=== PATIENT | female | born 1940 | race Caucasian/White ===

== ENCOUNTER → 2016-08-12 | Outpatient (CLI) | payer BC ==
[~2016-08-12] MED LIST: ALBUAER19 INH; AMLO10CA PO; ASCA500 PO; CYAN10004 PO; FISHOIL PO; GLC500 PO; GLCSR25 PO; HYDC25 PO; METO1TAB69 PO; MULT-506 PO; NAPR1TAB9 PO; [UNRECOGNIZED DRUG - OTHER]
--- NOTE | 2016-08-12 15:37 | MAMMOGRAPHY REPORT ---
BILATERAL DIGITAL SCREENING MAMMOGRAM WITH CAD: 08/12/2016 CLINICAL HISTORY: Routine screening. Patient has no complaints. TECHNIQUE: Bilateral CC and MLO views were obtained. Current study was also evaluated with a Comput er Aided Detection (CAD) system. COMPARISON: Comparison is made to exams dated: 08/09/2015 mammogram, 08/03/2014 mammogram, 08/02/2013 m ammogram, 07/29/2012 mammogram, 10/02/2010 mammogram, and 09/18/2009 mammogram - [facility] nter. BREAST COMPOSITION: There are scattered areas of fibroglandular density in both breasts. FINDINGS: There are a few benign round calcifications in the breasts. No suspicious mass, director of architecture ural distortion or cluster of microcalcifications is seen. IMPRESSION: ACR BI-RADS CATEGORY 1: NEGATIVE There is no mammographic evidence of malignancy. A 1 year screening mammogram is recommended. The pa tient will receive written notification of the results. Approximately 10% of breast cancers are not detected with mammography. A negative mammographic report should not delay biopsy if a clinically suggestive mass is present. Lory De La Garza M.D. ay/:08/12/2016 14:52:06 Tailer Off: Ade RUBIO(Alfredo)(M), [facility] letter sent: Normal 1/2 BI-RADS Code: ACR BI-RADS Category 1: Negative
== END | disposition home or self-care (01) ==
LOC: C.MAMM 08:09
PROVIDERS: ATTEND Internal Medicine
DX: Z12.31 Encounter for screening mammogram for malignant neoplasm of breast (principal)

== ENCOUNTER → 2016-08-26 | Outpatient (CLI) | payer BC ==
[2016-08-26 09:47] LABS: BASO % 0.4 %; BASO ABS # 0.03 K/uL (0-0.2); COMPLETE YES; EOS % 3.5 %; HEMATOCRIT 47.8 % (37-47); IG% 0.1 %; LYMPH % 34.2 %; LYMPH ABS # 2.63 K/uL (1.2-3.4); MEAN CELL VOLUME 89.3 fL (80-100); MEAN CORPUSCULAR HEMOGLOBIN 29.2 pg (25-34); MEAN CORPUSCULAR HGB CONC 32.6 g/dl (32-36); MEAN PLATELET VOLUME 10.3 fL (7.4-10.4); MONO % 8.6 %; NEUT % 53.2 %; PLATELET COUNT 247 K/uL (130-400); RED BLOOD COUNT 5.35 M/uL (4.2-5.4)
[2016-08-26 09:49] LABS: URINE APPEARANCE CLEAR (CLEAR); URINE BILIRUBIN NEG (NEG); URINE COLOR YELLOW; URINE NITRITE NEG (NEG); URINE SPECIFIC GRAVITY 1.016 (1.000-1.030); UROBILINOGEN NEG (NEG); ZZUR CULT IF INDIC CLEAN CATCH NO
[2016-08-26 10:01] LABS: MANUAL MICROSCOPIC REQUIRED? NO; REVIEW REQ? NO
[2016-08-26 10:16] LABS: RATIO 11.6 mcg/mg (0-30.0)
[2016-08-26 10:27] LABS: ALT/SGPT 25 U/L (12-78); BLOOD UREA NITROGEN 19 mg/dl (7-18); BUN/CREATININE RATIO 21.3 (10-20); CALCIUM 9.8 mg/dl (8.5-10.1); CARBON DIOXIDE 31 mmol/L (21-32); CHLORIDE 100 mmol/L (98-107); CHOLESTEROL 217 mg/dl (0-200); GLUCOSE 108 mg/dl (70-99); POTASSIUM 3.9 mmol/L (3.5-5.1); SODIUM 138 mmol/L (136-145); TRIGLYCERIDES 220 mg/dl (0-150); VERY LOW DENSITY LIPOPROT CALC 44 mg/dl
[2016-08-26 10:30] LABS: ALB/GLOB RATIO 1.2 (0.9-2); ALKALINE PHOSPHATASE 90 U/L (45-117); AST/SGOT 14 U/L (15-37); CHOLESTEROL/HDL RATIO 5.6; HDL CHOLESTEROL 39 mg/dl; LDL CHOLESTEROL CALCULATED 134 mg/dl
[2016-08-26 10:33] LABS: ESTIMATED AVERAGE GLUCOSE 134 mg/dl; HA1C FLAG Normal (Normal)
--- NOTE | 2016-09-09 08:27 | CODING QUERY MEDICAL NECESSITY ---
CQSUPPORTING DIAGNOSIS NEEDED A supporting diagnosis is required for the test/procedure performed on this patient in order for us to be reimbursed by the patient's insurance. Please provide a supporting diagnosis for the following test/procedure listed below next to the test name along with your signature. *If there is no additional diagnosis for this patient that would support the following test/procedure please document that below next to the test/procedure. Test(s)/Procedure(s) that require a supporting diagnosis: DOS 08/26/16 VITAMIN B12 VITAMIN D Provider Signature: Date: Thank you [facility] Once completed, please kindly fax back to [phone] For questions please call [phone]
== END | disposition home or self-care (01) ==
LOC: C.LAB1850 08:46
PROVIDERS: ATTEND Internal Medicine
DX: E11.21 Type 2 diabetes mellitus with diabetic nephropathy (principal); N39.3 Stress incontinence (female) (male); R26.9 Unspecified abnormalities of gait and mobility; R20.0 Anesthesia of skin

== ENCOUNTER → 2017-01-05 | Outpatient (CLI) | payer BC ==
[~2017-01-05] MED LIST changes: +METO100T44 PO; -METO1TAB69 PO
== END | disposition home or self-care (01) ==
LOC: C.MAMM 09:21
PROVIDERS: ATTEND Internal Medicine
DX: Z13.820 Encounter for screening for osteoporosis (principal); R26.9 Unspecified abnormalities of gait and mobility; T14.8XXA Other injury of unspecified body region, initial encounter; M85.832 Other specified disorders of bone density and structure, left forearm; X58.XXXA Exposure to other specified factors, initial encounter

== ENCOUNTER → 2017-03-03 | Outpatient (CLI) | payer BC ==
[2017-03-03 10:37] LABS: HEMOGLOBIN A1C 6.3 % (4.5-5.6)
[2017-03-03 10:41] LABS: ALT/SGPT 21 U/L (12-78); BLOOD UREA NITROGEN 18 mg/dl (7-18); CALCIUM 9.6 mg/dl (8.5-10.1); CARBON DIOXIDE 29 mmol/L (21-32); CHOLESTEROL 201 mg/dl (0-200); CREATININE 0.79 mg/dl (0.60-1.20); GLUCOSE 147 mg/dl (70-99); POTASSIUM 4.2 mmol/L (3.5-5.1); SODIUM 137 mmol/L (136-145)
[2017-03-03 10:44] LABS: ALKALINE PHOSPHATASE 94 U/L (45-117); AST/SGOT 14 U/L (15-37); LDL CHOLESTEROL CALCULATED 128 mg/dl; TOTAL PROTEIN 7.2 gm/dl (6.4-8.2)
== END | disposition home or self-care (01) ==
LOC: C.LAB1850 09:27
PROVIDERS: ATTEND Internal Medicine
DX: E11.40 Type 2 diabetes mellitus with diabetic neuropathy, unspecified (principal)

== ENCOUNTER → 2017-09-02 | Outpatient (CLI) | payer BC ==
[2017-09-02 10:09] LABS: ALKALINE PHOSPHATASE 75 U/L (45-117); ALT/SGPT 21 U/L (12-78); AST/SGOT 13 U/L (15-37); BLOOD UREA NITROGEN 20 mg/dl (7-18); CARBON DIOXIDE 29 mmol/L (21-32); CREATININE 0.83 mg/dl (0.60-1.20); GLUCOSE 150 mg/dl (70-99); POTASSIUM 3.6 mmol/L (3.5-5.1); SODIUM 138 mmol/L (136-145); TOTAL PROTEIN 7.1 gm/dl (6.4-8.2)
[2017-09-02 10:11] LABS: HEMOGLOBIN A1C 6.3 % (4.5-5.6)
== END | disposition home or self-care (01) ==
LOC: C.LAB1850 07:46
PROVIDERS: ATTEND Internal Medicine
DX: E11.40 Type 2 diabetes mellitus with diabetic neuropathy, unspecified (principal)

== ENCOUNTER → 2017-09-04 | Outpatient (CLI) | payer BC | END | disposition home or self-care (01) | LOC: C.LAB1850 09:44 | PROVIDERS: ATTEND Internal Medicine | DX: E11.40 Type 2 diabetes mellitus with diabetic neuropathy, unspecified (principal) ==

== ENCOUNTER 2017-09-21 16:03 | Emergency (ER) | payer BC ==
[~2017-09-21] VITALS: Ht 161.3 cm; Wt 83.2 kg
[2017-09-21 16:23] VITALS: TEMP 37.1; Ht 161.3 cm; Wt 83.2 kg
[2017-09-21] MEDS ORDERED: ARTIFICIAL TEARS OP SOLN OP STA (18:13)
[2017-09-21] MEDS ORDERED: SODIUM CHLORIDE 0.9% 500ML 500 ML IV STA (18:13)
[2017-09-21] MEDS ORDERED: ONDANSETRON INJ 2 MG/ML 2 ML VIAL IV STA (18:13)
[2017-09-21] MEDS ORDERED: LORATADINE 10 MG TAB PO ONE (18:15)
[2017-09-21 18:37] VITALS: O2SAT 97
--- NOTE | 2017-09-21 18:38 | EMERGENCY ROOM VISIT NOTE ---
History Report prepared by Adis: Dilshad Lopez Under the Supervision of: Dr. Dmitry Torres M.D. First contact with patient: 18:11 Chief Complaint: HYPERTENSION Stated Complaint: HIGH BLOOD PRESSURE History of Present Illness The patient is a 77 year old female who presents to the Emergency Room with complaints of weakness that started today. The patient reports feeling dizzy, tired, nauseous, and shaky. The patient states that she has had blurry vision today but states that she does not feel like the room is spinning. She states that her vision up close is blurry despite wearing reading glasses and reports that she gets her eyes checked once per year. The patient also states that she is hypertensive and that has been constant. The patient states she saw her PCP on September 04 in regards to her blood pressure so her PCP doubled her medication , but she stated her blood pressure is even higher today. The patient also states she has been losing her balance doing everyday tasks such as pulling weeds and walking up stairs for the past year. The patient does state that her family has problems and that it is causing her stress. The patient denies a history of anxiety but states that she has been thinking about her family problems recently. The patient denies chest pain, shortness of breath, urinary symptoms, fevers, and chills. The patient states that she has type 2 diabetes and takes metformin but does not regularly check sugars. She also notes that she has seasonal allergies but does not take medications for them. She also denies a history of GERD and a myocardial infarction. Source of History: patient Onset: today Position: other (gernalized) Quality: other (Weakness) Associated Symptoms: + nausea, + fatigue, No fevers, No chills, No chest pain, No SOB, No vomiting, No urinary symptoms Review of Systems See HPI for pertinent positives and negatives. A total of ten systems were reviewed and were otherwise negative. Past Medical & Surgical Medical Problems: (1) Hypertension (2) Non-insulin dependent type 2 diabetes mellitus Family History Patient reports no known family medical history. Social History Smoking Status: Former Smoker Alcohol Use: none Marital Status: Housing Status: lives with significant other Occupation Status: retired Current/Historical Medications Scheduled Aspirin (Aspirin Ec), 81 MG PO DAILY Benazepril (Lotensin), 20 MG PO BID Cephalexin Monohydrate (Keflex), 500 MG PO BID Cyanocobalamin (Vitamin B12 100 Mcg), 200 MCG PO DAILY Glipizide (Glipizide Er), 5 MG PO DAILY Hydrochlorothiazide (Hctz), 25 MG PO Q2D Metformin Hcl (Glucophage), 1,000 MG PO BIDM Metoprolol Succinate (Metoprolol Succinate ER), 50 MG PO DAILY Multivitamin (Multivitamin), 1 TABLET PO DAILY Psyllium (Metamucil), 2 CAP PO Q12 Saccharomyces Boulardii (Florastor), 1 CAP PO BID Scheduled PRN Albuterol Sulfate (Proventil Hfa), 2 PUFFS INH Q4H PRN for SOB/Wheezing Docusate Sodium (Docusate Sodium), 100 MG PO BID PRN for Constipation Allergies Coded Allergies: Morphine (Verified Adverse Reaction, Unknown, 02/22/12) VOMITS Physical Exam Vital Signs Date Time Temp Pulse Resp B/P (MAP) Pulse Ox O2 Delivery O2 Flow Rate FiO2 09/21/17 20:20 74 09/21/17 20:05 80 20 219/120 96 Room Air 09/21/17 19:11 86 18 207/105 95 Room Air 09/21/17 18:37 97 Room Air 09/21/17 18:06 98 205/124 95 Room Air 09/21/17 16:23 37.1 111 18 197/113 96 Room Air Physical Exam GENERAL: Awake, alert, uncomfortable-appearing, in no distress, fatigued HENT: Normocephalic, atraumatic. Boggy nasal turbinates. Oropharynx unremarkable. Dry,cracked mucous membranes EYES: Normal conjunctiva. Sclera non-icteric. Bilateral hearing. NECK: Supple. No nuchal rigidity. FROM. No JVD. RESPIRATORY: Clear to auscultation. CARDIAC: Regular rate, normal rhythm. Extremities warm and well perfused. Pulses equal. ABDOMEN: Soft, non-distended. No tenderness to palpation. No rebound or guarding. No masses. RECTAL: Deferred. MUSCULOSKELETAL: Chest examination reveals no tenderness. The back is symmetrical on inspection without obvious abnormality. There is no CVA tenderness to palpation. No joint edema. LOWER EXTREMITIES: Calves are equal size bilaterally and non-tender. No edema. No discoloration. NEURO: Normal sensorium. No sensory or motor deficits noted. Normal cerebellar function with [id number]-[id number], alternating palms, gbyr-mn-bqaj. SKIN: No rash or jaundice noted. Medical Decision & Procedures ER Provider Diagnostic Interpretation: Radiology results as stated below per my review and radiologist interpretation: CHEST ONE VIEW PORTABLE CLINICAL HISTORY: 77 years-old Female presenting with CHEST PAIN. TECHNIQUE: Portable upright AP view of the chest was obtained. COMPARISON: 03/22/2012. FINDINGS: Atherosclerosis of the aortic arch. Cardiac silhouette normal in size. No focal opacity. No large effusion or pneumothorax. Degenerative changes of the thoracic spine. Large hiatal hernia. IMPRESSION: 1. No acute cardiopulmonary disease. 2. Large hiatal hernia. Electronically signed by: Ming Bermudez M.D. 09/21/2017 7:00 PM Dictated Date/Time: 09/21/2017 6:59 PM HEAD WITHOUT CONTRAST (CT) CLINICAL HISTORY: 77 years-old Female presenting with dizziness, high blood pressure, headache. TECHNIQUE: Multidetector CT imaging of the head was performed without the use of intravenous contrast. IV contrast: None. A dose lowering technique was used consistent with the principles of ALARA (as low as reasonably achievable). COMPARISON: 11/12/2012. CT DOSE (mGy.cm): The estimated cumulative dose is 537.48 mGy.cm. FINDINGS: Software Implementation Project Manager topogram: Unremarkable. Ventricles and sulci normal in size. Brain parenchyma normal in appearance with preserved harper-white differentiation. No mass effect or midline shift. No hemorrhage or acute territorial infarct. No extra-axial fluid collection. Paranasal sinuses and mastoid air cells clear. Calvarium intact. IMPRESSION: 1. No acute intracranial abnormality. Electronically signed by: Ming Bermudez M.D. 09/21/2017 7:29 PM Dictated Date/Time: 09/21/2017 7:27 PM Laboratory Results 09/21/17 18:50 Red Blood Count 4.90, Mean Corpuscular Volume 91.2, Mean Corpuscular Hemoglobin 31.4, Mean Corpuscular Hemoglobin Concent 34.5, Mean Platelet Volume 10.3, Neutrophils (%) (Auto) 51.9, Lymphocytes (%) (Auto) 36.7, Monocytes (%) (Auto) 6.6, Eosinophils (%) (Auto) 3.9, Basophils (%) (Auto) 0.6, Neutrophils # (Auto) 3.76, Lymphocytes # (Auto) 2.66, Monocytes # (Auto) 0.48, Eosinophils # (Auto) 0.28, Basophils # (Auto) 0.04 09/21/17 18:50 09/21/17 19:46 Test 09/21/17 18:50 09/21/17 19:46 09/21/17 20:07 White Blood Count 7.24 K/uL (4.8-10.8) Red Blood Count 4.90 M/uL (4.2-5.4) Hemoglobin 15.4 g/dL (12.0-16.0) Hematocrit 44.7 % (37-47) Mean Corpuscular Volume 91.2 fL (80-100) Mean Corpuscular Hemoglobin 31.4 pg (25-34) Mean Corpuscular Hemoglobin Concent 34.5 g/dl (32-36) Platelet Count 210 K/uL (130-400) Mean Platelet Volume 10.3 fL (7.4-10.4) Neutrophils (%) (Auto) 51.9 % Lymphocytes (%) (Auto) 36.7 % Monocytes (%) (Auto) 6.6 % Eosinophils (%) (Auto) 3.9 % Basophils (%) (Auto) 0.6 % Neutrophils # (Auto) 3.76 K/uL (1.4-6.5) Lymphocytes # (Auto) 2.66 K/uL (1.2-3.4) Monocytes # (Auto) 0.48 K/uL (0.11-0.59) Eosinophils # (Auto) 0.28 K/uL (0-0.5) Basophils # (Auto) 0.04 K/uL (0-0.2) RDW Standard Deviation 43.4 fL (36.4-46.3) RDW Coefficient of Variation 13.1 % (11.5-14.5) Immature Granulocyte % (Auto) 0.3 % Immature Granulocyte # (Auto) 0.02 K/uL (0.00-0.02) Anion Gap 7.0 mmol/L (3-11) Est Creatinine Clear Calc Drug Dose 63.2 ml/min Estimated GFR () 86.3 Estimated GFR (Non- 74.5 BUN/Creatinine Ratio 19.2 (10-20) Calcium Level 9.0 mg/dl (8.5-10.1) Phosphorus Level 2.3 mg/dl (2.5-4.9) Total Bilirubin 0.4 mg/dl (0.2-1) Alanine Aminotransferase (ALT/SGPT) 25 U/L (12-78) Alkaline Phosphatase 84 U/L (45-117) Troponin I < 0.015 ng/ml (0-0.045) Pro-B-Type Natriuretic Peptide 156 pg/ml (0-1800) Total Protein 7.4 gm/dl (6.4-8.2) Albumin 3.8 gm/dl (3.4-5.0) Lipase 81 U/L (73-393) Magnesium Level 1.6 mg/dl (1.8-2.4) Direct Bilirubin 0.1 mg/dl (0-0.2) Aspartate Amino Transf (AST/SGOT) 15 U/L (15-37) Urine Color YELLOW Urine Appearance CLEAR (CLEAR) Urine pH 6.5 (4.5-7.5) Urine Specific Rew 1.022 (1.000-1.030) Urine Protein NEG (NEG) Urine Glucose (UA) NEG (NEG) Urine Ketones TRACE (NEG) Urine Occult Blood NEG (NEG) Urine Nitrite POS (NEG) Urine Bilirubin NEG (NEG) Urine Urobilinogen NEG (NEG) Urine Leukocyte Esterase SMALL (NEG) Urine WBC (Auto) 5-10 /hpf (0-5) Urine RBC (Auto) 0-4 /hpf (0-4) Urine Hyaline Casts (Auto) 1-5 /lpf (0-5) Urine Epithelial Cells (Auto) 10-20 /lpf (0-5) Urine Bacteria (Auto) 4+ (NEG) Laboratory results reviewed by me Medications Administered Medications (Trade) Dose Ordered Sig/Tameka Route Start Time Stop Time Status Last Admin Dose Admin Sodium Chloride 500 ml @ 999 mls/hr Q31M STAT IV 09/21/17 18:13 09/21/17 18:43 DC 09/21/17 19:09 999 MLS/HR Loratadine (Claritin Tab) 10 mg NOW ONCE PO 09/21/17 18:15 09/21/17 18:26 DC 09/21/17 19:09 10 MG Artificial Tears (Artificial Tears) 2 drops NOW STAT OP 09/21/17 18:13 09/21/17 18:26 DC 09/21/17 19:10 2 DROPS Potassium/ Phosphorus/Sodium (Phospha 250 Neutral 155-852-130 Mg) 2 tab NOW STAT PO 09/21/17 19:45 09/21/17 19:47 DC 09/21/17 20:04 2 TAB ECG Per My Interpretation Indication: other (Hypertension) Rate (beats per minute): 88 Rhythm: normal sinus Findings: no acute ischemic change, other (Normal [place]) ED Course 1811: The patient was evaluated in room A9. A complete history and physical exam was performed. Medical Decision I reviewed the patient's past medical history, medications, and the nursing notes as described above. Differential diagnosis: Etiologies such as metabolic, infection, hypo/hyperglycemia, electrolyte abnormalities, cardiac sources, intracerebral event, toxicologic, neurologic, as well as others were entertained. The patient is a 77-year-old woman with a past medical history of hypertension who presents emergency department with dizziness, blurred vision, generalized weakness per hpi. On arrival the patient is fatigued and uncomfortable but no acute distress, afebrile, HR 111, hypertensive 200s/120s otherwise stable. On exam, patient appears clinically dry. Neurologically intact including normal cerebellar function with dvvoap-lx-cloe, alternating palms, xlvu-pn-mpne. Patient has bilateral tearing from her eyes and some mild nasal congestion which she reports is chronic due to her seasonal allergies. Additionally the patient reports she has been under a lot of family stress for years and while she denies any new stress related to this her feels she has been perseverating over this recently. The patient does become tearful when we refer to these issues. EKG unremarkable without acute ischemia. Chest x-ray negative. CT head negative for acute findings. UA consistent with UTI with positive nitrites, WBCs, 4+ bacteria. Patient was given IV fluids, electrolyte repletion with improvement in her symptoms and resolution of her blurred vision/tearing. Additionally patient's heart rate improved to the 80s. Pressure still elevated however given the patient's clinical improvement with hydration alone, in the setting of UTI, patient's hypertension likely the primary factor related to her symptoms. Will treat with Keflex. Plan for PCP follow-up. Findings and plan for follow-up reviewed with patient. Patient agreeable and d/c'd per discharge instructions. Head Trauma GCS Score: 13 Medication Reconcilliation Current Medication List: was personally reviewed by me Blood Pressure Screening Patient's blood pressure: Elevated blood pressure Blood pressure disposition: Referred to PCP Impression Primary Impression: Urinary tract infection Additional Impressions: Dehydration Dizziness Scribe Attestation The scribe's documentation has been prepared under my direction and personally reviewed by me in its entirety. I confirm that the note above accurately reflects all work, treatment, procedures, and medical decision making performed by me. Departure Information Dispostion Home / Self-Care Prescriptions Saccharomyces Boulardii (Florastor) 250 Mg Cap 1 CAP PO BID for 10 Days, #20 CAP Prov: Dmitry Torres M.D. 09/21/17 Cephalexin Monohydrate (KEFLEX) 500 Mg Cap 500 MG PO BID for 7 Days, #14 CAP Prov: Dmitry Torres M.D. 09/21/17 Referrals RV. Quintero MD (PCP) Forms HOME CARE DOCUMENTATION FORM, IMPORTANT VISIT INFORMATION, WORK / SCHOOL INSTRUCTIONS Patient Instructions ED Dehydration, ED UTI Cystitis Female, High Blood Pressure, My [facility] Additional Instructions Please follow up with your primary care physician in the next 1-3 days for re- evaluation and to recheck your electrolytes (today your Magnesium was 1.6 and your phosphorus was 2.3) and discuss management of your blood pressure. Your symptoms are likely related to mild dehydration in the setting of a urinary tract infection. Otherwise, your exam, EKG, chest xray, and lab results did not show signs of an emergent condition at this time. Keflex as directed. Florastor, probiotic, to help prevent antibiotic associated diarrhea. Daily multi-vitamin. Okhn-wcn-okcswng anti-histamine (e.g. Claritin, Zyrtec) as needed for seasonal allergies. Artificial tears as needed for seasonal allergy related eye-irritation. Drink plenty of fluids to ensure hydration. Return to the emergency department for worsening symptoms as described in the accompanying instructions. Problem Qualifiers
[2017-09-21 18:56] LABS: BASO % 0.6 %; BASO ABS # 0.04 K/uL (0-0.2); EOS % 3.9 %; EOS ABS # 0.28 K/uL (0-0.5); HEMATOCRIT 44.7 % (37-47); HEMOGLOBIN 15.4 g/dL (12.0-16.0); IG# 0.02 K/uL (0.00-0.02); LYMPH % 36.7 %; LYMPH ABS # 2.66 K/uL (1.2-3.4); MEAN CELL VOLUME 91.2 fL (80-100); MEAN CORPUSCULAR HEMOGLOBIN 31.4 pg (25-34); MEAN CORPUSCULAR HGB CONC 34.5 g/dl (32-36); MEAN PLATELET VOLUME 10.3 fL (7.4-10.4); MONO % 6.6 %; MONO ABS # 0.48 K/uL (0.11-0.59); NEUT % 51.9 %; NEUT ABS # 3.76 K/uL (1.4-6.5); PLATELET COUNT 210 K/uL (130-400); RED CELL DISTRIBUTION WIDTH CV 13.1 % (11.5-14.5); RED CELL DISTRIBUTION WIDTH SD 43.4 fL (36.4-46.3); WHITE BLOOD COUNT 7.24 K/uL (4.8-10.8)
[2017-09-21] MEDS ORDERED: METF-384 PO (19:00)
--- NOTE | 2017-09-21 19:01 | DIAGNOSTIC IMAGING REPORT ---
CHEST ONE VIEW PORTABLE CLINICAL HISTORY: 77 years-old Female presenting with CHEST PAIN. TECHNIQUE: Portable upright AP view of the chest was obtained. COMPARISON: 03/22/2012. FINDINGS: Atherosclerosis of the aortic arch. Cardiac silhouette normal in size. No focal opacity. No large effusion or pneumothorax. Degenerative changes of the thoracic spine. Large hiatal hernia. IMPRESSION: 1. No acute cardiopulmonary disease. 2. Large hiatal hernia. Electronically signed by: Ming Bermudez M.D. 09/21/2017 7:00 PM Dictated Date/Time: 09/21/2017 6:59 PM
[2017-09-21] MEDS ORDERED: GLIP-197 PO (19:02)
[2017-09-21] MEDS ORDERED: ASPI81TA28 PO (19:02)
[2017-09-21] MEDS ORDERED: HYDR25TA4 PO (19:04)
[2017-09-21] MEDS ORDERED: TPRSR50 PO (19:05)
[2017-09-21] MEDS ORDERED: BENA20TA14 PO (19:07)
[2017-09-21] MEDS ORDERED: CYAN100T6 PO (19:09)
[2017-09-21] MEDS ORDERED: PSYL0.524 PO (19:11)
[2017-09-21] MEDS ORDERED: DOCU100C31 PO (19:13)
[2017-09-21] MEDS ORDERED: ALBUAER INH (19:15)
--- NOTE | 2017-09-21 19:30 | DIAGNOSTIC IMAGING REPORT ---
HEAD WITHOUT CONTRAST (CT) CLINICAL HISTORY: 77 years-old Female presenting with dizziness, high blood pressure, headache. TECHNIQUE: Multidetector CT imaging of the head was performed without the use of intravenous contrast. IV contrast: None. A dose lowering technique was used consistent with the principles of ALARA (as low as reasonably achievable). COMPARISON: 11/12/2012. CT DOSE (mGy.cm): The estimated cumulative dose is 537.48 mGy.cm. FINDINGS: Family Nurse Practitioner topogram: Unremarkable. Ventricles and sulci normal in size. Brain parenchyma normal in appearance with preserved harper-white differentiation. No mass effect or midline shift. No hemorrhage or acute territorial infarct. No extra-axial fluid collection. Paranasal sinuses and mastoid air cells clear. Calvarium intact. IMPRESSION: 1. No acute intracranial abnormality. Electronically signed by: Ming Bermudez M.D. 09/21/2017 7:29 PM Dictated Date/Time: 09/21/2017 7:27 PM
[2017-09-21 19:33] LABS: ALBUMIN 3.8 gm/dl (3.4-5.0); ALKALINE PHOSPHATASE 84 U/L (45-117); ALT/SGPT 25 U/L (12-78); BLOOD UREA NITROGEN 15 mg/dl (7-18); CARBON DIOXIDE 27 mmol/L (21-32); CREATININE 0.77 mg/dl (0.60-1.20); GLUCOSE 124 mg/dl (70-99); LIPASE 81 U/L (73-393); PHOSPHORUS 2.3 mg/dl (2.5-4.9); SODIUM 141 mmol/L (136-145); TOTAL PROTEIN 7.4 gm/dl (6.4-8.2)
[2017-09-21] MEDS ORDERED: POT PHOSPHATE MONOBASIC W/ SOD TAB PO STA (19:45)
[2017-09-21] MEDS ORDERED: CEPHALEXIN MONOHYDRATE 250 MG CAP PO STA (20:27)
[2017-09-21 20:28] LABS: POTASSIUM 3.8 mmol/L (3.5-5.1)
[2017-09-21] MEDS ORDERED: MAGNESIUM OXIDE 400 MG TAB PO STA (20:39)
[2017-09-21] MEDS ORDERED: CEPH500C2 PO (20:52)
[2017-09-21] MEDS ORDERED: SACC250C3 PO (20:54)
[2017-09-21 21:25] VITALS: BP 206/122; PULSE 81; O2SAT 95
--- NOTE | 2017-09-23 14:51 | Pharmacy Progress Note ---
ED Pharmacist Culture FollowUp Date of Service: Sep 23, 2017. Patient was sent home with a prescription for cephalexin, which should cover the E. coli growing from the patient's urine culture, based on reported sensitivity to cefazolin.
== END 2017-09-21 21:37 | disposition home or self-care (01) ==
LOC: C.EDB 16:04 → C.EDA 21:37
DX: N39.0 Urinary tract infection, site not specified (principal); E86.0 Dehydration; R42 Dizziness and giddiness; E83.42 Hypomagnesemia; J30.2 Other seasonal allergic rhinitis; I10 Essential (primary) hypertension; E11.9 Type 2 diabetes mellitus without complications; Z79.84 Long term (current) use of oral hypoglycemic drugs; Z79.899 Other long term (current) drug therapy; Z79.82 Long term (current) use of aspirin; Z87.891 Personal history of nicotine dependence; Z88.6 Allergy status to analgesic agent

== ENCOUNTER 2022-05-11 10:07 | Inpatient (IN) ==
[2022-05-11] MEDS ORDERED: HYDROcodone/HOMATROPINE SYRUP 5MG/1.5MG 5ML UDP PO STA (10:25)
[2022-05-11] MEDS ORDERED: ALBUT/IPRATROP 3MG/0.5MG NEB 3 ML VIAL NEB ONE (10:25)
[2022-05-11] MEDS ORDERED: SODIUM CHLORIDE 0.9% 1000ML 1,000 ML IV ONE (10:25)
--- NOTE | 2022-05-11 10:30 | Emergency Department Note ---
Impression & Plan COVID-19, Weakness, Hypomagnesemia, COPD with acute exacerbation, Hypoxia ED Provider Note Name: TABATHA SIM Age: 81 Sex: F Arrives Via: Walk-In Informant: Patient, ED Provider: Erik Hyde MD Chief Complaint: Illness and breathing difficulty Impression: As per impression above Medical Decision Makin-year-old female with history of COPD arrives for evaluation of 7 days of worsening illness. Patient with increasing cough, congestion, breathing diff iculty, weakness, lack of appetite and weight loss. On examination patient has diffusely tight lung sounds and breathing difficulty. She has initially good O2 sat but is working quite hard. She was given an hour-long nebulizer with vast improvement in breathing but is a bit hypoxic now. She has a chest x-ray which is essentially unremarkable. Bio fire is positive for COVID-19. Her labs are r emarkable for quite low magnesium which replacement was started here in the ER. Patient does not have any evidence of cardiac issue and her symptoms are not consistent with PE but more consistent with her COVID infection that she been dealing with for the last week. With her COPD history and her breathing difficulty and the worsening hypoxia she was given IV Decadron as well. No clear indication for antibiotics at this time. In the setting of hypoxia low magnesium COVID and generalized weakness clearly she requires hospitalization. She is comfortable with this plan as is . Prior Medical Record and Triage/Nursing Notes reviewed by Me External chart reviewed by me Differentials:COPD exacerbation, COVID, pneumonia, pneumothorax, electrolyte imbalance, dehydration amongst many other pathologies considered Vital Signs: reviewed and remarkable for hypoxia. I will note that blood pressure on multiple rechecks was stable throughout her stay under my care Interventions: Saline bolus, Decadron 10 mg IV, magnesium 1 g IV, DuoNeb 1 hour nebulizer Labs:Reviewed and remarkable for hypomagnesemia, positive COVID, multiple other labs reviewed Imagin view chest x-ray as per my interpretation. There is no overt lobar infiltrate other than some mild congestion at the bases noted. Cardiac/Tele Monitoring: Cardiac Monitoring: An Order was placed for continuous cardiac monitoring. The monitor shows a rate of 80 with a normal sinus rhythm. Consults:Dr Abbey RODRIGUEZ Hospitalist Plan: Disposition:Hospitalization. Condition: Fair History of Present Illness:81-year-old female arrives for evaluation illness. Patient has been sick for the last week. Associated cough, sore throat, congestion, body aches, fatigue, weakness and lack of appetite. She is lost about 5 to 10 pounds in the last week. States she has 0 appetite. Denies any syncope, chest pain, back pain, abdominal pain, urinary/bowel symptoms, leg swelling, calf pain or other concerning signs or symptoms. Not taking any medications for this. Notes has been has been sick for the last few days as well. Patient states she cannot control her cough. States cough is harsh no nproductive. Past History:Type 2 diabetes, hypertension, osteoporosis, hyperlipidemia triglyceridemia, COPD, multiple other see chart Home Medications:See Below Allergies:Morphine and gabapentin Vitals:Blood Pressure: 104/60, Pulse 76, RR 20, T 36.4C, O2 95% on RA Physical Exam: GENERAL: Patient is unwell appearing and in moderate distress. Harsh productive cough EYES: No scleral icterus, unremarkable pupils. ENT: Mucous membranes dry, no nasal congestion. NECK: No masses appreciated, RESPIRATORY: Very tight lung sounds moving minimal air with a harsh n onproductive cough CARDIOVASCULAR: Regular rate and rhythm.No murmurs, rubs, gallops appreciated. GASTROINTESTINAL: Abdomen soft, non-tender, no peritonitis. BACK: No midline tenderness, no CVA tenderness EXTREMITIES: Normal motion all extremities, no cyanosis, no edema. NEUROLOGIC: Alert and oriented, no focal neurologic deficit appreciated SKIN: No rash, no jaundice, no diaphoresis. PSYCH: Appropriate GCS: 15 ED Course: Times/Reassessments: Patient is significantly improved breathing with lung nebulizer however oxygen saturation is worsened. Cough is a bit improved as well. She does look more comfortable. Agreeable to hospitalization Critical Care: I have personally spent 40 minutes of critical care time in the direct management of this patient. Acute hypoxia respiratory distress secondary to COVID 19 along with significant hypomagnesium requiring repletion. This was a life/limb threatening event. This 40 minutes is in excess of all separately billable procedures. Erik yHde MD Past Med/Surg History Medical History (Updated 05/11/22 @ 15:34 by Erik Hyde MD) Chronic obstructive pulmonary disease Controlled type 2 diabetes with neuropathy Diabetic nephropathy Diabetic peripheral neuropathy associated with type 2 diabetes mellitus Essential hypertriglyceridemia Fall, accidental Hip fracture Internal hemorrhoids Low back pain Osteopenia Seborrheic dermatitis Sensorineural hearing loss (SNHL) of both ears Stress incontinence in female URI (upper respiratory infection) Surgical History History of back surgery History of removal of cyst Hx of tonsillectomy S/P appendectomy Family History Father Emphysema of lung Sister Breast cancer Denies family history of Ovarian cancer Prostate cancer Myocardial infarction Colorectal cancer Social History Smoking Status: Never smoker Second Hand Exposure: Yes; Hx Alcohol Use: No Hx Substance Use: No Preferred Language: Cypriot Primary Care Pediatrician Required: No marital status: Current Living Situation: Spouse current occupational status: retired Feels Safe at Home: Yes Childhood Exposure to Second-Hand Smoke: Yes Dental Care, Regularly: Yes Physical Activity Frequency: 1-2 Times per Week Seatbelt Use: always Sunscreen Use: Yes Allergies Allergies Allergy/AdvReac Type Severity Reaction Status Date / Time gabapentin AdvReac Unknown Confusion Verified 10/31/21 08:42 morphine AdvReac Unknown Unknown Verified 08/12/21 09:13 Home Meds Home Medications Medication Instructions Recorded Confirmed cyanocobalamin (vitamin B-12) 100 200 mcg PO BID #30 tabs 09/07/18 05/11/22 mcg tablet metoprolol succinate 100 mg 100 mg PO HS 05/11/22 05/11/22 tablet,extended release 24 hr Previous Rx's Medication Instructions Recorded cholecalciferol (vitamin D3) 25 1,000 units PO DAILY #30 caps 09/07/18 mcg (1,000 unit) capsule albuterol sulfate 90 mcg/actuation 1 - 2 puffs inhalation Q6H PRN 10/26/18 aerosol inhaler shortness of breath or wheezing #18 grams naproxen sodium 220 mg capsule 220 mg PO BID PRN pain #10 caps 03/15/20 (Aleve) amlodipine 10 mg tablet 10 mg PO DAILY #90 tabs 12/04/21 benazepril 20 mg tablet 20 mg PO DAILY #90 tabs 12/04/21 metformin 1,000 mg tablet 1,000 mg PO BID #180 tabs 12/04/21 hydrochlorothiazide 25 mg tablet See Rx Instructions .Route 01/16/22 .COMPLEX #45 tabs glipizide 5 mg tablet, extended 5 mg PO DAILY #90 tabs 04/25/22 release 24 hr blood sugar diagnostic (OneTouch #100 ea 04/29/22 Verio test strips) Results & Data (ED) Vital Signs Vital Signs - 24 hr 05/11/22 10:13 05/11/22 10:47 05/11/22 11:53 Temperature 36.4 C L Temperature Source Temporal Artery Scan Pulse Rate 76 83 Pulse Rate [Right Finger] 74 Respiratory Rate 20 18 Respiratory Effort / Characteristics Non-Labored Non-Labored Spontaneous Respiratory Depth Normal Pulse Oximetry 95 96 Oxygen Delivery Method Room Air Room Air Oxygen Flow Rate Sepsis Recent Fever Within 48 Hours No Sepsis New/Unexplained Change in Mental Status N/A Sepsis Action Taken by Nursing No Action Required 05/11/22 12:29 05/11/22 12:31 Temperature Temperature Source Pulse Rate Pulse Rate [Right Finger] Respiratory Rate 20 Respiratory Effort / Characteristics Respiratory Depth Pulse Oximetry 85 L 90 Oxygen Delivery Method Room Air Nasal Cannula Oxygen Flow Rate 2 2 Sepsis Recent Fever Within 48 Hours Sepsis New/Unexplained Change in Mental Status Sepsis Action Taken by Nursing Laboratory Data 05/11/22 10:45 05/11/22 10:45 Lab Results 05/11/22 05/11/22 05/11/22 Range/Units 10:45 10:45 10:45 WBC 4.89 (4.8-10.8) K/ul RBC 5.41 H (4.20-5.40) M/uL Hgb 15.8 (12.0-16.0) g/dl Hct 47.2 H (37.0-47.0) % MCV 87.2 (80.0-100.0) fL MCH 29.2 (25.0-34.0) pg MCHC 33.5 (32.0-36.0) g/dL RDW Std Deviation 43.9 (36.4-46.3) fL RDW Coeff of Latasha 13.8 (11.5-14.5) % Plt Count 202 (130-400) K/uL MPV 11.4 (9.4-12.4) fL Immature Gran % (Auto) 0.2 % Neut % (Auto) 53.0 % Lymph % (Auto) 33.5 % Bollinger % (Auto) 12.3 % Eos % (Auto) 0.4 % Baso % (Auto) 0.6 % Neut # (Auto) 2.59 (1.40-6.50) K/uL Lymph # (Auto) 1.64 (1.2-3.4) K/uL Bollinger # (Auto) 0.60 H (0.11-0.59) K/uL Eos # (Auto) 0.02 (0-0.50) K/uL Baso # (Auto) 0.03 (0-0.2) K/uL Immature Gran # (Auto) 0.01 (0.01-0.20) K/uL ESR (0-30) mm/hr Sodium 139 (136-145) mmol/L Potassium 3.9 (3.5-5.1) mmol/L Chloride 101 (98-107) mmol/L Carbon Dioxide 27 (21-32) mmol/L Anion Gap 11 (3-11) BUN 27 H (6-23) mg/dl Creatinine 1.05 (0.6-1.2) mg/dl Est Cr Clr Drug Dosing 39.3 ml/min Est GFR ( Amer) 57.7 ml/min Est GFR (Non-Af Amer) 49.8 ml/min BUN/Creatinine Ratio 25.7 H (10-20) Glucose 157 H (70-99(Fasting)) mg/dl Calcium 9.3 (8.6-10.3) mg/dl Magnesium 1.3 L (1.7-2.4) mg/dl Troponin I High Sens 4.4 (0-14) pg/ml C-Reactive Protein 3.28 H (0-0.5) mg/dl Adenovirus (PCR) Not Detected (NotDetected) B. pertussis DNA (PCR) Not Detected (NotDetected) B.parapertussis DNA PCR Not Detected (NotDetected) C. pneumoniae DNA (PCR) Not Detected (NotDetected) Coronavirus OC43 (PCR) Not Detected (NotDetected) Coronavirus HKU1 (PCR) Not Detected (NotDetected) Coronavirus 229E (PCR) Not Detected (NotDetected) SARS-CoV-2 (PCR) DETECTED A* (NotDetected) Coronavirus NL63 (PCR) Not Detected (NotDetected) Human Metapneumovir PCR Not Detected (NotDetected) Influenza Type A (PCR) Not Detected (NotDetected) Influenza Type B (PCR) Not Detected (NotDetected) M. pneumoniae (PCR) Not Detected (NotDetected) Parainfluenza 1 (PCR) Not Detected (NotDetected) Parainfluenza 2 (PCR) Not Detected (NotDetected) Parainfluenza 3 (PCR) Not Detected (NotDetected) Parainfluenza 4 (PCR) Not Detected (NotDetected) RSV (PCR) Not Detected (NotDetected) Entero/Rhino (PCR) Not Detected (NotDetected) 05/11/22 Range/Units 10:45 WBC (4.8-10.8) K/ul RBC (4.20-5.40) M/uL Hgb (12.0-16.0) g/dl Hct (37.0-47.0) % MCV (80.0-100.0) fL MCH (25.0-34.0) pg MCHC (32.0-36.0) g/dL RDW Std Deviation (36.4-46.3) fL RDW Coeff of Latasha (11.5-14.5) % Plt Count (130-400) K/uL MPV (9.4-12.4) fL Immature Gran % (Auto) % Neut % (Auto) % Lymph % (Auto) % Bollinger % (Auto) % Eos % (Auto) % Baso % (Auto) % Neut # (Auto) (1.40-6.50) K/uL Lymph # (Auto) (1.2-3.4) K/uL Bollinger # (Auto) (0.11-0.59) K/uL Eos # (Auto) (0-0.50) K/uL Baso # (Auto) (0-0.2) K/uL Immature Gran # (Auto) (0.01-0.20) K/uL ESR 16 (0-30) mm/hr Sodium (136-145) mmol/L Potassium (3.5-5.1) mmol/L Chloride (98-107) mmol/L Carbon Dioxide (21-32) mmol/L Anion Gap (3-11) BUN (6-23) mg/dl Creatinine (0.6-1.2) mg/dl Est Cr Clr Drug Dosing ml/min Est GFR ( Amer) ml/min Est GFR (Non-Af Amer) ml/min BUN/Creatinine Ratio (10-20) Glucose (70-99(Fasting)) mg/dl Calcium (8.6-10.3) mg/dl Magnesium (1.7-2.4) mg/dl Troponin I High Sens (0-14) pg/ml C-Reactive Protein (0-0.5) mg/dl Adenovirus (PCR) (NotDetected) B. pertussis DNA (PCR) (NotDetected) B.parapertussis DNA PCR (NotDetected) C. pneumoniae DNA (PCR) (NotDetected) Coronavirus OC43 (PCR) (NotDetected) Coronavirus HKU1 (PCR) (NotDetected) Coronavirus 229E (PCR) (NotDetected) SARS-CoV-2 (PCR) (NotDetected) Coronavirus NL63 (PCR) (NotDetected) Human Metapneumovir PCR (NotDetected) Influenza Type A (PCR) (NotDetected) Influenza Type B (PCR) (NotDetected) M. pneumoniae (PCR) (NotDetected) Parainfluenza 1 (PCR) (NotDetected) Parainfluenza 2 (PCR) (NotDetected) Parainfluenza 3 (PCR) (NotDetected) Parainfluenza 4 (PCR) (NotDetected) RSV (PCR) (NotDetected) Entero/Rhino (PCR) (NotDetected) Administered Medications Remdesivir 200 mg/ Sodium (Chloride) 250 mls @ 125 mls/hr IV TODAY@1430 ONE; Protocol Stop: 05/11/22 16:29 Last Admin: 05/11/22 14:31 Dose: 125 mls/hr Documented By: NMS Discontinued Medications Albuterol (Albut/Ipratrop 3mg/0.5mg Neb 3 Ml Vial) 12 ml NEB ONE ONE; Protocol Stop: 05/11/22 10:26 Last Admin: 05/11/22 10:47 Dose: 12 ml Documented By: EAM Dexamethasone Sodium Phosphate (DexamethasonePf 10 Mg/Ml Vial) 10 mg IV NOW ONE Stop: 05/11/22 11:46 Last Admin: 05/11/22 12:16 Dose: 10 mg Documented By: ALENA Hydrocodone Bit/Homatropine Methylb (Hydrocodone/Homatropine Syrup 5mg/1.5mg 5ml Udp) 5 ml PO NOW STA Stop: 05/11/22 10:26 Last Admin: 05/11/22 10:48 Dose: 5 ml Documented By: DAHIANA Sodium Chloride (Nss 1000ml) 1,000 mls @ 999 mls/hr IV .Q1H1M ONE Stop: 05/11/22 11:25 Last Infusion: 05/11/22 12:00 Dose: 0 mls/hr Documented By: Admin: 05/11/22 10:48 Dose: 999 mls/hr Documented By: DAHIANA Magnesium Sulfate/Dextrose (Magnesium Sulfate / D5w) 1 gm in 100 mls @ 100 mls/hr IV NOW STA Stop: 05/11/22 12:42 Last Infusion: 05/11/22 13:28 Dose: 0 mls/hr Documented By: Admin: 05/11/22 12:16 Dose: 100 mls/hr Documented By: ALENA Imaging Data Radiologist's Impression: Chest X-Ray 05/11/22 10:26 XR chest 1V portable CLINICAL HISTORY: cough TECHNIQUE: Single frontal radiograph of the chest was obtained. Comparison: Comparison is made to chest radiograph 05/06/2019 FINDINGS: No lines and tubes are seen. The cardiomediastinal silhouette is normal. The lungs are clear. No evidence of pleural effusion or pneumothorax. A hiatal hernia is seen. IMPRESSION: No acute abnormalities and in particular no radiographic evidence of pneumonia. ACT 112: Negative or not required by law. Electronically signed by: Margarito Cordero M.D. 05/11/2022 10:49 AM Discharge Plan Visit Data Chief Complaint: Flu Like Symptoms Stated Complaint: SORE THROAT, FATIGUE, BODY ACHES ED Provider: Erik Hyde Discharge Problem: COVID-19, Weakness, Hypomagnesemia, COPD with acute exacerbation, Hypoxia Discharge Instructions Interventions: ED Discharge Assessment Last Done: 05/11/22 13:54
--- NOTE | 2022-05-11 10:50 | XRay Report ---
XR chest 1V portable CLINICAL HISTORY: cough TECHNIQUE: Single frontal radiograph of the chest was obtained. Comparison: Comparison is made to chest radiograph 05/06/2019 FINDINGS: No lines and tubes are seen. The cardiomediastinal silhouette is normal. The lungs are clear. No evid ence of pleural effusion or pneumothorax. A hiatal hernia is seen. IMPRESSION: No acute abnormalities and in particular no radiographic evidence of pneumonia. ACT 112: Negative or not required by law. Electronically signed by: Margarito Cordero M.D. 05/11/2022 10:49 AM
[2022-05-11 11:07] LABS: Basophils # (auto) 0.03 K/uL (0-0.2); Basophils % (auto) 0.6 %; Eosinophils # (auto) 0.02 K/uL (0-0.50); Eosinophils % (auto) 0.4 %; Hematocrit (blood only) 47.2 % (37.0-47.0); Hemoglobin 15.8 g/dl (12.0-16.0); Immature Granulocytes # (auto) 0.01 K/uL (0.01-0.20); Immature Granulocytes % (auto) 0.2 %; Lymphocytes # (auto) 1.64 K/uL (1.2-3.4); Lymphocytes % (auto) 33.5 %; Mean Corpuscular Hemoglobin 29.2 pg (25.0-34.0); Mean Corpuscular Hgb Conc 33.5 g/dL (32.0-36.0); Mean Corpuscular Volume 87.2 fL (80.0-100.0); Mean Platelet Volume 11.4 fL (9.4-12.4); Monocytes % (auto) 12.3 %; Neutrophils # (auto) 2.59 K/uL (1.40-6.50); Platelet Count 202 K/uL (130-400); RDW Coefficient of Variation 13.8 % (11.5-14.5); RDW Standard Deviation 43.9 fL (36.4-46.3); Red Blood Count 5.41 M/uL (4.20-5.40); White Blood Count 4.89 K/ul (4.8-10.8)
[2022-05-11 11:31] LABS: Calcium 9.3 mg/dl (8.6-10.3); Magnesium 1.3 mg/dl (1.7-2.4); Potassium 3.9 mmol/L (3.5-5.1)
[2022-05-11 11:34] LABS: Troponin I High Sensitivity 4.4 pg/ml (0-14)
[2022-05-11 11:36] LABS: BUN Creatinine Ratio 25.7 (10-20); Creatinine Clr Calc Pharmacy 39.3 ml/min; Est GFR (African American) 57.7 ml/min; Est GFR (Non-African American) 49.8 ml/min
[2022-05-11] MEDS ORDERED: MAGNESIUM SULFATE / D5W 1 GM/100 ML BAG IV STA (11:43)
[2022-05-11] MEDS ORDERED: dexAMETHasone**PF** 10 MG/ML VIAL IV ONE (11:45)
[2022-05-11 12:16] LABS: Adenovirus PCR Not Detected (NotDetected); Bordetella parapertussis PCR Not Detected (NotDetected); Bordetella pertussis PCR Not Detected (NotDetected); Chlamydia pneumoniae PCR Not Detected (NotDetected); Coronavirus 229E PCR Not Detected (NotDetected); Coronavirus HKU1 PCR Not Detected (NotDetected); Coronavirus NL63 PCR Not Detected (NotDetected); Coronavirus OC43PCR Not Detected (NotDetected); Human Metapneumovirus PCR Not Detected (NotDetected); Influenza A PCR Not Detected (NotDetected); Influenza B PCR Not Detected (NotDetected); Mycoplasma pneumoniae PCR Not Detected (NotDetected); Parainfluenza Virus 1 PCR Not Detected (NotDetected); Parainfluenza Virus 2 PCR Not Detected (NotDetected); Parainfluenza Virus 3 PCR Not Detected (NotDetected); Parainfluenza Virus 4 PCR Not Detected (NotDetected); Respiratory Syncytial VirusPCR Not Detected (NotDetected); Rhinovirus/Enterovirus PCR Not Detected (NotDetected)
[2022-05-11 12:31] LABS: Coronavirus CoV-2 (COVID19)PCR DETECTED (NotDetected)
--- NOTE | 2022-05-11 13:26 | History & Physical Report ---
Date of Service May 11, 2022 Assessment & Plan (1) Acute respiratory failure with hypoxia: Plan: -Admit to med/tele -The patient is currently afebrile, hemodynamically stable, and stable on 2L NC -At this time the patient's acute hypoxic respiratory failure is most likely due to her Covid-19 infection -No leukocytosis, no focal consolidation on CXR to suggest bacterial pna, procal and ESR are in process -The patient is not on anticoagulation outpatient so PE is on the differential but less likely at this time as she is not tachycardic, is without pleuritic chest pain, and hemodynamically stable -Will continue with 6 gm IV dexamethasone daily for a total of 10 days and start daily remdesivir as her liver and renal function are stable -Incentive spirometry, flutter therapy, QID DuoNebs and Robitussin, prn O2 to keep SpO2 at or greater than 95% -Continue with BL SCD's and Sub-Q heparin for DVT PPX (Using heparin as patient appears close to an MALINDA, will avoid lovenox for now, if renal function remains stable could switch to Lovenox) -AM CBC, BMP, Mag, AST, ALT (2) COVID-19: Plan: -See acute hypoxic respiratory failure (3) Hypomagnesemia: Plan: -Noted to be 1.3 today -Likely due to her poor appetite and continued diuretic use -S/P 1gm IV mag in the ED, will give another 1gm on admission -Hold HCTZ for now, monitor am Mag level (4) Controlled type 2 diabetes with neuropathy: Plan: -Hold metformin and glipizide -Monitor BSG ACHS, goal is 110-140 -Start 5 units lantus BID, Correction factor of 50 and carb ratio of 15 -May need to increase her regimen while on Dexamethasone -DM II diet (5) Hypertension: Plan: -Stable -Continue amlodipine and metoprolol -Hold HCTZ and WILSON for now until we know her renal function and electrolytes are stable (6) Degenerative arthritis of lumbar spine: Plan: -Will start with lidocaine patch and tylenol prn Plan The patient was discussed with Dr. Potter at the time of the admission History of Present Illness Chief Complaint: Illness Primary Care Provider: Balbir Lira MD Deisy is an 81 year old female with a PMH significant for DM II, lumbar spine stenosis, COPD, and HTN who presented to the [facility] ED on 05/11/22 with a chief complaint of illness. In the ED the patient was found to be afebrile, hemodynamically stable, but hypoxic at 85% on RA. Labs were significant for a WBC WNL, stable Hgb and platelets, cr of 1.05 (baseline appears to be 0.8), BUN of 27, mag of 1.3 otherwise stable electrolytes, glucose of 157, high sen trop of 4.4, and covid 19 positive on full respiratory biofire panel. Chest xray was read as "No acute abnormalities and in particular no radiographic evidence of pneumonia.". Prior to admission the patient was placed on 2L NC and given an hour long DuoNeb treatment, 10 mg IV dexamethasone, 1L NSS, and 1gm IV magnesium. At the time of the exam the patient was resting in bed in no acute distress with her sitting in the other bed as they were evaluated together. The patient states that she started to develop URI symptoms including congestion, runny nose, a productive cough, sore throat, and SOB. She started to develop symptoms approximately 4 days ago and her started to develop symptoms 2 days ago. She actually brought her to the ED today to be evaluated and then asked to be evaluated herself. She feels somewhat improved compared to arrival but is still feeling generally weak. She denies recent headache, changes in vision, hearing, taste, and smell, chest pain, abd pain, nausea, vomiting, diarrhea, dysuria, hematuria, LE Swelling and recent trauma. When asked, she denies a previous history fo COPD or chronic lung disease. She was previously prescribed a prn albuterol inhaler but has not had to use it in years. Per chart review, I do not see nots from a [employer] and COPD is never addressed in her previous Primary Care notes. There are no previous PFT's in her chart to review as well. We had a long discussion regarding code status, at this time she would NOT want CPR or defibrillation in the event of cardiac arrest. In the event of respiratory failure she would want a trial of intubation but would not want to live on a ventilator. If she cannot make medical decisions herself she would want her to make medical decisions for her. Please refer to Dr. Potter's attestation for any changes in the treatment plan Allergies Allergy/AdvReac Type Severity Reaction Status Date / Time gabapentin AdvReac Unknown Confusion Verified 10/31/21 08:42 morphine AdvReac Unknown Unknown Verified 08/12/21 09:13 Home Medications Medication Instructions Recorded Confirmed Type cholecalciferol (vitamin D3) 25 1,000 units PO DAILY #30 caps 09/07/18 05/11/22 Rx mcg (1,000 unit) capsule cyanocobalamin (vitamin B-12) 100 200 mcg PO BID #30 tabs 09/07/18 05/11/22 History mcg tablet albuterol sulfate 90 mcg/actuation 1 - 2 puffs inhalation Q6H PRN 10/26/18 05/11/22 Rx aerosol inhaler shortness of breath or wheezing #18 grams naproxen sodium 220 mg capsule 220 mg PO BID PRN pain #10 caps 03/15/20 05/11/22 Rx (Aleve) amlodipine 10 mg tablet 10 mg PO DAILY #90 tabs 12/04/21 05/11/22 Rx benazepril 20 mg tablet 20 mg PO DAILY #90 tabs 12/04/21 05/11/22 Rx metformin 1,000 mg tablet 1,000 mg PO BID #180 tabs 12/04/21 05/11/22 Rx hydrochlorothiazide 25 mg tablet See Rx Instructions .Route 01/16/22 05/11/22 Rx .COMPLEX #45 tabs glipizide 5 mg tablet, extended 5 mg PO DAILY #90 tabs 04/25/22 05/11/22 Rx release 24 hr blood sugar diagnostic (OneTouch #100 ea 04/29/22 Rx Verio test strips) metoprolol succinate 100 mg 100 mg PO HS 05/11/22 05/11/22 History tablet,extended release 24 hr Past Med/Surg History Medical History (Updated 05/11/22 @ 15:34 by Erik Hyde MD) Chronic obstructive pulmonary disease Controlled type 2 diabetes with neuropathy Diabetic nephropathy Diabetic peripheral neuropathy associated with type 2 diabetes mellitus Essential hypertriglyceridemia Fall, accidental Hip fracture Internal hemorrhoids Low back pain Osteopenia Seborrheic dermatitis Sensorineural hearing loss (SNHL) of both ears Stress incontinence in female URI (upper respiratory infection) Surgical History History of back surgery History of removal of cyst Hx of tonsillectomy S/P appendectomy Family History Father Emphysema of lung Sister Breast cancer Denies family history of Ovarian cancer Prostate cancer Myocardial infarction Colorectal cancer Social History Smoking Status: Never smoker Second Hand Exposure: Yes; Hx Alcohol Use: No Hx Substance Use: No Preferred Language: Yakut Communication Ability: Effective Carrot Harvester Required: No Beliefs That Will Affect Care: None marital status: Current Living Situation: Spouse current occupational status: retired Other Information That Helps Us Care for You: No Feels Safe at Home: Yes Safety Concerns: Feels Safe At This Time Childhood Exposure to Second-Hand Smoke: Yes Dental Care, Regularly: Yes Physical Activity Frequency: 1-2 Times per Week Seatbelt Use: always Sunscreen Use: Yes Assistive Devices: Glasses, Hearing Aid - Bilateral and Walker Assistive Devices Comment: does not wear hearing aids Review of Systems Review of Systems: Denies current fever, chills, headache, changes in vision, hearing, taste, and smell, chest pain, abdominal pain, nausea, vomiting, diarrhea, hematemesis, melena, dysuria, hematuria, and recent falls. All systems have been reviewed and are otherwise negative. Physical Exam Physical Exam: Physical Exam: General: In no acute distress, stated age, well-nourished, good hygiene, non- toxic appearing HEENT: Normocephalic, atraumatic, no scleral icterus, NC currently in place, pupils around round, symmetrical, and reactive to light, moist mucus membranes, trachea midline, no thyromegaly Chest/Pulm: No respiratory distress, symmetrical chest expansion, expiratory wheezing noted in the BL lower lung elaine Cardiac: RRR, no murmurs noted Abdomen: Negative for ascites and bruising, normoactive bowel sounds, soft, non-tender to palpation throughout Musculoskeletal: Symmetrical and without signs of acute trauma, upper and lower extremities with full ROM, no atrophy, spasticity, or flaccidity Extremities: Radial, dorsalis pedis, and posterior tibial pulses are intact and symmetrical, no edema noted in the BL LE's Skin: Warm, dry, no rashes , lesions, or scars noted Neuro: Alert and oriented to person, place, month, year, and president, no focal defects, no tremors noted Psych: No acute distress, calm and cooperative during the exam Results & Data Results & Data Vital Signs (Past 12 Hours) Vital Signs Temp Pulse Pulse Resp Pulse Ox O2 Del Method O2 Flow Rate 05/11/22 12:31 90 Nasal Cannula 2 05/11/22 12:29 20 85 L Room Air 2 05/11/22 11:53 83 05/11/22 10:47 74 18 96 Room Air 05/11/22 10:13 36.4 C L 76 20 95 Room Air Laboratory Results Abnormal lab results 05/11/22 05/11/22 05/11/22 Range/Units 10:45 10:45 10:45 RBC 5.41 H (4.20-5.40) M/uL Hct 47.2 H (37.0-47.0) % [place] # (Auto) 0.60 H (0.11-0.59) K/uL BUN 27 H (6-23) mg/dl BUN/Creatinine Ratio 25.7 H (10-20) Glucose 157 H (70-99(Fasting)) mg/dl Magnesium 1.3 L (1.7-2.4) mg/dl C-Reactive Protein 3.28 H (0-0.5) mg/dl SARS-CoV-2 (PCR) DETECTED A* (NotDetected) Diagnostic Findings Chest X-Ray 05/11/22 10:26 XR chest 1V portable CLINICAL HISTORY: cough TECHNIQUE: Single frontal radiograph of the chest was obtained. Comparison: Comparison is made to chest radiograph 05/06/2019 FINDINGS: No lines and tubes are seen. The cardiomediastinal silhouette is normal. The lungs are clear. No evidence of pleural effusion or pneumothorax. A hiatal hernia is seen. IMPRESSION: No acute abnormalities and in particular no radiographic evidence of pneumonia. ACT 112: Negative or not required by law. Electronically signed by: Margarito Cordero M.D. 05/11/2022 10:49 AM ECG Additional Comments: Will obtain on admission Code Status & VTE Plan Code Status Conditional; No CPR or defibrillation in the event of cardiac arrest. Would want a trial of intubation of needed VTE Prophylaxis Plan VTE Prophylaxis will be ordered: Yes Supervising Physician Co-Signing Physician Notes I personally saw and examined the patient. I verified all encarnacion points and agree with Juan Coleman PA-C with the following exceptions and/or additions: 81 year old female admission for shortness of breath and cough 4 days ago. also confirmed to have COVID. Unclear history of COPD but duonbs appear to be helping her. O/E A&Ox3, moist mucus membranes, Resp - using accessory muscles, crackles throughout posteriorly, HS RRR, no murmurs, Abdo SNT A/P COVID-19 pneumonia - vaccinated and boosted but never had before. dexamethasone, remdesivir, incentive spirometer, flutter valve T2DM - consult pharmacy for glycemic control in setting of dexamethasone use HTN - ok to continue on ACEi, will continue to hold HCTZ however PG Care Time/CCT Total # of Minutes Spent Total Time Spent with Patient: Total time spent is greater than 50% in coordination of care (as documented) at patient's floor/unit and/or counseling patient: C[place] [address] INT INP/OBS CARE 3/75MIN Patient Type Established Medical Decision Making High Complexity Diagnoses Acute respiratory failure with hypoxia J96.01 COVID-19 U07.1 Hypomagnesemia E83.42 Controlled type 2 diabetes with neuropathy E11.40 Hypertension I10 Degenerative arthritis of lumbar spine M47.816
[2022-05-11 13:53] LABS: C Reactive Protein 3.28 mg/dl (0-0.5)
[2022-05-11] MEDS ORDERED: GLUCOSE 10 TAB/TUBE PO PRN (13:54)
[2022-05-11] MEDS ORDERED: GLUCAGON FOR INJ 1 MG VIAL SQ PRN (13:54)
[2022-05-11] MEDS ORDERED: GLUCOSE 40% GEL 15 GM TUBE PO PRN (13:54)
[2022-05-11] MEDS ORDERED: DEXTROSE 50% 50 ML SYRINGE IV PRN (13:54)
[2022-05-11] MEDS ORDERED: CARBOHYDRATES FOR HYPOGLYCEMIA PO PRN (13:54)
[2022-05-11] MEDS ORDERED: REMDESIVIR 200 MG in SODIUM CHLORIDE 0.9% 210 ML IV ONE (14:30)
[2022-05-11] MEDS ORDERED: MAGNESIUM SULFATE / D5W 1 GM/100 ML BAG IV ONE (18:24)
[2022-05-11] MEDS: ALBUT/IPRATROP 3MG/0.5MG NEB 3 ML VIAL NEB SCH (18:59)
[2022-05-11] MEDS ORDERED: PHARMACY GLYCEMIC MGMT CONSULT PRN (19:07)
[2022-05-11] MEDS: METOPROLOL SUCC 50MG EXT REL TAB PO SCH (20:28)
[2022-05-11] MEDS: guaiFENesin SUGAR FREE 200 MG/10 ML UDC PO SCH (20:28)
[2022-05-11] MEDS: HEPARIN SOD 5,000 UNIT/0.5 ML VIAL SQ SCH (20:28)
[2022-05-11] MEDS: INSULIN ASPART PER UNIT CHARGE SC SCH ×2 (20:46→22:06)
[2022-05-11] MEDS ORDERED: LANTUS PER UNIT CHARGE SQ ONE (21:00)
[2022-05-11] MEDS ORDERED: LANTUS PER UNIT CHARGE SQ SCH (21:00)
[2022-05-12] MEDS: guaiFENesin SUGAR FREE 200 MG/10 ML UDC PO SCH ×5 (00:58→23:43)
[2022-05-12] MEDS: INSULIN ASPART PER UNIT CHARGE SC SCH ×6 (01:15→22:07)
[2022-05-12] MEDS: ACETAMINOPHEN 325 MG TAB PO PRN ×2 (01:37→13:13)
[2022-05-12] MEDS: HEPARIN SOD 5,000 UNIT/0.5 ML VIAL SQ SCH ×3 (06:17→22:06)
[2022-05-12] MEDS: ALBUT/IPRATROP 3MG/0.5MG NEB 3 ML VIAL NEB SCH ×4 (07:29→20:55)
[2022-05-12] MEDS ORDERED: LANTUS PER UNIT CHARGE SQ SCH (09:00)
[2022-05-12 09:46] LABS: Hematocrit (blood only) 42.6 % (37.0-47.0); Hemoglobin 14.3 g/dl (12.0-16.0); Mean Corpuscular Hemoglobin 29.6 pg (25.0-34.0); Mean Corpuscular Hgb Conc 33.6 g/dL (32.0-36.0); Mean Corpuscular Volume 88.2 fL (80.0-100.0); Mean Platelet Volume 11.3 fL (9.4-12.4); Platelet Count 195 K/uL (130-400); RDW Coefficient of Variation 13.4 % (11.5-14.5); Red Blood Count 4.83 M/uL (4.20-5.40); White Blood Count 5.06 K/ul (4.8-10.8)
[2022-05-12] MEDS: dexAMETHasone 6 MG in SYRINGE 0 ML IV SCH (09:57)
[2022-05-12 10:02] LABS: BUN Creatinine Ratio 29.9 (10-20); Calcium 9.1 mg/dl (8.6-10.3); Creatinine Clr Calc Pharmacy 53.9 ml/min; Est GFR (African American) 83.9 ml/min; Est GFR (Non-African American) 72.4 ml/min; Magnesium 1.6 mg/dl (1.7-2.4); Potassium 3.7 mmol/L (3.5-5.1)
[2022-05-12] MEDS: amLODIPine BESYLATE 5 MG TAB PO SCH (10:22)
--- NOTE | 2022-05-12 10:48 | Pharmacy Report ---
Pharmacy Glycemic Short Note 2 - Date of Service May 12, 2022 - Glycemic Short BSG Results (Last 24 hours): 05/11/22 05/11/22 05/11/22 10:45 18:05 20:52 Glucose 157 H POC Glucose 229 H 299 H 05/12/22 05/12/22 05/12/22 00:56 06:15 08:00 Glucose POC Glucose 198 H 93 105 H 05/12/22 09:14 Glucose 199 H POC Glucose OUTPATIENT ANTIDIABETIC REGIMEN: * Metformin 1000mg PO BID * HbA1c: pending ASSESSMENT: * Ms Back is an 81yo diabetic F admitted yesterday with resp failure/hypoxia, COVID-19. * Pt is receiving IV dexamethasone daily, which generally leads to steroid-induc ed hyperglycemia. * Pt was initiated on SQ basal/bolus insulin regimen. BSGs improved significantly overnight. * Will continue to follow and adjust regimen as indicated. PLAN FOR INPATIENT GLYCEMIC CONTROL: * Hold outpatient oral diabetes medications * Basal insulin * Lantus 20 units SQ given last evening * Lantus 10 units SQ daily, beginning this morning * Bolus insulin * NovoLog per scale ACHS or Q6hrs while NPO * Goal Range: Low 110 mg/dL - High 140 mg/dL * Correction Factor: 30 mg/dL/unit * Nutritional / Prandial insulin per carb ratio of 1 unit per 8 grams CHO consumed
[2022-05-12 10:59] LABS: Estimated Average Glucose 146 mg/dl; Hemoglobin A1C 6.7 % (4.5-5.6)
[2022-05-12] MEDS: REMDESIVIR 100 MG in SODIUM CHLORIDE 0.9% 230 ML IV SCH (13:00)
[2022-05-12] MEDS: ENALAPRIL MALEATE 10 MG TAB PO SCH (13:03)
--- NOTE | 2022-05-12 14:22 | Hospitalist Progress Note ---
Date of Service May 12, 2022 Assessment & Plan (1) Acute respiratory failure with hypoxia: Plan: -The patient is currently afebrile, hemodynamically stable Initially was needing 2 L of oxygen, now off of oxygen -At this time the patient's acute hypoxic respiratory failure is most likely due to her Covid-19 infection -No leukocytosis, no focal consolidation on CXR to suggest bacterial pna, procal and ESR are negative as well -Will continue with 6 gm IV dexamethasone daily for a total of 10 days and remdesivir -Incentive spirometry, flutter therapy, QID DuoNebs and Robitussin, prn O2 to keep SpO2 at or greater than 95% -Continue with BL SCD's and Sub-Q heparin for DVT PPX -AM CBC, BMP, Mag, AST, ALT May consider a two-step test tomorrow for discharge soon (2) COVID-19: Plan: -See acute hypoxic respiratory failure (3) Hypomagnesemia: Plan: -Improved from 1.3-1.6 today -Likely due to her poor appetite and continued diuretic use -Will replete magnesium -Hold HCTZ for now (4) Controlled type 2 diabetes with neuropathy: Plan: -Hold metformin and glipizide -Monitor BSG ACHS, goal is 110-140 -Start 5 units lantus BID, Correction factor of 50 and carb ratio of 15 -May need to increase her regimen while on Dexamethasone -DM II diet (5) Hypertension: Plan: -Stable -Continue amlodipine and metoprolol -Hold HCTZ and WILSON for now until we know her renal function and electrolytes are stable (6) Degenerative arthritis of lumbar spine: Plan: -Will start with lidocaine patch and tylenol prn Plan May consider checking a two-step test tomorrow for oxygen needs May consider discharge tomorrow Admission and Anticipated Discharge Date Admission Date: May 11, 2022 Subjective Patient feels better overall. Now off of oxygen. Does not feel short of breath. No chest pain. Review of Systems Review of Systems: All systems reviewed & are unremarkable except as noted in Subjective Physical Exam Physical Exam: General: Awake, conversant Heart: S1, S2/regular rate and rhythm, no murmur rubs or gallops Lungs: Clear to auscultation bilaterally. Normal effort Abdomen: Soft/nontender/nondistended. No hepatosplenomegaly Extremities: No clubbing/cyanosis. No edema Behavior: Appropriate, cooperative Results & Data Results & Data Vital Signs (Past 12 Hours) Vital Signs Temp Pulse Pulse Resp BP Pulse Ox O2 Del Method 05/12/22 12:09 77 18 96 Room Air 05/12/22 11:00 36.7 C 70 18 130/74 95 Room Air 05/12/22 08:07 36.6 C 69 19 127/73 92 Room Air 05/12/22 07:29 78 16 95 Room Air 05/12/22 07:21 65 05/12/22 02:48 36.9 C 61 16 144/71 H 92 Room Air Laboratory Results Abnormal lab results 05/11/22 05/11/22 05/12/22 Range/Units 18:05 20:52 00:56 BUN/Creatinine Ratio (10-20) Glucose (70-99(Fasting)) mg/dl POC Glucose 229 H 299 H 198 H (70-99) mg/dl Hemoglobin A1c (4.5-5.6) % Magnesium (1.7-2.4) mg/dl 05/12/22 05/12/22 05/12/22 Range/Units 08:00 09:14 09:14 BUN/Creatinine Ratio 29.9 H (10-20) Glucose 199 H (70-99(Fasting)) mg/dl POC Glucose 105 H (70-99) mg/dl Hemoglobin A1c 6.7 H (4.5-5.6) % Magnesium 1.6 L (1.7-2.4) mg/dl 05/12/22 Range/Units 11:52 BUN/Creatinine Ratio (10-20) Glucose (70-99(Fasting)) mg/dl POC Glucose 144 H (70-99) mg/dl Hemoglobin A1c (4.5-5.6) % Magnesium (1.7-2.4) mg/dl PG Care Time/CCT Total # of Minutes Spent Total Time Spent with Patient: Total time spent is greater than 50% in coordination of care (as documented) at patient's floor/unit and/or counseling patient: Coding Level of Care Code 66001 SUB INP/OBS CARE 2/35MIN Diagnoses Acute respiratory failure with hypoxia J96.01 COVID-19 U07.1 Hypomagnesemia E83.42 Controlled type 2 diabetes with neuropathy E11.40 Hypertension I10 Degenerative arthritis of lumbar spine M47.816
[2022-05-12] MEDS: MAGNESIUM SULFATE / D5W 1 GM/100 ML BAG IV SCH ×2 (15:38→17:20)
[2022-05-12] MEDS: METOPROLOL SUCC 50MG EXT REL TAB PO SCH (22:06)
[2022-05-13] MEDS: HEPARIN SOD 5,000 UNIT/0.5 ML VIAL SQ SCH ×3 (05:49→20:28)
[2022-05-13] MEDS: guaiFENesin SUGAR FREE 200 MG/10 ML UDC PO SCH ×2 (05:50→12:41)
[2022-05-13 06:12] LABS: Hematocrit (blood only) 41.2 % (37.0-47.0); Hemoglobin 14.1 g/dl (12.0-16.0); Mean Corpuscular Hemoglobin 29.5 pg (25.0-34.0); Mean Corpuscular Hgb Conc 34.2 g/dL (32.0-36.0); Mean Corpuscular Volume 86.2 fL (80.0-100.0); Mean Platelet Volume 10.9 fL (9.4-12.4); Platelet Count 194 K/uL (130-400); RDW Coefficient of Variation 13.3 % (11.5-14.5); RDW Standard Deviation 41.4 fL (36.4-46.3); Red Blood Count 4.78 M/uL (4.20-5.40); White Blood Count 6.53 K/ul (4.8-10.8)
[2022-05-13 06:38] LABS: BUN Creatinine Ratio 31.3 (10-20); Calcium 9.1 mg/dl (8.6-10.3); Creatinine Clr Calc Pharmacy 49.8 ml/min; Est GFR (African American) 76.6 ml/min; Est GFR (Non-African American) 66.1 ml/min; Magnesium 1.8 mg/dl (1.7-2.4); Potassium 3.9 mmol/L (3.5-5.1)
[2022-05-13] MEDS ORDERED: LANTUS PER UNIT CHARGE SQ ONE (07:44)
[2022-05-13] MEDS ORDERED: INSULIN ASPART PER UNIT CHARGE SC ONE (07:44)
[2022-05-13] MEDS: ALBUT/IPRATROP 3MG/0.5MG NEB 3 ML VIAL NEB SCH ×4 (07:53→19:21)
[2022-05-13] MEDS: ENALAPRIL MALEATE 10 MG TAB PO SCH (08:25)
[2022-05-13] MEDS: amLODIPine BESYLATE 5 MG TAB PO SCH (08:25)
[2022-05-13] MEDS ORDERED: LANTUS PER UNIT CHARGE SQ SCH (09:00)
[2022-05-13] MEDS ORDERED: NovoLIN-N (NPH) PER UNIT CHARGE SQ SCH (09:00)
[2022-05-13] MEDS: INSULIN ASPART PER UNIT CHARGE SC SCH ×4 (09:07→21:35)
[2022-05-13] MEDS: dexAMETHasone 6 MG in SYRINGE 0 ML IV SCH (09:41)
--- NOTE | 2022-05-13 10:52 | Pharmacy Report ---
Pharmacy Glycemic Short Note 2 - Date of Service May 13, 2022 - Glycemic Short BSG Results (Last 24 hours): 05/12/22 05/12/22 05/12/22 11:52 17:04 21:42 Glucose POC Glucose 144 H 231 H 218 H 05/13/22 05/13/22 05:27 08:23 Glucose 81 POC Glucose 86 OUTPATIENT ANTIDIABETIC REGIMEN: * Metformin 1000mg PO BID * HbA1c: 6.7% ASSESSMENT: 05/13: * Deisy received a total of 29 units of insulin yesterday (10 units Lantus + 19 units Novolog). She remains on dexamethasone 6mg IV q24h. * Fasting BSG is trending down. Patient may not require 24 hour long acting insulin based on home regimen and A1c. Will transition to NPH to avoid fasting hypoglycemia and better target postprandial BSG elevation at dinner and HS. May need to loosen carb coverage with NPH on board. Will monitor closely. 05/12: * Ms Back is an 81yo diabetic F admitted yesterday with resp failure/hypoxia, COVID-19. * Pt is receiving IV dexamethasone daily, which generally leads to steroid- induced hyperglycemia. * Pt was initiated on SQ basal/bolus insulin regimen. BSGs improved significantly overnight. * Will continue to follow and adjust regimen as indicated. PLAN FOR INPATIENT GLYCEMIC CONTROL: * Hold outpatient oral diabetes medications * Basal insulin * NPH 10 units SQ with breakfast * Reassess dose on 05/14 AM * Bolus insulin * NovoLog per scale ACHS or Q6hrs while NPO * Goal Range: Low 110 mg/dL - High 140 mg/dL * Correction Factor: 30 mg/dL/unit * Nutritional / Prandial insulin per carb ratio of 1 unit per 8 grams CHO consumed
[2022-05-13] MEDS: REMDESIVIR 100 MG in SODIUM CHLORIDE 0.9% 230 ML IV SCH (12:41)
[2022-05-13] MEDS ORDERED: BENZONATATE 100 MG CAPSULE PO ONE (14:51)
--- NOTE | 2022-05-13 14:53 | Hospitalist Progress Note ---
Date of Service May 13, 2022 Assessment & Plan (1) Acute respiratory failure with hypoxia: Plan: 2nd to COVID-19 infection. Improving, now off O2, but still with severe respiratory symptoms. (2) COVID-19: Plan: no pneumonia on recent cxr; however, had O2 requirement and has extensive adventitious sounds (wheezing, cough, etc). cont dexamethasone 6mg IV daily, day #3 today. cont Remdesivir - day #3 today. cont pulmonary toilet. add tessalon pearles 100mg TID scheduled. cont albuterol nebs qid. cont ICS/LABA daily. add robitussin ac q6h prn. (3) Hypomagnesemia: Plan: repleted resolved likely 2nd to HCTZ usage at home (4) Controlled type 2 diabetes with neuropathy: Plan: Hold metformin and glipizide a1c 6.7% cont basal-bolus insulin with novolog + NPH appreciate pharmacy assistance with such (5) Hypertension: Plan: Continue amlodipine and metoprolol Continue WILSON HCTZ still on hold but resume if needed (6) Degenerative arthritis of lumbar spine: (7) DVT prophylaxis: Plan: heparin 5000 TID Plan sons updated at bedside Admission and Anticipated Discharge Date Admission Date: May 11, 2022 Subjective patient continues with severe cough mildly productive only continues with wheezing mild ELENA no dyspnea at rest 2 sons at bedside they mention that she and multiple family members about 1 month ago had RSV patient denies h/o COPD, but tends to get respiratory infections each winter son mentions "she always has a cough" eating a little better energy slightly better sick at home with COVID Review of Systems Review of Systems: gen - no fevers/chills cv - no chest pain pulm - cough/congestion/wheezing/etc GI - no vomiting or abd pain Physical Exam Physical Exam: gen - severe cough, no distress, pleasant mouth - MM dry neck - no JVD heart - RRR, s1 s2 lungs - diffuse wheezing all lung segments, no rales; airation fair; no increased work of breathing abd - soft NT ND BS+ ext - no edema, pulses 2+ b/l Results & Data Results & Data Vital Signs (Past 12 Hours) Vital Signs Temp Pulse Resp BP Pulse Ox O2 Del Method 05/13/22 11:50 68 20 94 Room Air 05/13/22 10:21 Room Air 05/13/22 07:53 57 L 18 94 Room Air 05/13/22 05:47 36.5 C 63 15 142/77 H 96 Room Air Laboratory Results Laboratory Results - last 48 hr 05/13/22 05/13/22 05/13/22 05:27 05:27 08:23 WBC 6.53 RBC 4.78 Hgb 14.1 Hct 41.2 MCV 86.2 MCH 29.5 MCHC 34.2 RDW Std Deviation 41.4 RDW Coeff of Latasha 13.3 Plt Count 194 MPV 10.9 Sodium 140 Potassium 3.9 Chloride 105 Carbon Dioxide 29 Anion Gap 6 BUN 26 H Creatinine 0.83 Est Cr Clr Drug Dosing 49.8 Est GFR ( Amer) 76.6 Est GFR (Non-Af Amer) 66.1 BUN/Creatinine Ratio 31.3 H Glucose 81 POC Glucose 86 Calcium 9.1 Magnesium 1.8 AST 21 ALT 11 05/13/22 05/13/22 05/13/22 12:15 17:22 20:11 WBC RBC Hgb Hct MCV MCH MCHC RDW Std Deviation RDW Coeff of Latasha Plt Count MPV Sodium Potassium Chloride Carbon Dioxide Anion Gap BUN Creatinine Est Cr Clr Drug Dosing Est GFR ( Amer) Est GFR (Non-Af Amer) BUN/Creatinine Ratio Glucose POC Glucose 83 190 H 195 H Calcium Magnesium AST ALT PG Care Time/CCT Total # of Minutes Spent Total Time Spent with Patient: Total time spent is greater than 50% in coordination of care (as documented) at patient's floor/unit and/or counseling patient: Coding Level of Care Code 06008 SUB INP/OBS CARE 2/35MIN Diagnoses Acute respiratory failure with hypoxia J96.01 COVID-19 U07.1 Hypomagnesemia E83.42 Controlled type 2 diabetes with neuropathy E11.40 Hypertension I10 Degenerative arthritis of lumbar spine M47.816 DVT prophylaxis Z29.9
[2022-05-13] MEDS: BENZONATATE 100 MG CAPSULE PO SCH (20:28)
[2022-05-13] MEDS: METOPROLOL SUCC 50MG EXT REL TAB PO SCH (20:28)
[2022-05-13] MEDS: guaiFENesin/CODEINE 100MG/10MG 5ML UDC PO PRN (21:46)
[2022-05-14] MEDS: HEPARIN SOD 5,000 UNIT/0.5 ML VIAL SQ SCH ×3 (05:28→21:05)
[2022-05-14] MEDS: ALBUT/IPRATROP 3MG/0.5MG NEB 3 ML VIAL NEB SCH ×4 (07:10→19:02)
[2022-05-14] MEDS: dexAMETHasone 6 MG in SYRINGE 0 ML IV SCH (08:42)
[2022-05-14] MEDS: ENALAPRIL MALEATE 10 MG TAB PO SCH (08:43)
[2022-05-14] MEDS: BENZONATATE 100 MG CAPSULE PO SCH ×3 (08:43→21:05)
[2022-05-14] MEDS: amLODIPine BESYLATE 5 MG TAB PO SCH (08:43)
[2022-05-14] MEDS: FLUTICASONE/VILANTEROL 100/25MCG 14 PUFFS/INHALER INH SCH (08:43)
[2022-05-14 09:05] LABS: Calcium 9.4 mg/dl (8.6-10.3); Potassium 3.9 mmol/L (3.5-5.1)
[2022-05-14 09:11] LABS: BUN Creatinine Ratio 25.8 (10-20); Creatinine Clr Calc Pharmacy 44.5 ml/min; Est GFR (African American) 66.8 ml/min; Est GFR (Non-African American) 57.6 ml/min
[2022-05-14] MEDS: INSULIN ASPART PER UNIT CHARGE SC SCH ×3 (09:13→21:20)
[2022-05-14] MEDS ORDERED: NovoLIN-N (NPH) PER UNIT CHARGE SQ ONE (09:15)
[2022-05-14] MEDS ORDERED: INSULIN ASPART PER UNIT CHARGE SC SCH ×2 (09:30→11:30)
--- NOTE | 2022-05-14 10:57 | Pharmacy Report ---
Pharmacy Glycemic Short Note 2 - Date of Service May 14, 2022 - Glycemic Short BSG Results (Last 24 hours): 05/13/22 05/13/22 05/13/22 12:15 17:22 20:11 Glucose POC Glucose 83 190 H 195 H 05/14/22 05/14/22 07:12 08:30 Glucose 89 POC Glucose 91 OUTPATIENT ANTIDIABETIC REGIMEN: * Metformin 1000mg PO BID * HbA1c: 6.7% ASSESSMENT: 05/14 * Total of 26 units of insulin yesterday (10 units Lantus). She remains on dexamethasone 6mg IV q24h * BSG 81 - 86 mg/dL between breakfast and Lunch. Loosened CR to 10 g/unit for both times and will trend BSG. Otherwise continue previous plan 05/13: * Deisy received a total of 29 units of insulin yesterday (10 units Lantus + 19 units Novolog). She remains on dexamethasone 6mg IV q24h. * Fasting BSG is trending down. Patient may not require 24 hour long acting insulin based on home regimen and A1c. Will transition to NPH to avoid fasting hypoglycemia and better target postprandial BSG elevation at dinner and HS. May need to loosen carb coverage with NPH on board. Will monitor closely. 05/12: * Ms Back is an 81yo diabetic F admitted yesterday with resp failure/hypoxia, COVID-19. * Pt is receiving IV dexamethasone daily, which generally leads to steroid- induced hyperglycemia. * Pt was initiated on SQ basal/bolus insulin regimen. BSGs improved significantly overnight. * Will continue to follow and adjust regimen as indicated. PLAN FOR INPATIENT GLYCEMIC CONTROL: * Hold outpatient oral diabetes medications * Basal insulin * NPH 10 units SQ with breakfast * Reassess dose on 05/14 AM * Bolus insulin * NovoLog per scale ACHS or Q6hrs while NPO * Goal Range: Low 110 mg/dL - High 140 mg/dL * Correction Factor: 30 mg/dL/unit * Nutritional / Prandial insulin per carb ratio of 1 unit per 8 grams CHO consumed
[2022-05-14] MEDS: REMDESIVIR 100 MG in SODIUM CHLORIDE 0.9% 230 ML IV SCH (13:30)
--- NOTE | 2022-05-14 17:49 | XRay Report ---
XR chest 1V portable HISTORY: 81 years-old Female covid infection, severe cough acute cough COMPARISON: Chest radiograph 05/11/2022 TECHNIQUE: AP view the chest FINDINGS: Cardiac silhouette is enlarged. Atherosclerosis of the aorta. Hiatal hernia. No pneumothorax, pleural effusion, airspace consolidation or pulmonary edema. Degenerative changes of the shoulders and spine . IMPRESSION: 1. Cardiomegaly without acute process. 2. Hiatal hernia. ACT 112: Negative or not required by law. The above report was generated using voice recognition software. It may contain grammatical, syntax o r spelling errors. Electronically signed by: Robin Gamino M.D. 05/14/2022 5:48 PM
[2022-05-14] MEDS: FIRST - Mouthwash BLM 119 ML PO SCH ×2 (17:56→21:06)
[2022-05-14] MEDS: dexAMETHasone 4 MG in SYRINGE 0 ML IV SCH (21:05)
[2022-05-14] MEDS: METOPROLOL SUCC 50MG EXT REL TAB PO SCH (21:05)
[2022-05-14] MEDS: guaiFENesin/CODEINE 100MG/10MG 5ML UDC PO PRN (21:05)
--- NOTE | 2022-05-14 22:03 | Hospitalist Progress Note ---
Date of Service May 14, 2022 Assessment & Plan (1) Acute respiratory failure with hypoxia: Plan: 2nd to COVID-19 infection. Improving, remains off of O2, but still with severe respiratory symptoms - see below. (2) COVID-19: Plan: no pneumonia on recent cxr; however, had O2 requirement and has ongoing extensive adventitious sounds (wheezing, cough, etc). plan to repeat a cxr today. obtain sputum cx - r/o bacterial superinfection. cont dexamethasone - day #4 of such - increase to 4mg BID. cont Remdesivir - day #4 today. cont pulmonary toilet. cont tessalon pearles - increase to 200mg TID scheduled. cont albuterol nebs qid. cont ICS/LABA daily. cont robitussin ac q6h prn. may need 2-step prior to d/c. (3) Hypomagnesemia: Plan: repleted resolved likely 2nd to HCTZ usage at home (4) Controlled type 2 diabetes with neuropathy: Plan: Hold metformin and glipizide a1c 6.7% cont basal-bolus insulin with novolog + NPH appreciate pharmacy assistance with such (5) Hypertension: Plan: Continue amlodipine and metoprolol Continue WILSON BPs climbing - perhaps with steroid usage - resume HCTZ in am tomorrow. (6) Degenerative arthritis of lumbar spine: (7) DVT prophylaxis: Plan: heparin 5000 TID Plan sons updated at bedside yesterday slowly progressing Admission and Anticipated Discharge Date Admission Date: May 11, 2022 Subjective patient continues with severe cough mildly productive - white/clear sputum continues with mild ELENA did sleep a little last pm as she took codeine based cough syrup (this helped) eating better energy is improved no new symptoms otherwise Review of Systems Review of Systems: gen - no fevers or chills cv - no chest pain pulm - no dyspnea at rest GI - no N/V; hasn't moved bowels yet HENT - throat remains sore Physical Exam Physical Exam: gen - severe cough like yesterday, no distress, pleasant mouth - MM dry; throat slightly erythematous; no thrush plaques neck - no JVD heart - RRR, s1 s2, no murmur lungs - still with diffuse wheezing all lung segments, no rales; airation improving; no increased work of breathing abd - soft NT ND BS+ ext - no edema, pulses 2+ b/l Results & Data Results & Data Vital Signs (Past 12 Hours) Vital Signs Temp Pulse Resp BP Pulse Ox O2 Del Method 05/14/22 21:03 36.6 C 62 18 150/71 H 95 Room Air 05/14/22 19:03 74 18 98 Room Air 05/14/22 17:30 36.7 C 73 16 116/71 95 Room Air 05/14/22 15:38 64 20 95 Room Air 05/14/22 11:08 62 16 96 Room Air Laboratory Results Laboratory Results - last 24 hr 05/14/22 05/14/22 05/14/22 07:12 08:30 12:29 Sodium 141 Potassium 3.9 Chloride 103 Carbon Dioxide 28 Anion Gap 10 BUN 24 H Creatinine 0.93 Est Cr Clr Drug Dosing 44.5 Est GFR ( Amer) 66.8 Est GFR (Non-Af Amer) 57.6 BUN/Creatinine Ratio 25.8 H Glucose 89 POC Glucose 91 153 H Calcium 9.4 AST 23 ALT 16 05/14/22 05/14/22 17:28 21:00 Sodium Potassium Chloride Carbon Dioxide Anion Gap BUN Creatinine Est Cr Clr Drug Dosing Est GFR ( Amer) Est GFR (Non-Af Amer) BUN/Creatinine Ratio Glucose POC Glucose 247 H 200 H Calcium AST ALT PG Care Time/CCT Total # of Minutes Spent Total Time Spent with Patient: Total time spent is greater than 50% in coordination of care (as documented) at patient's floor/unit and/or counseling patient: Coding Level of Care Code 27048 SUB INP/OBS CARE 2/35MIN Diagnoses Acute respiratory failure with hypoxia J96.01 COVID-19 U07.1 Hypomagnesemia E83.42 Controlled type 2 diabetes with neuropathy E11.40 Hypertension I10 Degenerative arthritis of lumbar spine M47.816 DVT prophylaxis Z29.9
[2022-05-15] MEDS: HEPARIN SOD 5,000 UNIT/0.5 ML VIAL SQ SCH ×3 (05:43→22:01)
[2022-05-15 06:23] LABS: Alanine Aminotransferase 15 U/L (7-52); Aspartate Aminotransferase 17 U/L (13-39)
[2022-05-15 06:59] LABS: Hematocrit (blood only) 45.3 % (37.0-47.0); Hemoglobin 15.6 g/dl (12.0-16.0); Mean Corpuscular Hemoglobin 29.5 pg (25.0-34.0); Mean Corpuscular Hgb Conc 34.4 g/dL (32.0-36.0); Mean Corpuscular Volume 85.8 fL (80.0-100.0); Mean Platelet Volume 11.3 fL (9.4-12.4); Platelet Count 195 K/uL (130-400); RDW Coefficient of Variation 13.4 % (11.5-14.5); Red Blood Count 5.28 M/uL (4.20-5.40); White Blood Count 5.95 K/ul (4.8-10.8)
[2022-05-15] MEDS: ALBUT/IPRATROP 3MG/0.5MG NEB 3 ML VIAL NEB SCH ×4 (07:20→19:29)
[2022-05-15 07:30] LABS: C Reactive Protein < 0.50 mg/dl (0-0.5); Creatinine Clr Calc Pharmacy 51.8 ml/min; Est GFR (African American) 80.1 ml/min; Est GFR (Non-African American) 69.1 ml/min
[2022-05-15] MEDS ORDERED: INSULIN ASPART PER UNIT CHARGE SC SCH ×4 (07:30→21:00)
[2022-05-15] MEDS ORDERED: NovoLIN-N (NPH) PER UNIT CHARGE SQ SCH (09:00)
[2022-05-15] MEDS: BENZONATATE 100 MG CAPSULE PO SCH ×3 (09:32→21:54)
[2022-05-15] MEDS: FLUTICASONE/VILANTEROL 100/25MCG 14 PUFFS/INHALER INH SCH (09:34)
[2022-05-15] MEDS: FIRST - Mouthwash BLM 119 ML PO SCH ×4 (09:34→21:54)
[2022-05-15] MEDS: INSULIN ASPART PER UNIT CHARGE SC SCH ×3 (09:39→18:08)
[2022-05-15] MEDS ORDERED: bisacodyL 5 MG TABEC PO ONE (09:48)
[2022-05-15] MEDS: ENALAPRIL MALEATE 10 MG TAB PO SCH (09:50)
[2022-05-15] MEDS: amLODIPine BESYLATE 5 MG TAB PO SCH (09:51)
[2022-05-15] MEDS: dexAMETHasone 4 MG in SYRINGE 0 ML IV SCH ×2 (09:52→22:00)
--- NOTE | 2022-05-15 10:17 | Pharmacy Report ---
Pharmacy Glycemic Short Note 2 - Date of Service May 15, 2022 - Glycemic Short BSG Results (Last 24 hours): 05/14/22 05/14/22 05/14/22 12:29 17:28 21:00 POC Glucose 153 H 247 H 200 H 05/15/22 08:16 POC Glucose 133 H OUTPATIENT ANTIDIABETIC REGIMEN: * Metformin 1000mg PO BID * HbA1c: 6.7% ASSESSMENT: 05/15 * Total of 28 units of insulin yesterday (of which NPH was 10 units). * Yesterday, BSG was 247 and 200 mg/dL for dinnertime and bedtime respectively. * FBSG was 133 mg/dL this morning. Her BSG seem to be low in the mornings but rise over the day. Tightened CF to 25 mg/dL/unit and CR to 8 g/unit for breakfast, lunch and dinnertime and left CF loose (30 mg/dL/unit) at bedtime. * Dexamethasone changed to 4mg IV BID. Will give NPH 10 units BID with dexamethasone 05/14 * Total of 26 units of insulin yesterday (10 units Lantus). She remains on dexamethasone 6mg IV q24h * BSG 81 - 86 mg/dL between breakfast and Lunch. Loosened CR to 10 g/unit for both times and will trend BSG. Otherwise continue previous plan 05/13: * Deisy received a total of 29 units of insulin yesterday (10 units Lantus + 19 units Novolog). She remains on dexamethasone 6mg IV q24h. * Fasting BSG is trending down. Patient may not require 24 hour long acting insulin based on home regimen and A1c. Will transition to NPH to avoid fasting hypoglycemia and better target postprandial BSG elevation at dinner and HS. May need to loosen carb coverage with NPH on board. Will monitor closely. 05/12: * Ms Back is an 81yo diabetic F admitted yesterday with resp failure/hypoxia, COVID-19. * Pt is receiving IV dexamethasone daily, which generally leads to steroid- induced hyperglycemia. * Pt was initiated on SQ basal/bolus insulin regimen. BSGs improved significantly overnight. * Will continue to follow and adjust regimen as indicated. PLAN FOR INPATIENT GLYCEMIC CONTROL: * Hold outpatient oral diabetes medications * Basal insulin * NPH 10 units SQ with breakfast * Reassess dose on 05/14 AM * Bolus insulin * NovoLog per scale ACHS or Q6hrs while NPO * Goal Range: Low 110 mg/dL - High 140 mg/dL * Correction Factor: 30 mg/dL/unit * Nutritional / Prandial insulin per carb ratio of 1 unit per 8 grams CHO consumed
[2022-05-15] MEDS: hydroCHLOROthiazide 25 MG TAB PO SCH (10:31)
[2022-05-15] MEDS: POLYETHYLENE (MIRALAX) 17 GM PACK PO SCH (10:31)
[2022-05-15] MEDS: REMDESIVIR 100 MG in SODIUM CHLORIDE 0.9% 230 ML IV SCH (13:06)
[2022-05-15] MEDS: INSULIN HUMAN NPH SC SCH (18:19)
[2022-05-15] MEDS ORDERED: INSULIN HUMAN NPH SC SCH (21:00)
--- NOTE | 2022-05-15 21:36 | Hospitalist Progress Note ---
Date of Service May 15, 2022 Assessment & Plan (1) Acute respiratory failure with hypoxia: Plan: 2nd to COVID-19 infection. resolved. [place] O2 off. 2-step O2 test for ambulatory oxygen -- passed the 2-step, home O2 NOT needed. (2) COVID-19: Plan: IMPROVING. final day of Remdesivir. day #5 of dexa - cont 4mg BID, then wean starting tomorrow. no pneumonia on cxr x 2. cont pulmonary toilet. cont tessalon pearles 200mg TID scheduled. cont albuterol nebs qid. cont ICS/LABA daily. cont robitussin ac q6h prn. passed 2-step today. f/u with pulmonary post-d/c - [facility] - for suspected COPD. (3) Hypomagnesemia: Plan: repleted resolved likely 2nd to HCTZ usage at home (4) Controlled type 2 diabetes with neuropathy: Plan: Hold metformin and glipizide a1c 6.7% cont basal-bolus insulin with novolog + NPH appreciate pharmacy assistance with such resume PO meds at d/c (5) Hypertension: Plan: Continue amlodipine and metoprolol Continue WILSON resume HCTZ at 12.5mg daily today (6) Degenerative arthritis of lumbar spine: (7) DVT prophylaxis: Plan: heparin 5000 TID Plan updated pt's by phone today told him I was confident that she would be able to d/c home tomorrow Admission and Anticipated Discharge Date Admission Date: May 11, 2022 Subjective "I feel much better" cough/congestion/wheezing all improved no dyspnea with exertion eating well fatigue improved wants to go home Review of Systems Review of Systems: gen - no fevers or chills cv - no cp, no orthopnea GI - finally had BM; no n/V Physical Exam Physical Exam: gen - looks good today, minimal cough mouth - MMM neck - no JVD heart - RRR, s1 s2, no murmur lungs - still with wheezing all lung segments but much better today; no rales; airation good; no increased work of breathing abd - soft NT ND BS+ ext - no edema, pulses 2+ b/l psych - a/o x 3; normal affect Results & Data Results & Data Vital Signs (Past 12 Hours) Vital Signs Temp Pulse Pulse Pulse Pulse Resp Resp 05/15/22 21:12 36.6 C 73 16 05/15/22 19:29 72 18 05/15/22 15:48 81 16 05/15/22 15:44 89 85 80 16 05/15/22 11:01 72 16 Resp Resp BP Pulse Ox Pulse Ox Pulse Ox Pulse Ox 05/15/22 21:12 123/73 94 05/15/22 19:29 97 05/15/22 15:48 95 05/15/22 15:44 16 16 95 94 95 05/15/22 11:01 98 O2 Del Method 05/15/22 21:12 Room Air 05/15/22 19:29 Room Air 05/15/22 15:48 Room Air 05/15/22 15:44 05/15/22 11:01 Room Air Laboratory Results Laboratory Results - last 24 hr 05/15/22 05/15/22 05/15/22 05:22 05:22 05:25 WBC 5.95 RBC 5.28 Hgb 15.6 Hct 45.3 MCV 85.8 MCH 29.5 MCHC 34.4 RDW Std Deviation 42.0 RDW Coeff of Latasha 13.4 Plt Count 195 MPV 11.3 Creatinine 0.80 Est Cr Clr Drug Dosing 51.8 Est GFR ( Amer) 80.1 Est GFR (Non-Af Amer) 69.1 POC Glucose AST 17 ALT 15 C-Reactive Protein < 0.50 05/15/22 05/15/22 05/15/22 08:16 11:49 17:02 WBC RBC Hgb Hct MCV MCH MCHC RDW Std Deviation RDW Coeff of Latasha Plt Count MPV Creatinine Est Cr Clr Drug Dosing Est GFR ( Amer) Est GFR (Non-Af Amer) POC Glucose 133 H 192 H 71 AST ALT C-Reactive Protein 05/15/22 21:10 WBC RBC Hgb Hct MCV MCH MCHC RDW Std Deviation RDW Coeff of Latasha Plt Count MPV Creatinine Est Cr Clr Drug Dosing Est GFR ( Amer) Est GFR (Non-Af Amer) POC Glucose 95 AST ALT C-Reactive Protein PG Care Time/CCT Total # of Minutes Spent Total Time Spent with Patient: Total time spent is greater than 50% in coordination of care (as documented) at patient's floor/unit and/or counseling patient: Coding Level of Care Code 27397 SUB INP/OBS CARE 235MIN Diagnoses Acute respiratory failure with hypoxia J96.01 COVID-19 U07.1 Hypomagnesemia E83.42 Controlled type 2 diabetes with neuropathy E11.40 Hypertension I10 Degenerative arthritis of lumbar spine M47.816 DVT prophylaxis Z29.9
[2022-05-15] MEDS: METOPROLOL SUCC 50MG EXT REL TAB PO SCH (22:00)
[2022-05-16] MEDS: HEPARIN SOD 5,000 UNIT/0.5 ML VIAL SQ SCH ×3 (06:38→21:12)
[2022-05-16] MEDS: ALBUT/IPRATROP 3MG/0.5MG NEB 3 ML VIAL NEB SCH ×4 (07:33→19:07)
[2022-05-16] MEDS: amLODIPine BESYLATE 5 MG TAB PO SCH (09:03)
[2022-05-16] MEDS: ENALAPRIL MALEATE 10 MG TAB PO SCH (09:03)
[2022-05-16] MEDS: BENZONATATE 100 MG CAPSULE PO SCH ×3 (09:03→21:10)
[2022-05-16] MEDS: hydroCHLOROthiazide 25 MG TAB PO SCH (09:03)
[2022-05-16] MEDS: FLUTICASONE/VILANTEROL 100/25MCG 14 PUFFS/INHALER INH SCH (09:04)
[2022-05-16] MEDS: dexAMETHasone 4 MG in SYRINGE 0 ML IV SCH ×2 (09:04→21:10)
[2022-05-16] MEDS: FIRST - Mouthwash BLM 119 ML PO SCH ×4 (09:05→21:11)
[2022-05-16] MEDS: POLYETHYLENE (MIRALAX) 17 GM PACK PO SCH (09:06)
[2022-05-16] MEDS: INSULIN ASPART PER UNIT CHARGE SC SCH ×4 (09:18→21:07)
[2022-05-16] MEDS: INSULIN HUMAN NPH SC SCH ×3 (09:18→17:53)
[2022-05-16 10:03] LABS: BUN Creatinine Ratio 27.3 (10-20); Calcium 9.3 mg/dl (8.6-10.3); Est GFR (African American) 61.9 ml/min; Est GFR (Non-African American) 53.4 ml/min; Potassium 3.9 mmol/L (3.5-5.1)
[2022-05-16] MEDS ORDERED: dexAMETHasone 4 MG in SYRINGE 0 ML IV SCH (13:51)
[2022-05-16] MEDS ORDERED: SODIUM CHLORIDE 0.9% 500 ML IV SCH (14:00)
--- NOTE | 2022-05-16 14:20 | XRay Report ---
XR chest 1V portable CLINICAL HISTORY: COVID, severe cough, interval change TECHNIQUE: Single frontal radiograph of the chest was obtained. Comparison: Comparison is made to chest radiograph 05/14/2022 FINDINGS: No lines and tubes are seen. The cardiomediastinal silhouette is stable. The lungs are clear. No evid ence of pleural effusion or pneumothorax. Moderate to large hiatal hernia is again seen. IMPRESSION: No mikey pneumonia is evident radiographically. ACT 112: Negative or not required by law. Electronically signed by: Margarito Cordero M.D. 05/16/2022 2:19 PM
[2022-05-16] MEDS ORDERED: PANTOprazole 40 MG TAB PO STA (20:31)
--- NOTE | 2022-05-16 20:33 | Hospitalist Progress Note ---
Date of Service May 16, 2022 Assessment & Plan (1) Acute respiratory failure with hypoxia: Plan: 2nd to COVID-19 infection. resolved. [place] O2 off. 2-step O2 test for ambulatory oxygen -- passed the 2-step, home O2 NOT needed. (2) COVID-19: Plan: IMPROVING. completed 5 days of Remdesivir. day #6 of dexa - cont 4mg BID, but I gave a 3rd dose of 4mg today in the afternoon. no pneumonia on cxr x 3 including today's. I obtained the cxr today due to the severity of her wheezing and cough despite optimal Rx. cont pulmonary toilet. cont tessalon pearles 200mg TID scheduled. cont albuterol nebs qid. cont ICS/LABA daily. cont robitussin ac q6h prn. passed 2-step f/u with pulmonary post-d/c - [facility] - for suspected COPD. was a smoker for 50+ years. (3) Hypomagnesemia: Plan: repleted resolved likely 2nd to HCTZ usage at home (4) Controlled type 2 diabetes with neuropathy: Plan: Hold metformin and glipizide a1c 6.7% cont basal-bolus insulin with novolog + NPH appreciate pharmacy assistance with such resume PO meds at d/c (5) Hypertension: Plan: Continue metoprolol Continue WILSON STOP HCTZ STOP amlodipine --- due to dizziness / mild orthostasis (6) Degenerative arthritis of lumbar spine: (7) DVT prophylaxis: Plan: heparin 5000 TID Plan updated pt's by phone today - he has COVID but is improving nicely told him we were going to hold off on d/c today due to severe cough and the dizziness will give 500 cc of IV fluid today for the mild orthostasis Admission and Anticipated Discharge Date Admission Date: May 11, 2022 Subjective no issues overnight she feels ok still with cough/wheeze but no worse than prior anxious to go home eating well no dyspnea at any time Review of Systems Review of Systems: gen - eating well, sleeping well, no fevers neuro - dizzy upon standing; I checked orthostatics while I was in room - drop in BP by about 15 points with standing cv - no orthopnea pulm - minimal sputum at this point Physical Exam Physical Exam: gen - looks good today, still coughing; got dizzy when she stood up mouth - MMM neck - no JVD heart - RRR, s1 s2, no murmur lungs - still with wheezing all lung segments - slightly worse than yesterday ; no rales; airation good; no increased work of breathing abd - soft NT ND BS+ ext - no edema, pulses 2+ b/l psych - a/o x 3; normal affect Results & Data Results & Data Vital Signs (Past 12 Hours) Vital Signs Temp Pulse Resp BP Pulse Ox O2 Del Method FiO2 05/16/22 19:07 78 20 95 Room Air 05/16/22 15:41 63 18 97 Room Air 21 05/16/22 16:38 36.8 C 86 18 104/63 96 Room Air 05/16/22 11:24 68 20 95 Room Air 05/16/22 10:10 Room Air Laboratory Results Laboratory Results - last 24 hr 05/15/22 05/16/22 05/16/22 21:10 08:15 08:41 Sodium 139 Potassium 3.9 Chloride 103 Carbon Dioxide 29 Anion Gap 7 BUN 27 H Creatinine 0.99 Est Cr Clr Drug Dosing 42.0 Est GFR ( Amer) 61.9 Est GFR (Non-Af Amer) 53.4 BUN/Creatinine Ratio 27.3 H Glucose 178 H POC Glucose 95 137 H Calcium 9.3 AST 15 ALT 15 05/16/22 05/16/22 12:20 17:25 Sodium Potassium Chloride Carbon Dioxide Anion Gap BUN Creatinine Est Cr Clr Drug Dosing Est GFR ( Amer) Est GFR (Non-Af Amer) BUN/Creatinine Ratio Glucose POC Glucose 193 H 181 H Calcium AST ALT Diagnostic Findings Chest X-Ray 05/16/22 13:52 XR chest 1V portable CLINICAL HISTORY: COVID, severe cough, interval change TECHNIQUE: Single frontal radiograph of the chest was obtained. Comparison: Comparison is made to chest radiograph 05/14/2022 FINDINGS: No lines and tubes are seen. The cardiomediastinal silhouette is stable. The lungs are clear. No evidence of pleural effusion or pneumothorax. Moderate to large hiatal hernia is again seen. IMPRESSION: No mikey pneumonia is evident radiographically. ACT 112: Negative or not required by law. Electronically signed by: Margarito Cordero M.D. 05/16/2022 2:19 PM PG Care Time/CCT Total # of Minutes Spent Total Time Spent with Patient: Total time spent is greater than 50% in coordination of care (as documented) at patient's floor/unit and/or counseling patient: Coding Level of Care Code 85103 SUB INP/OBS CARE 3/50MIN Diagnoses Acute respiratory failure with hypoxia J96.01 COVID-19 U07.1 Hypomagnesemia E83.42 Controlled type 2 diabetes with neuropathy E11.40 Hypertension I10 Degenerative arthritis of lumbar spine M47.816 DVT prophylaxis Z29.9
[2022-05-16] MEDS: METOPROLOL SUCC 50MG EXT REL TAB PO SCH (21:11)
[2022-05-17] MEDS: HEPARIN SOD 5,000 UNIT/0.5 ML VIAL SQ SCH (06:13)
[2022-05-17 07:00] LABS: BUN Creatinine Ratio 28.8 (10-20); Creatinine Clr Calc Pharmacy 37.4 ml/min; Est GFR (African American) 53.9 ml/min; Est GFR (Non-African American) 46.5 ml/min; Potassium 4.2 mmol/L (3.5-5.1)
[2022-05-17] MEDS ORDERED: INSULIN ASPART PER UNIT CHARGE SC SCH (07:30)
[2022-05-17] MEDS: ALBUT/IPRATROP 3MG/0.5MG NEB 3 ML VIAL NEB SCH ×3 (07:32→15:12)
[2022-05-17] MEDS: INSULIN HUMAN NPH SC SCH (08:45)
[2022-05-17] MEDS: BENZONATATE 100 MG CAPSULE PO SCH (08:57)
[2022-05-17] MEDS: ENALAPRIL MALEATE 10 MG TAB PO SCH (08:58)
[2022-05-17] MEDS: dexAMETHasone 4 MG in SYRINGE 0 ML IV SCH (08:58)
[2022-05-17] MEDS: FIRST - Mouthwash BLM 119 ML PO SCH ×2 (08:58→12:40)
[2022-05-17] MEDS: POLYETHYLENE (MIRALAX) 17 GM PACK PO SCH (08:59)
[2022-05-17] MEDS: FLUTICASONE/VILANTEROL 100/25MCG 14 PUFFS/INHALER INH SCH (08:59)
[2022-05-17] MEDS ORDERED: PANTOprazole 40 MG TAB PO SCH (09:00)
[2022-05-17] MEDS: INSULIN ASPART PER UNIT CHARGE SC SCH (12:29)
--- NOTE | 2022-05-17 13:16 | Pharmacy Report ---
Pharmacy Glycemic Short Note 2 - Date of Service May 17, 2022 - Glycemic Short BSG Results (Last 24 hours): 05/16/22 05/16/22 05/17/22 17:25 20:34 06:13 Glucose 193 H POC Glucose 181 H 248 H 05/17/22 05/17/22 08:22 12:17 Glucose POC Glucose 175 H 222 H OUTPATIENT ANTIDIABETIC REGIMEN: * Metformin 1000mg PO BID * HbA1c: 6.7% ASSESSMENT: 05/17 * Blood sugars above goal throughout the day yesterday, and at lunch today despite tightening CF/CR at breakfast, fasting 193mg/dl. * Increase basal at this time, already tightened CF/CR with breakfast. * Patient remains on Dexamethasone 4mg IV Q12H 05/15 * Total of 28 units of insulin yesterday (of which NPH was 10 units). * Yesterday, BSG was 247 and 200 mg/dL for dinnertime and bedtime respectively. * FBSG was 133 mg/dL this morning. Her BSG seem to be low in the mornings but rise over the day. Tightened CF to 25 mg/dL/unit and CR to 8 g/unit for breakfast, lunch and dinnertime and left CF loose (30 mg/dL/unit) at bedtime. * Dexamethasone changed to 4mg IV BID. Will give NPH 10 units BID with dexamethasone 05/14 * Total of 26 units of insulin yesterday (10 units Lantus). She remains on dexamethasone 6mg IV q24h * BSG 81 - 86 mg/dL between breakfast and Lunch. Loosened CR to 10 g/unit for both times and will trend BSG. Otherwise continue previous plan 05/13: * Deisy received a total of 29 units of insulin yesterday (10 units Lantus + 19 units Novolog). She remains on dexamethasone 6mg IV q24h. * Fasting BSG is trending down. Patient may not require 24 hour long acting insulin based on home regimen and A1c. Will transition to NPH to avoid fasting hypoglycemia and better target postprandial BSG elevation at dinner and HS. May need to loosen carb coverage with NPH on board. Will monitor closely. 05/12: * Ms Back is an 81yo diabetic F admitted yesterday with resp failure/hypoxia, COVID-19. * Pt is receiving IV dexamethasone daily, which generally leads to steroid- induced hyperglycemia. * Pt was initiated on SQ basal/bolus insulin regimen. BSGs improved significantly overnight. * Will continue to follow and adjust regimen as indicated. PLAN FOR INPATIENT GLYCEMIC CONTROL: * Hold outpatient oral diabetes medications * Basal insulin * NPH 9 units SQ BID with meals * Bolus insulin * NovoLog per scale ACHS or Q6hrs while NPO * Goal Range: Low 110 mg/dL - High 140 mg/dL * Correction Factor: 30 mg/dL/unit (20mg/dL/unit at breakfast) * Nutritional / Prandial insulin per carb ratio of 1 unit per 11 grams CHO consumed ( 1 units per 7 grams at breakfast)
--- NOTE | 2022-05-17 13:59 | Discharge Summary ---
Date of Service May 17, 2022 Admission HPI Per Admitting Provider Deisy is an 81 year old female with a PMH significant for DM II, lumbar spine stenosis, COPD, and HTN who presented to the [facility] ED on 05/11/22 with a chief complaint of illness. In the ED the patient was found to be afebrile, hemodynamically stable, but hypoxic at 85% on RA. Labs were significant for a WBC WNL, stable Hgb and platelets, cr of 1.05 (baseline appears to be 0.8), BUN of 27, mag of 1.3 otherwise stable electrolytes, glucose of 157, high sen trop of 4.4, and covid 19 positive on full respiratory biofire panel. Chest xray was read as "No acute abnormalities and in particular no radiographic evidence of pneumonia.". Prior to admission the patient was placed on 2L NC and given an hour long DuoNeb treatment, 10 mg IV dexamethasone, 1L NSS, and 1gm IV magnesium. At the time of the exam the patient was resting in bed in no acute distress with her sitting in the other bed as they were evaluated together. The patient states that she started to develop URI symptoms including congestion, runny nose, a productive cough, sore throat, and SOB. She started to develop symptoms approximately 4 days ago and her started to develop symptoms 2 days ago. She actually brought her to the ED today to be evaluated and then asked to be evaluated herself. She feels somewhat improved compared to arrival but is still feeling generally weak. She denies recent headache, changes in vision, hearing, taste, and smell, chest pain, abd pain, nausea, vomiting, diarrhea, dysuria, hematuria, LE Swelling and recent trauma. When asked, she denies a previous history fo COPD or chronic lung disease. She was previously prescribed a prn albuterol inhaler but has not had to use it in years. Per chart review, I do not see nots from a Extended Day Teacher and COPD is never addressed in her previous Primary Care notes. There are no previous PFT's in her chart to review as well. We had a long discussion regarding code status, at this time she would NOT want CPR or defibrillation in the event of cardiac arrest. In the event of respiratory failure she would want a trial of intubation but would not want to live on a ventilator. If she cannot make medical decisions herself she would want her to make medical decisions for her. Please refer to Dr. Potter's attestation for any changes in the treatment plan Discharge Exam gen - looks good today, still coughing; got dizzy when she stood up mouth - MMM neck - no JVD heart - RRR, s1 s2, no murmur lungs - still with wheezing all lung segments - slightly worse than yesterday ; no rales; airation good; no increased work of breathing abd - soft NT ND BS+ ext - no edema, pulses 2+ b/l psych - a/o x 3; normal affect Discharge Data Allergies Allergy/AdvReac Type Severity Reaction Status Date / Time gabapentin AdvReac Unknown Confusion Verified 10/31/21 08:42 morphine AdvReac Unknown Unknown Verified 08/12/21 09:13 Consultations 05/11/22 12:46 ED Decision to Admit Stat Hospital Course (1) Acute respiratory failure with hypoxia: 2nd to COVID-19 infection. resolved. NC O2 off. 2-step O2 test for ambulatory oxygen -- passed the 2-step, home O2 NOT needed. (2) COVID-19: IMPROVING. completed 5 days of Remdesivir. day #6 of dexa - cont 4mg BID, but I gave a 3rd dose of 4mg today in the afternoon. no pneumonia on cxr x 3 including today's. I obtained the cxr today due to the severity of her wheezing and cough despite optimal Rx. cont pulmonary toilet. cont tessalon pearles 200mg TID scheduled. cont albuterol nebs qid. cont ICS/LABA daily. cont robitussin ac q6h prn. passed 2-step f/u with pulmonary post-d/c - [facility] - for suspected COPD. was a smoker for 50+ years. (3) Hypomagnesemia: repleted resolved likely 2nd to HCTZ usage at home (4) Controlled type 2 diabetes with neuropathy: Hold metformin and glipizide a1c 6.7% cont basal-bolus insulin with novolog + NPH appreciate pharmacy assistance with such resume PO meds at d/c (5) Hypertension: Continue metoprolol Continue WILSON STOP HCTZ STOP amlodipine --- due to dizziness / mild orthostasis (6) Degenerative arthritis of lumbar spine: (7) DVT prophylaxis: heparin 5000 TID Plan updated pt's by phone today - he has COVID but is improving nicely told him we were going to hold off on d/c today due to severe cough and the dizziness will give 500 cc of IV fluid today for the mild orthostasis Discharge Plan Discharge Items Patient Disposition: Home - Self-Care Reason For Visit: Respiratory illness Discharge Diagnosis: 1. severe bronchitis due to COVID-19 infection - resolving 2. high suspicion for undiagnosed "COPD" (chronic obstructive pulmonary disease) - pulmonology follow-up needed 3. dizziness - likely due to blood pressure medications - improved with adjustment of medication 4. type 2 diabetes Activity: As commented below Activity Comment: gradually increase your activities over the next 1-2 weeks as tolerated Driving/Machine Use: Resume 3 days after discharge Non-emergency contact: Primary Care Provider and Extended Day [employer] Call non-emergency contact if: you have any medication questions, your symptoms worsen and you have a fever Follow-up/Referrals: Balbir Lira MD [Primary Care Provider] - 06/03/22 3:00 pm Elan Dukes MD [Physician] - 06/03/22 12:45 pm (WILL SEE DR MANNING) Diet: Carb Consistent or DM2 Addtl Attending Provider Instructions: Mrs Back, You were hospitalized with COVID-19 infection. The COVID infection caused severe acute bronchitis. Your cough/wheezing/shortness of breath were all due to the COVID infection & bronchitis. multiple chest x-rays did not show any pneumonia. You gradually improved with use of Remdesivir anti-viral treatment, dexamethasone steroid, nebulizer treatments, and other supportive care. Prior to discharge we performed a walking test in your room to see if you needed home oxygen. You passed this test easily. In addition, you complained that you experience dizziness with standing at home. I believe this is due to your blood pressure being low at times. To help with this we held your amlodipine and hydrochlorothiazide blood pressure pills. Despite not taking these your blood pressures remained normal. I am suspicious that you may have underlying, undiagnosed COPD (chronic obst ructive pulmonary disease) as a result of previous long-time smoking. We have set you up to see a lung doctor with [facility] in a few weeks. He will be able to do a breathing test called "pulmonary function testing" which can help diagnose COPD. If you have COPD this puts you at risk of getting significant episodes of cough & bronchitis due to respiratory viruses. Recommendations - 1. Medications for your resolving bronchitis - * dexamethasone steroid taper - this is to reduce the inflammation in your bronchiole tubes - take as follows: Today, 05/17/22 - take 2 tabs by mouth x 1. 05/18 and 05/19 - take 3 tabs by mouth each day. 05/20 and 05/21 - take 2 tabs by mouth each day. 05/22 and 05/23 - take 1 tab by mouth each day. 05/24 and 05/25 - take 1/2 tab by mouth each day. Take the steroid with food. Know that the steroid WILL raise your blood sugars for the next 7-10 days. Please watch your blood sugars and diet carefully as you finish the steroids. 2. Medications for cough - * tessalon pearles (benzonatate) - 100mg every 8 hours as needed * if you don't experience cough relief with the benzonatate you can take codeine-based cough syrup as follows - * codeine-guaifenesin liquid - 5ml every 6 hours as needed * know that the codeine cough syrup may make you sleepy; thus, no driving if you are taking this medication * the cough syrup can also cause constipation 3. Medications for cough/wheezing/shortness of breath - * ipratropium-albuterol nebulizer treatments - 1 treatment every 6 hours as needed; use via your nebulizer machine * you may want to use this 2-3 times a day for the next several days during your recovery at home * if you are using the nebulizer machine at home please know that there is a chance that the treatments can expel the COVID virus into the air; thus, when using this at home over the next few days, please do not invite visitors into your home * I have also prescribed you a hand-held albuterol inhaler; this is nice when you are out of your home, traveling, at the grocery store, etc; * albuterol inhaler should be used with a "spacer device" (see handout) * albuterol inhaler can be used as follows - 2 puffs via spacer every 6 hours as needed for cough/wheezing/shortness of breath * DO NOT TAKE HANDHELD ALBUTEROL INHALER AT THE SAME TIME YOU ARE USING THE NEBULIZER BREATHING TREATMENTS 4. For suspected COPD - * Breo inhaler - 1 puff once daily every day; rinse your mouth with water after each use and spit the water out * at your future lung doctor appointment they will tell you whether you should continue this terminal operator 5. High blood pressure - please STOP the following medications for now - * amlodipine * hydrochlorothiazide 6. Please resume your diabetic medications as soon as you arrive home (metformin + glipizide). 7. Check your "pulse ox" levels on your finger with the pulse oximeter device you already have at home. Do this a couple times a day for the next few days. If your oxygen levels are consistently over 90% these are good, acceptable levels. If the levels are less than 90% consistently please seek medical attention. 8. You have another 1-2 weeks of recovery ahead. During this time focus on good hydration and nutrition, resting, and taking it easy. Don't over do it. Listen to your body and rest as needed. Your cough may last another 1-2 weeks as well. 9. Plan to stay at home this weekend in "isolation." Do not allow visitors to your home at this time. On Thursday afternoon you can come out of isolation if you are feeling well, your cough is reasonable, and all other symptoms have improved. Please continue to wear a mask in public. Follow-up - Please schedule a "telehealth" visit with your family doctor for the middle of this week to ensure you are continuing to recover well. See other section for office visits that are scheduled for you. Return to [facility] if -- * you have fevers over 100 degrees * you have worsening shortness of breath despite taking all of the above medications * your oxygen levels on your pulse oximeter are consistently less than 90% * you have chest pains * any other concerns It was our pleasure caring for you, and please continue to feel better, Dr Martinez Pending Studies at Discharge: No Stand-Alone Forms: My [facility], Smoking Cessation Medications and DC Order Prescriptions: [facility] See Rx Instructions .Route Qty: 1 0RF Rx Instructions: As directed ipratropium-albuterol 0.5 mg-3 mg(2.5 mg base)/3 mL Solution For Nebulization 3 ml NEB Q6H PRN (Reason: cough/wheezing/shortness of breath) Qty: 1 0RF benzonatate 100 mg Capsule 100 mg PO TID PRN (Reason: cough) Qty: 20 0RF codeine-guaifenesin [Guaiatussin AC] 10-100 mg/5 mL Liquid 5 ml PO Q6H PRN (Reason: severe cough not relieved by benzonatate) Qty: 120 0RF fluticasone furoate-vilanterol [Breo Ellipta] 100-25 mcg/dose Blister With Device 1 puff inhalation DAILY Qty: 1 1RF dexamethasone 2 mg tablet 2 mg PO .as directed Qty: 15 0RF Rx Instructions: 4/1: 2 tabs po x 1; 4/2 and 4/3 - 3 tabs PO daily; 4/4 and 4/5 - 2 tabs PO daily ; 4/6 and 4/7 - 1 tab PO daily. 4/8 and 4/9 - 1/2 tab po daily. Take w/ food. Continued metformin 1,000 mg tablet 1,000 mg PO BID Qty: 180 1RF benazepril 20 mg tablet 20 mg PO DAILY Qty: 90 1RF glipizide 5 mg tablet extended release 24hr 5 mg PO DAILY Qty: 90 3RF Hold Instructions: low A1C Rx Instructions: before dinner (DME) OneTouch Verio test strips Strip See Rx Instructions .ROUTE .MEDSUPPLY Qty: 100 3RF Rx Instructions: Test twice daily. cyanocobalamin (vitamin B-12) 100 mcg tablet 200 mcg PO BID Qty: 30 cholecalciferol (vitamin D3) 1,000 unit capsule 1,000 units PO DAILY Qty: 30 0RF metoprolol succinate 100 mg tablet extended release 24 hr 100 mg PO HS Changed albuterol sulfate 90 mcg/actuation HFA aerosol inhaler 2 puffs inhalation Q6H PRN (Reason: cough/wheeze/shortness of breath) Qty: 1 0RF Rx Instructions: use with spacer device Discontinued amlodipine 10 mg tablet 10 mg PO DAILY Qty: 90 3RF hydrochlorothiazide 25 mg tablet See Rx Instructions .ROUTE .COMPLEX Qty: 45 1RF Dose Instruction: TAKE 1 TABLET BY MOUTH EVERY OTHER DAY FOR HYPERTENSION Rx Instructions: TAKE 1 TABLET BY MOUTH EVERY OTHER DAY FOR HYPERTENSION naproxen sodium [Aleve] 220 mg capsule 220 mg PO BID PRN (Reason: pain) Qty: 10 0RF Discharge Orders: Discharge Order (Routine); Ordered 05/17/22 Ordered By: Christopher Guillaume/Other Patient Handouts: Managing Type 2 Diabetes, Using an Inhaler with a Spacer, Using a Nebulizer (Adult) Admission Data Admit Date/Time: 05/11/22 13:26 Attending Provider: Christopher Martinez Admit Provider: Christopher Potter Primary Care Provider: Balbir Lira V. Other Providers: Christopher Potter Coding Diagnoses Acute respiratory failure with hypoxia J96.01 COVID-19 U07.1 Hypomagnesemia E83.42 Controlled type 2 diabetes with neuropathy E11.40 Hypertension I10 Degenerative arthritis of lumbar spine M47.816 DVT prophylaxis Z29.9
[2022-05-17] MEDS ORDERED: INSULIN HUMAN NPH SC SCH (17:00)
== END 2022-05-17 14:50 | disposition home or self-care (01) | DRG 177 ==
LOC: ED 10:07 → SUATTDRO 13:26 → EDINP 13:26 → 2N 13:54 → 3E 05-13 00:13

== ENCOUNTER 2022-06-08 17:30 | Inpatient (IN) ==
--- NOTE | 2022-06-08 18:28 | XRay Report ---
XR chest 1V not portable HISTORY: 81 years-old Female Chest pain, nonspecific COMPARISON: 05/16/2022 TECHNIQUE: AP view of the chest FINDINGS: Cardiac silhouette is enlarged. Hiatal hernia. Atherosclerosis of the aorta. Skin folds project over the chest. No pneumothorax, pleural effusion, airspace consolidation or pulmonary edema. No chronic f racture of the anterior right third rib. Degenerative changes of the shoulders and spine. IMPRESSION: 1. Cardiomegaly without acute process. 2. Hiatal hernia. ACT 112: Negative or not required by law. The above report was generated using voice recognition software. It may contain grammatical, syntax o r spelling errors. Electronically signed by: Robin Gamino M.D. 06/08/2022 6:25 PM
[2022-06-08 18:30] LABS: Basophils # (auto) 0.04 K/uL (0-0.2); Basophils % (auto) 0.5 %; Eosinophils # (auto) 0.28 K/uL (0-0.50); Eosinophils % (auto) 3.8 %; Hematocrit (blood only) 42.7 % (37.0-47.0); Immature Granulocytes # (auto) 0.03 K/uL (0.01-0.20); Immature Granulocytes % (auto) 0.4 %; Mean Corpuscular Hemoglobin 30.4 pg (25.0-34.0); Mean Corpuscular Hgb Conc 35.1 g/dL (32.0-36.0); Mean Corpuscular Volume 86.6 fL (80.0-100.0); Mean Platelet Volume 10.6 fL (9.4-12.4); Monocytes # (auto) 0.74 K/uL (0.11-0.59); Monocytes % (auto) 10.1 %; Neutrophils # (auto) 4.86 K/uL (1.40-6.50); Neutrophils % (auto) 66.2 %; Platelet Count 251 K/uL (130-400); RDW Coefficient of Variation 14.1 % (11.5-14.5); RDW Standard Deviation 43.8 fL (36.4-46.3); Red Blood Count 4.93 M/uL (4.20-5.40); White Blood Count 7.35 K/ul (4.8-10.8)
--- NOTE | 2022-06-08 18:35 | Emergency Department Note ---
Impression & Plan COPD with acute exacerbation, Hypoxia, Cough ED Provider Note NAME: TABATHA SIM AGE: 81 SEX: F : 1940 ARRIVES VIA: Walk-In INFORMANT: Patient, ED PROVIDER(S): Filemon Flores MD CHIEF COMPLAINT: Shortness of breath, cough MEDICAL DECISION MAKING: Patient presents due to concern for shortness of breath and cough. IV was established blood work was obtained. The patient was treated symptomatically with IV fluids IV steroids. and albuterol nebulizer treatment. Next The patient's blood work was reviewed patient shows a normal white count H&H and platelet count by patient's coags are unremarkable with normal kidney function and electrolytes. BSG 161. The patient's bio fire was completed positive for COVID. The patient had tested positive for COVID toward the end of April. Procalcitonin is not elevated. Patient was ordered a dose of doxycycline given the patient's productive sputum. The patient did undergo an ambulatory trial was noted to be hypoxemic to 87%. The patient does not wear any at home oxygen. Given this concern I did speak the on-call hospitalist service Dr. Kline and the patient was admitted to the medicine service. Critical Care: I have personally spent 42 minutes of critical care time in direct management of this patient. This includes bedside care, interpretation of diagnostic studies, and testing, discussion with consultants, patient, and family members, and other require inpatient management activities. This 42 minutes is in excess of all separately billable procedures. Prior /Outside records reviewed: I did review the patient's most recent pulmonary visit from June [address] Stephenson she had been seen for COPD and COVID. Patient was started on Anoro Ellipta at that time Differential diagnosis: Reactive airway disease, pneumonia, pneumothorax, COPD, CHF, infections, cardiac ischemia, pulmonary embolism, musculoskeletal, gastrointestinal, as well as oth er pathologies. Diagnostics, as interpreted by me: ECG: Sinus tachycardia, rate of 106, normal intervals left axis deviation no ST elevations. Cardiac monitoring: An order was placed for continuous cardiac monitoring. The monitor shows a rate of 95 with sinus rhythm. Patient was placed on pulse oximetry Medical decision rules: None Imaging studies: See below I informally reviewed the patient's chest x-ray which shows no obvious pneumonia. HPI: Patient presents due to concern for shortness of breath and cough for the last 3 days. The patient does have a known history of being a former smoker last working about 10 years ago. 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 Patient did require inpatient treatment at that time. The patient states that her cough has been productive and yellow sputum. The patient does not wear any oxygen at home. The patient does complain of hoarse voice as well as the associated cough short ness of breath dyspnea on exertion. No leg swelling or calf pain the patient denies any orthopnea. Patient presented here for further evaluation treatment as she was not getting better at home using her regular medications for known history of COPD PAST MEDICAL HISTORY: See Below PAST SURGICAL HISTORY: See Below SOCIAL HISTORY: See Below HOME MEDICATIONS: See Below ALLERGIES: See Below VITALS: See Below PHYSICAL EXAMINATION: GENERAL: NAD, wearing a mask, non-toxic. EYE EXAM: Normal conjunctiva. PERRL, no anisocoria and EOM's grossly intact w/o pain. NECK: Supple, no nuchal rigidity, no adenopathy, non-tender. No signs of meningismus. FROM of the neck with good chin to chest and neck extension. No stridor. LUNGS: Clear to auscultation. Normal chest wall mechanics. HEART: NSR, no MRG. ABDOMEN: Abdomen soft, non-tender, no masses, no rebound or guarding. BACK: No CVA TTP. SKIN: No rashes and no bruising. UPPER EXTREMITIES: Upper extremities are grossly normal. LOWER EXTREMITIES: Grossly normal, no edema. Negative Homans' sign bilaterally NEURO EXAM: A&O x3, cranial nerves II-XII grossly intact, normal speech, moves all 4 extremities. Past Med/Surg History Medical History Chronic obstructive pulmonary disease Mild obstructive disease - Sprirometry 06/03/22 Controlled type 2 diabetes with neuropathy Diabetic nephropathy Diabetic peripheral neuropathy associated with type 2 diabetes mellitus Essential hypertriglyceridemia Fall, accidental Hip fracture Internal hemorrhoids Low back pain Osteopenia Seborrheic dermatitis Sensorineural hearing loss (SNHL) of both ears Stress incontinence in female URI (upper respiratory infection) Surgical History History of back surgery History of removal of cyst Hx of tonsillectomy S/P appendectomy Family History Father Emphysema of lung Sister Breast cancer Denies family history of Ovarian cancer Prostate cancer Myocardial infarction Colorectal cancer Social History Smoking Status: Former smoker Tobacco Type: Cigarettes Age Started Using Tobacco: 17; Age Quit Using Tobacco: 71; packs per day: 0.5; Second Hand Exposure: No; Do You Dip or Chew Tobacco: No; Tobacco Cessation Education Requested by Patient: No Hx Alcohol Use: No Hx Substance Use: No Preferred Language: Hungarian Communication Ability: Effective Skimmer Reverberatory Required: No Beliefs That Will Affect Care: None marital status: Current Living Situation: Family Current Living Situation Comment: patient, and son current occupational status: retired Other Information That Helps Us Care for You: No Feels Safe at Home: Yes Safety Concerns: Feels Safe At This Time Childhood Exposure to Second-Hand Smoke: Yes Dental Care, Regularly: Yes Physical Activity Frequency: 1-2 Times per Week Seatbelt Use: always Sunscreen Use: Yes Assistive Devices: Cane, Nebulizer and Walker Allergies Allergies Allergy/AdvReac Type Severity Reaction Status Date / Time gabapentin AdvReac Unknown Confusion Verified 06/08/22 18:01 morphine AdvReac Unknown Unknown Verified 06/08/22 18:01 Home Meds Home Medications Medication Instructions Recorded Confirmed cyanocobalamin (vitamin B-12) 100 200 mcg PO BID #30 tabs 09/07/18 06/08/22 mcg tablet metoprolol succinate 100 mg 100 mg PO HS 05/11/22 06/08/22 tablet,extended release 24 hr Previous Rx's Medication Instructions Recorded cholecalciferol (vitamin D3) 25 1,000 units PO DAILY #30 caps 09/07/18 mcg (1,000 unit) capsule glipizide 5 mg tablet, extended 5 mg PO DAILY #90 tabs 04/25/22 release 24 hr blood sugar diagnostic (OneTouch #100 ea 04/29/22 Verio test strips) nebulizers #1 ea 05/15/22 albuterol sulfate 90 mcg/actuation 2 puffs inhalation Q6H PRN 05/17/22 aerosol inhaler cough/wheeze/shortness of breath #1 inhaler benzonatate 100 mg capsule 100 mg PO TID PRN cough #20 caps 05/17/22 ipratropium 0.5 mg-albuterol 3 mg 3 ml NEB Q6H PRN 05/17/22 (2.5 mg base)/3 mL nebulization cough/wheezing/shortness of breath soln #1 box benazepril 20 mg tablet 20 mg PO DAILY #90 tabs 05/28/22 metformin 1,000 mg tablet 1,000 mg PO BID #180 tabs 05/28/22 umeclidinium 62.5 mcg-vilanterol 1 inh inhalation DAILY #60 ea 06/03/22 25 mcg/actuation powdr for inhalation (Anoro Ellipta) Results & Data (ED) Vital Signs Vital Signs - 24 hr 06/08/22 17:34 06/08/22 18:01 06/08/22 19:54 Temperature 36.1 C L Temperature Source Temporal Artery Scan Pulse Rate 112 H 102 H Pulse Rate [Apical] Pulse Rhythm Regular Pulse Strength Normal Respiratory Rate 20 Respiratory Effort / Characteristics Non-Labored Spontaneous Respiratory Depth Normal Respiratory Pattern Regular Blood Pressure 143/79 H Blood Pressure [Left Arm] Blood Pressure Mean 100 Blood Pressure Mean [Left Arm] Blood Pressure Position Sitting Pulse Oximetry 94 91 Oxygen Delivery Method Room Air Room Air Oxygen Flow Rate Sepsis Recent Fever Within 48 Hours No Sepsis New/Unexplained Change in Mental Status No Sepsis Action Taken by Nursing No Action Required 06/08/22 19:56 06/08/22 20:08 06/08/22 20:08 Temperature Temperature Source Pulse Rate Pulse Rate [Apical] 91 H Pulse Rhythm Pulse Strength Respiratory Rate 24 Respiratory Effort / Characteristics Respiratory Depth Respiratory Pattern Blood Pressure Blood Pressure [Left Arm] 126/76 Blood Pressure Mean Blood Pressure Mean [Left Arm] 92 Blood Pressure Position Pulse Oximetry 90 87 L 94 Oxygen Delivery Method Room Air Room Air Nasal Cannula Oxygen Flow Rate 1 Sepsis Recent Fever Within 48 Hours Sepsis New/Unexplained Change in Mental Status Sepsis Action Taken by Long-Term Medications Current Medication List: was personally reviewed by me Laboratory Data Attestation: I reviewed the patient's lab results. 06/08/22 18:11 06/08/22 18:11 Lab Results 06/08/22 06/08/22 06/08/22 Range/Units 18:11 18:11 18:11 WBC 7.35 (4.8-10.8) K/ul RBC 4.93 (4.20-5.40) M/uL Hgb 15.0 (12.0-16.0) g/dl Hct 42.7 (37.0-47.0) % MCV 86.6 (80.0-100.0) fL MCH 30.4 (25.0-34.0) pg MCHC 35.1 (32.0-36.0) g/dL RDW Std Deviation 43.8 (36.4-46.3) fL RDW Coeff of Latasha 14.1 (11.5-14.5) % Plt Count 251 (130-400) K/uL MPV 10.6 (9.4-12.4) fL Immature Gran % (Auto) 0.4 % Neut % (Auto) 66.2 % Lymph % (Auto) 19.0 % [place] % (Auto) 10.1 % Eos % (Auto) 3.8 % Baso % (Auto) 0.5 % Neut # (Auto) 4.86 (1.40-6.50) K/uL Lymph # (Auto) 1.40 (1.2-3.4) K/uL [place] # (Auto) 0.74 H (0.11-0.59) K/uL Eos # (Auto) 0.28 (0-0.50) K/uL Baso # (Auto) 0.04 (0-0.2) K/uL Immature Gran # (Auto) 0.03 (0.01-0.20) K/uL PT 11.4 (9.0-12.0) Seconds INR 1.0 (0.9-1.1) APTT 25.6 (21.0-31.0) Seconds PTT Ratio 0.9 Sodium 138 (136-145) mmol/L Potassium 3.7 (3.5-5.1) mmol/L Chloride 102 (98-107) mmol/L Carbon Dioxide 30 (21-32) mmol/L Anion Gap 6 (3-11) BUN 15 (6-23) mg/dl Creatinine 0.98 (0.6-1.2) mg/dl Est Cr Clr Drug Dosing 41.6 ml/min Est GFR ( Amer) 62.7 ml/min Est GFR (Non-Af Amer) 54.1 ml/min BUN/Creatinine Ratio 15.3 (10-20) Glucose 161 H (70-99(Fasting)) mg/dl Calcium 9.8 (8.6-10.3) mg/dl Total Bilirubin 0.7 (0.2-1.0) mg/dl AST 12 L (13-39) U/L ALT 10 (7-52) U/L Alkaline Phosphatase 83 (34-104) U/L Troponin I High Sens 8.2 (0-14) pg/ml Total Protein 6.9 (6.0-8.3) gm/dl Albumin 3.8 (3.4-5.0) gm/dl Globulin 3.1 (2.5-4.0) gm/dl Albumin/Globulin Ratio 1.2 (0.9-2) Procalcitonin (0-0.5) ng/ml Adenovirus (PCR) (NotDetected) B. pertussis DNA (PCR) (NotDetected) B.parapertussis DNA PCR (NotDetected) C. pneumoniae DNA (PCR) (NotDetected) Coronavirus OC43 (PCR) (NotDetected) Coronavirus HKU1 (PCR) (NotDetected) Coronavirus 229E (PCR) (NotDetected) SARS-CoV-2 (PCR) (NotDetected) Coronavirus NL63 (PCR) (NotDetected) Human Metapneumovir PCR (NotDetected) Influenza Type A (PCR) (NotDetected) Influenza Type B (PCR) (NotDetected) M. pneumoniae (PCR) (NotDetected) Parainfluenza 1 (PCR) (NotDetected) Parainfluenza 2 (PCR) (NotDetected) Parainfluenza 3 (PCR) (NotDetected) Parainfluenza 4 (PCR) (NotDetected) RSV (PCR) (NotDetected) Entero/Rhino (PCR) (NotDetected) 06/08/22 06/08/22 Range/Units 18:12 19:01 WBC (4.8-10.8) K/ul RBC (4.20-5.40) M/uL Hgb (12.0-16.0) g/dl Hct (37.0-47.0) % MCV (80.0-100.0) fL MCH (25.0-34.0) pg MCHC (32.0-36.0) g/dL RDW Std Deviation (36.4-46.3) fL RDW Coeff of Latasha (11.5-14.5) % Plt Count (130-400) K/uL MPV (9.4-12.4) fL Immature Gran % (Auto) % Neut % (Auto) % Lymph % (Auto) % [place] % (Auto) % Eos % (Auto) % Baso % (Auto) % Neut # (Auto) (1.40-6.50) K/uL Lymph # (Auto) (1.2-3.4) K/uL [place] # (Auto) (0.11-0.59) K/uL Eos # (Auto) (0-0.50) K/uL Baso # (Auto) (0-0.2) K/uL Immature Gran # (Auto) (0.01-0.20) K/uL PT (9.0-12.0) Seconds INR (0.9-1.1) APTT (21.0-31.0) Seconds PTT Ratio Sodium (136-145) mmol/L Potassium (3.5-5.1) mmol/L Chloride (98-107) mmol/L Carbon Dioxide (21-32) mmol/L Anion Gap (3-11) BUN (6-23) mg/dl Creatinine (0.6-1.2) mg/dl Est Cr Clr Drug Dosing ml/min Est GFR ( Amer) ml/min Est GFR (Non-Af Amer) ml/min BUN/Creatinine Ratio (10-20) Glucose (70-99(Fasting)) mg/dl Calcium (8.6-10.3) mg/dl Total Bilirubin (0.2-1.0) mg/dl AST (13-39) U/L ALT (7-52) U/L Alkaline Phosphatase (34-104) U/L Troponin I High Sens (0-14) pg/ml Total Protein (6.0-8.3) gm/dl Albumin (3.4-5.0) gm/dl Globulin (2.5-4.0) gm/dl Albumin/Globulin Ratio (0.9-2) Procalcitonin < 0.05 (0-0.5) ng/ml Adenovirus (PCR) Not Detected (NotDetected) B. pertussis DNA (PCR) Not Detected (NotDetected) B.parapertussis DNA PCR Not Detected (NotDetected) C. pneumoniae DNA (PCR) Not Detected (NotDetected) Coronavirus OC43 (PCR) Not Detected (NotDetected) Coronavirus HKU1 (PCR) Not Detected (NotDetected) Coronavirus 229E (PCR) Not Detected (NotDetected) SARS-CoV-2 (PCR) DETECTED A* (NotDetected) Coronavirus NL63 (PCR) Not Detected (NotDetected) Human Metapneumovir PCR Not Detected (NotDetected) Influenza Type A (PCR) Not Detected (NotDetected) Influenza Type B (PCR) Not Detected (NotDetected) M. pneumoniae (PCR) Not Detected (NotDetected) Parainfluenza 1 (PCR) Not Detected (NotDetected) Parainfluenza 2 (PCR) Not Detected (NotDetected) Parainfluenza 3 (PCR) Not Detected (NotDetected) Parainfluenza 4 (PCR) Not Detected (NotDetected) RSV (PCR) Not Detected (NotDetected) Entero/Rhino (PCR) Not Detected (NotDetected) Administered Medications Albuterol (Albut/Ipratrop 3mg/0.5mg Neb 3 Ml Vial) 3 ml NEB Q4R [facility]; Protocol Stop: 07/08/22 22:59 Last Admin: 06/09/22 15:50 Dose: 3 ml Documented By: Admin: 06/09/22 10:43 Dose: 3 ml Documented By: Admin: 06/09/22 07:52 Dose: 3 ml Documented By: Admin: 06/09/22 03:30 Dose: Not Given Documented By: Admin: 06/08/22 23:45 Dose: 3 ml Documented By: HOANG Enalapril Maleate (Enalapril Maleate 10 Mg Tab) 20 mg PO DAILY [facility] Stop: 07/09/22 08:59 Last Admin: 06/09/22 08:49 Dose: 20 mg Documented By: KENDELL Enoxaparin Sodium (Enoxaparin Inj 40 Mg/0.4 Ml Syr) 40 mg SQ Q24H [facility] Stop: 07/08/22 22:59 Last Admin: 06/08/22 23:33 Dose: 40 mg Documented By: HALEIGH Azithromycin 500 mg/ Dextrose 255 mls @ 127.5 mls/hr IV Q24H [facility] Stop: 06/16/22 07:59 Last Infusion: 06/09/22 12:14 Dose: 0 mls/hr Documented By: Admin: 06/09/22 08:42 Dose: 127.5 mls/hr Documented By: KENDELL Methylprednisolone 40 mg/ (Syringe) 0.64 mls @ 1.5 mls/min IV BID MIGUEL A Stop: 07/09/22 08:59 Last Admin: 06/09/22 08:40 Dose: 1.5 mls/min Documented By: KENDELL Insulin Aspart (Insulin Aspart Per Unit Charge) 0 units SC ACHS [facility] Stop: 07/08/22 20:59 Last Admin: 06/09/22 12:22 Dose: 8 units Documented By: KENDELL Co-signed By: DENTON Admin: 06/09/22 08:30 Dose: 11 units Documented By: KENDELL Co-signed By: DENTON Admin: 06/08/22 21:14 Dose: 1 units Documented By: SHAYLA Co-signed By: BELLA Metoprolol Succinate (Metoprolol Succ 50mg Ext Rel Tab) 100 mg PO HS [facility] Stop: 07/08/22 22:57 Last Admin: 06/08/22 23:36 Dose: Not Given Documented By: HALEIGH Umeclidinium/Vilanterol (Umeclidinium/Vilanterol 62.5/25mcg 7 Puffs/Inhaler) 1 puffs INH DAILY MIGUEL A Stop: 07/09/22 08:59 Last Admin: 06/09/22 08:51 Dose: 1 puffs Documented By: KENDELL Discontinued Medications Albuterol (Albuterol 0.083% Nebu Soln 3 Ml Vial) 2.5 mg NEB NOW STA; Protocol Stop: 06/08/22 18:42 Last Admin: 06/08/22 18:58 Dose: 2.5 mg Documented By: JUWAN Benzonatate (Benzonatate 100 Mg Capsule) 100 mg PO NOW ONE Stop: 06/08/22 18:42 Last Admin: 06/08/22 18:58 Dose: 100 mg Documented By: JUWAN Doxycycline Hyclate (Doxycycline Hyclate 100 Mg Cap) 100 mg PO NOW STA Stop: 06/08/22 20:16 Last Admin: 06/08/22 21:00 Dose: 100 mg Documented By: SHAYLA Fluticasone Furoate (Fluticasone Furoate 100mcg 14 Puffs/Inhaler) 1 puffs INH NOW STA Stop: 06/08/22 20:51 Last Admin: 06/08/22 21:53 Dose: 1 puffs Documented By: SHAYLA Sodium Chloride (Nss 1000ml) 1,000 mls @ 999 mls/hr IV .Q1H1M ONE Stop: 06/08/22 19:41 Last Admin: 06/08/22 19:50 Dose: Not Given Documented By: SHAYLA Sodium Chloride (Nss 1000ml) 500 mls @ 999 mls/hr IV .Q31M ONE Stop: 06/08/22 19:17 Last Infusion: 06/08/22 19:53 Dose: 0 mls/hr Documented By: Admin: 06/08/22 18:55 Dose: 999 mls/hr Documented By: JUWAN Insulin Glargine (Lantus Per Unit Charge) 5 units SQ BID MIGUEL A Stop: 07/08/22 20:59 Last Admin: 06/09/22 08:32 Dose: 5 units Documented By: KENDELL Co-signed By: DENTON Admin: 06/08/22 21:15 Dose: 5 units Documented By: SHAYLA Co-signed By: DML Methylprednisolone (Methylprednisolone 40 Mg/Ml Vial) 40 mg IV NOW STA Stop: 06/08/22 18:42 Last Admin: 06/08/22 18:57 Dose: 40 mg Documented By: JUWAN Methylprednisolone (Methylprednisolone 40 Mg/Ml Vial) 40 mg IV NOW STA Stop: 06/08/22 20:44 Last Admin: 06/08/22 21:00 Dose: 40 mg Documented By: SHAYLA Imaging Data Radiologist's Impression: Chest X-Ray 06/08/22 17:37 XR chest 1V not portable HISTORY: 81 years-old Female Chest pain, nonspecific COMPARISON: 05/16/2022 TECHNIQUE: AP view of the chest FINDINGS: Cardiac silhouette is enlarged. Hiatal hernia. Atherosclerosis of the aorta. Skin folds project over the chest. No pneumothorax, pleural effusion, airspace consolidation or pulmonary edema. No chronic fracture of the anterior right third rib. Degenerative changes of the shoulders and spine. IMPRESSION: 1. Cardiomegaly without acute process. 2. Hiatal hernia. ACT 112: Negative or not required by law. The above report was generated using voice recognition software. It may contain grammatical, syntax or spelling errors. Electronically signed by: Robin Gamino M.D. 06/08/2022 6:25 PM Discharge Plan Visit Data Chief Complaint: Cough Stated Complaint: VOICE IS GONE, COUGH ED Provider: Filemon Flores Discharge Problem: COPD with acute exacerbation, Hypoxia, Cough Patient Disposition: Admitted As Inpatient Discharge Instructions Interventions: ED Discharge Assessment Last Done: 06/08/22 22:35
[2022-06-08] MEDS ORDERED: BENZONATATE 100 MG CAPSULE PO ONE (18:41)
[2022-06-08] MEDS ORDERED: ALBUTEROL 0.083% NEBU SOLN 3 ML VIAL NEB STA (18:41)
[2022-06-08] MEDS ORDERED: SODIUM CHLORIDE 0.9% 1000ML 1,000 ML IV ONE (18:41)
[2022-06-08 18:43] LABS: Albumin Globulin Ratio 1.2 (0.9-2); Albumin Level 3.8 gm/dl (3.4-5.0); BUN Creatinine Ratio 15.3 (10-20); Bilirubin,Total 0.7 mg/dl (0.2-1.0); Calcium 9.8 mg/dl (8.6-10.3); Creatinine Clr Calc Pharmacy 41.6 ml/min; Est GFR (African American) 62.7 ml/min; Est GFR (Non-African American) 54.1 ml/min; Globulin 3.1 gm/dl (2.5-4.0); Potassium 3.7 mmol/L (3.5-5.1); Total Protein 6.9 gm/dl (6.0-8.3)
[2022-06-08] MEDS ORDERED: SODIUM CHLORIDE 0.9% 1000ML 500 ML IV ONE (18:47)
[2022-06-08 18:49] LABS: Troponin I High Sensitivity 8.2 pg/ml (0-14)
[2022-06-08 19:02] LABS: Partial Thromboplastin Ratio 0.9; Partial Thromboplastin Time 25.6 Seconds (21.0-31.0); Prothrombin Time 11.4 Seconds (9.0-12.0)
[2022-06-08 20:04] LABS: Adenovirus PCR Not Detected (NotDetected); Bordetella parapertussis PCR Not Detected (NotDetected); Bordetella pertussis PCR Not Detected (NotDetected); Chlamydia pneumoniae PCR Not Detected (NotDetected); Coronavirus 229E PCR Not Detected (NotDetected); Coronavirus HKU1 PCR Not Detected (NotDetected); Coronavirus NL63 PCR Not Detected (NotDetected); Coronavirus OC43PCR Not Detected (NotDetected); Human Metapneumovirus PCR Not Detected (NotDetected); Influenza A PCR Not Detected (NotDetected); Influenza B PCR Not Detected (NotDetected); Mycoplasma pneumoniae PCR Not Detected (NotDetected); Parainfluenza Virus 1 PCR Not Detected (NotDetected); Parainfluenza Virus 2 PCR Not Detected (NotDetected); Parainfluenza Virus 3 PCR Not Detected (NotDetected); Parainfluenza Virus 4 PCR Not Detected (NotDetected); Respiratory Syncytial VirusPCR Not Detected (NotDetected); Rhinovirus/Enterovirus PCR Not Detected (NotDetected)
[2022-06-08 20:09] LABS: Coronavirus CoV-2 (COVID19)PCR DETECTED (NotDetected)
[2022-06-08] MEDS ORDERED: DOXYCYCLINE HYCLATE 100 MG CAP PO STA (20:15)
[2022-06-08] MEDS ORDERED: guaiFENesin SUGAR FREE 200 MG/10 ML UDC PO PRN (20:30)
[2022-06-08] MEDS ORDERED: DEXTROSE 50% 50 ML SYRINGE IV PRN (20:32)
[2022-06-08] MEDS ORDERED: GLUCAGON FOR INJ 1 MG VIAL SQ PRN (20:32)
[2022-06-08] MEDS ORDERED: GLUCOSE 10 TAB/TUBE PO PRN (20:32)
[2022-06-08] MEDS ORDERED: CARBOHYDRATES FOR HYPOGLYCEMIA PO PRN (20:32)
[2022-06-08] MEDS ORDERED: GLUCOSE 40% GEL 15 GM TUBE PO PRN (20:32)
[2022-06-08] MEDS ORDERED: FLUTICASONE FUROATE 100MCG 14 PUFFS/INHALER INH STA (20:50)
[2022-06-08] MEDS: INSULIN ASPART PER UNIT CHARGE SC SCH (21:14)
[2022-06-08] MEDS: LANTUS PER UNIT CHARGE SQ SCH (21:15)
[2022-06-08] MEDS ORDERED: ACETAMINOPHEN 325 MG TAB PO PRN (22:58)
[2022-06-08] MEDS ORDERED: ALBUT/IPRATROP 3MG/0.5MG NEB 3 ML VIAL NEB PRN (22:58)
[2022-06-08] MEDS: ENOXAPARIN INJ 40 MG/0.4 ML SYR SQ SCH (23:33)
[2022-06-08] MEDS: METOPROLOL SUCC 50MG EXT REL TAB PO SCH (23:36)
[2022-06-08] MEDS: ALBUT/IPRATROP 3MG/0.5MG NEB 3 ML VIAL NEB SCH (23:45)
--- NOTE | 2022-06-09 00:45 | History & Physical Report ---
Date of Service June 08, 2022 Assessment & Plan (1) COPD with acute exacerbation: Plan: 81yo female with mild COPD, recent Covid-19 infection s/p Remdesivir and Dexamethasone treatment presenting with 3 days of progressive cough and dyspnea. Diffuse wheezing noted on exam. No infiltrate on CXR. Patient is POSITIVE for Covid-19 on PCR testing. Also tested POSITIVE on 05/11/22. Likely continued positive on PCR testing rather than true ongoing Covid-19 infection -Maintain isolation precautions for now -DuoNeb q 4 hours -Albuterol q 2 hours PRN -Continue Anoro Ellipta -Azithromycin -Solumedrol 40mg IV BID -Guaifenasin PRN -Chest PT (2) COVID-19: Plan: Maintain isolation precautions for now given +PCR testing and respiratory symptoms. Discontinuation of isolation tomorrow with assistance of Infection Control (3) Controlled type 2 diabetes with neuropathy: Plan: Overall well controlled. Last GepI7G=1.7 on 05/12/22. Patient is on Glipizide and Metformin outpatient -Hold oral agents -Lantus 5u BID with ISS -Continue to monitor (4) Hypertension: Plan: Chronic. Mildly elevated -Continue Enalapril -Continue Metoprolol Admission and Anticipated Discharge Date Admission Date: June 08, 2022 History of Present Illness Chief Complaint: Cough, SOB Primary Care Provider: Balbir Lira MD Deisy Back is a pleasant 81yo female with history of DM, COPD (mild airflow obstruction on Spirometry 06/03/22) presenting with cough productive for clear sputum, wheeze and SOB. Patient was admitted to [facility] from 05/09/22 - 05/17/22 with Covid-19, hypoxemia and bronchitis. She was treated with Remdesivir and Dexamethasone. Patient was discharged home on 05/17/22 with a Dexamethasone taper, Albuterol Nebs and Breo. No home oxygen required. She was seen by Pulmonary on 06/03/22 with complaint of hoarseness. Breo was discontinued and she was started on Anoro. Patient presents today with 3 days of cough, SOB and ongoing hoarseness. Her cough is productive for clear sputum. She denies fever, chills chest pain. She does feel short of breath and has some wheezing as well. She endorses some mild allergy symptoms as well like itchy eyes and rhinorrhea. In the ER she is afebrile, hypoxic with saturation of 87% on room air. She was placed on supplemental O2 by NC 2L with adequate oxygenation - now 96%. ER Course: NSS x 500mL Solumedrol 40mg Tessalon 100mg Albuterol 2.5mg neb Allergies Allergy/AdvReac Type Severity Reaction Status Date / Time gabapentin AdvReac Unknown Confusion Verified 06/08/22 18:01 morphine AdvReac Unknown Unknown Verified 06/08/22 18:01 Home Medications Medication Instructions Recorded Confirmed Type cholecalciferol (vitamin D3) 25 1,000 units PO DAILY #30 caps 09/07/18 06/08/22 Rx mcg (1,000 unit) capsule cyanocobalamin (vitamin B-12) 100 200 mcg PO BID #30 tabs 09/07/18 06/08/22 History mcg tablet glipizide 5 mg tablet, extended 5 mg PO DAILY #90 tabs 04/25/22 06/08/22 Rx release 24 hr blood sugar diagnostic (OneTouch #100 ea 04/29/22 06/08/22 Rx Verio test strips) metoprolol succinate 100 mg 100 mg PO HS 05/11/22 06/08/22 History tablet,extended release 24 hr nebulizers #1 ea 05/15/22 06/08/22 Rx albuterol sulfate 90 mcg/actuation 2 puffs inhalation Q6H PRN 05/17/22 06/08/22 Rx aerosol inhaler cough/wheeze/shortness of breath #1 inhaler benzonatate 100 mg capsule 100 mg PO TID PRN cough #20 caps 05/17/22 06/08/22 Rx ipratropium 0.5 mg-albuterol 3 mg 3 ml NEB Q6H PRN 05/17/22 06/08/22 Rx (2.5 mg base)/3 mL nebulization cough/wheezing/shortness of breath soln #1 box benazepril 20 mg tablet 20 mg PO DAILY #90 tabs 05/28/22 06/08/22 Rx metformin 1,000 mg tablet 1,000 mg PO BID #180 tabs 05/28/22 06/08/22 Rx umeclidinium 62.5 mcg-vilanterol 1 inh inhalation DAILY #60 ea 06/03/22 06/08/22 Rx 25 mcg/actuation powdr for inhalation (Anoro Ellipta) Past Med/Surg History Medical History (Updated 06/09/22 @ 01:12 by Skye Kline DO) Chronic obstructive pulmonary disease Mild obstructive disease - Sprirometry 06/03/22 Controlled type 2 diabetes with neuropathy Diabetic nephropathy Diabetic peripheral neuropathy associated with type 2 diabetes mellitus Essential hypertriglyceridemia Fall, accidental Hip fracture Internal hemorrhoids Low back pain Osteopenia Seborrheic dermatitis Sensorineural hearing loss (SNHL) of both ears Stress incontinence in female URI (upper respiratory infection) Surgical History History of back surgery History of removal of cyst Hx of tonsillectomy S/P appendectomy Family History Father Emphysema of lung Sister Breast cancer Denies family history of Ovarian cancer Prostate cancer Myocardial infarction Colorectal cancer Social History Smoking Status: Former smoker Tobacco Type: Cigarettes Age Started Using Tobacco: 17; Age Quit Using Tobacco: 71; packs per day: 0.5; Second Hand Exposure: No; Do You Dip or Chew Tobacco: No; Tobacco Cessation Education Requested by Patient: No Hx Alcohol Use: No Hx Substance Use: No Preferred Language: Norwegian Communication Ability: Effective Oncology Rep Required: No Beliefs That Will Affect Care: None marital status: Current Living Situation: Family Current Living Situation Comment: patient, and son current occupational status: retired Other Information That Helps Us Care for You: No Feels Safe at Home: Yes Safety Concerns: Feels Safe At This Time Childhood Exposure to Second-Hand Smoke: Yes Dental Care, Regularly: Yes Physical Activity Frequency: 1-2 Times per Week Seatbelt Use: always Sunscreen Use: Yes Assistive Devices: Cane and Walker Review of Systems Review of Systems: All systems reviewed & are unremarkable except as noted in HPI & below Physical Exam Physical Exam: General: patient resting comfortably, NAD, non-toxic in appearance, AA&O x 4 Skin: warm, dry, intact, no rashes or lesions HEENT: NC/AT, PERRL, EOMI, anicteric sclera, conjunctiva without injection, external ear normal to inspection and nontender, nares patent, moist mucus membranes, dentition intact, no oropharyngeal lesions, neck supple, trachea midline, no LAD, no thyromegaly, no JVD Heart: +S1/S2, regular, no m/r/g Lungs: equal air entry bilaterally, no rales/rhonchi, diffuse end-expiratory wheezing Abd: +BS, soft, NT/ND, no masses/organomegaly/ascites Ext: warm, 2+ pulses in UE/LE bilaterally, no clubbing/cyanosis or edema Neuro: nonfocal, patient AA&O x 4, speech intact, no facial droop, moving all extremities on command with equal strength 5/5 Results & Data Results & Data Vital Signs (Past 12 Hours) Vital Signs Temp Pulse Pulse Pulse Resp BP BP 06/08/22 23:45 92 H 18 06/08/22 23:03 06/08/22 23:03 36.7 C 90 18 06/08/22 21:34 86 22 130/78 06/08/22 20:08 06/08/22 20:08 06/08/22 19:56 91 H 24 126/76 06/08/22 19:54 06/08/22 18:01 102 H 06/08/22 17:34 36.1 C L 112 H 20 143/79 H BP Pulse Ox O2 Del Method O2 Flow Rate 06/08/22 23:45 96 Nasal Cannula 2 06/08/22 23:03 Nasal Cannula 06/08/22 23:03 149/82 H 94 Nasal Cannula 1 06/08/22 21:34 93 Nasal Cannula 1 06/08/22 20:08 94 Nasal Cannula 1 06/08/22 20:08 87 L Room Air 06/08/22 19:56 90 Room Air 06/08/22 19:54 91 Room Air 06/08/22 18:01 06/08/22 17:34 94 Room Air Laboratory Results Laboratory Results WBC 7.35 K/ul (4.8-10.8) 06/08/22 18:11 RBC 4.93 M/uL (4.20-5.40) 06/08/22 18:11 Hgb 15.0 g/dl (12.0-16.0) 06/08/22 18:11 Hct 42.7 % (37.0-47.0) 06/08/22 18:11 MCV 86.6 fL (80.0-100.0) 06/08/22 18:11 MCH 30.4 pg (25.0-34.0) 06/08/22 18:11 MCHC 35.1 g/dL (32.0-36.0) 06/08/22 18:11 RDW Std Deviation 43.8 fL (36.4-46.3) 06/08/22 18:11 RDW Coeff of Latasha 14.1 % (11.5-14.5) 06/08/22 18:11 Plt Count 251 K/uL (130-400) 06/08/22 18:11 MPV 10.6 fL (9.4-12.4) 06/08/22 18:11 Immature Gran % (Auto) 0.4 % 06/08/22 18:11 Neut % (Auto) 66.2 % 06/08/22 18:11 Lymph % (Auto) 19.0 % 06/08/22 18:11 [place] % (Auto) 10.1 % 06/08/22 18:11 Eos % (Auto) 3.8 % 06/08/22 18:11 Baso % (Auto) 0.5 % 06/08/22 18:11 Neut # (Auto) 4.86 K/uL (1.40-6.50) 06/08/22 18:11 Lymph # (Auto) 1.40 K/uL (1.2-3.4) 06/08/22 18:11 [place] # (Auto) 0.74 K/uL (0.11-0.59) H 06/08/22 18:11 Eos # (Auto) 0.28 K/uL (0-0.50) 06/08/22 18:11 Baso # (Auto) 0.04 K/uL (0-0.2) 06/08/22 18:11 Immature Gran # (Auto) 0.03 K/uL (0.01-0.20) 06/08/22 18:11 PT 11.4 Seconds (9.0-12.0) 06/08/22 18:11 INR 1.0 (0.9-1.1) 06/08/22 18:11 APTT 25.6 Seconds (21.0-31.0) 06/08/22 18:11 PTT Ratio 0.9 06/08/22 18:11 Sodium 138 mmol/L (136-145) 06/08/22 18:11 Potassium 3.7 mmol/L (3.5-5.1) 06/08/22 18:11 Chloride 102 mmol/L (98-107) 06/08/22 18:11 Carbon Dioxide 30 mmol/L (21-32) 06/08/22 18:11 Anion Gap 6 (3-11) 06/08/22 18:11 BUN 15 mg/dl (6-23) 06/08/22 18:11 Creatinine 0.98 mg/dl (0.6-1.2) 06/08/22 18:11 Est Cr Clr Drug Dosing 41.6 ml/min 06/08/22 18:11 Est GFR ( Amer) 62.7 ml/min 06/08/22 18:11 Est GFR (Non-Af Amer) 54.1 ml/min 06/08/22 18:11 BUN/Creatinine Ratio 15.3 (10-20) 06/08/22 18:11 Glucose 161 mg/dl (70-99(Fasting)) H 06/08/22 18:11 POC Glucose 189 mg/dl (70-99) H 06/08/22 23:04 Calcium 9.8 mg/dl (8.6-10.3) 06/08/22 18:11 Total Bilirubin 0.7 mg/dl (0.2-1.0) 06/08/22 18:11 AST 12 U/L (13-39) L 06/08/22 18:11 ALT 10 U/L (7-52) 06/08/22 18:11 Alkaline Phosphatase 83 U/L (34-104) 06/08/22 18:11 Troponin I High Sens 8.2 pg/ml (0-14) 06/08/22 18:11 Total Protein 6.9 gm/dl (6.0-8.3) 06/08/22 18:11 Albumin 3.8 gm/dl (3.4-5.0) 06/08/22 18:11 Globulin 3.1 gm/dl (2.5-4.0) 06/08/22 18:11 Albumin/Globulin Ratio 1.2 (0.9-2) 06/08/22 18:11 Procalcitonin < 0.05 ng/ml (0-0.5) 06/08/22 18:12 Adenovirus (PCR) Not Detected (NotDetected) 06/08/22 19:01 B. pertussis DNA (PCR) Not Detected (NotDetected) 06/08/22 19:01 B.parapertussis DNA PCR Not Detected (NotDetected) 06/08/22 19:01 C. pneumoniae DNA (PCR) Not Detected (NotDetected) 06/08/22 19:01 Coronavirus OC43 (PCR) Not Detected (NotDetected) 06/08/22 19:01 Coronavirus HKU1 (PCR) Not Detected (NotDetected) 06/08/22 19:01 Coronavirus 229E (PCR) Not Detected (NotDetected) 06/08/22 19:01 SARS-CoV-2 (PCR) DETECTED (NotDetected) A* 06/08/22 19:01 Coronavirus NL63 (PCR) Not Detected (NotDetected) 06/08/22 19:01 Human Metapneumovir PCR Not Detected (NotDetected) 06/08/22 19:01 Influenza Type A (PCR) Not Detected (NotDetected) 06/08/22 19:01 Influenza Type B (PCR) Not Detected (NotDetected) 06/08/22 19:01 M. pneumoniae (PCR) Not Detected (NotDetected) 06/08/22 19:01 Parainfluenza 1 (PCR) Not Detected (NotDetected) 06/08/22 19:01 Parainfluenza 2 (PCR) Not Detected (NotDetected) 06/08/22 19:01 Parainfluenza 3 (PCR) Not Detected (NotDetected) 06/08/22 19:01 Parainfluenza 4 (PCR) Not Detected (NotDetected) 06/08/22 19:01 RSV (PCR) Not Detected (NotDetected) 06/08/22 19:01 Entero/Rhino (PCR) Not Detected (NotDetected) 06/08/22 19:01 Impressions Chest X-Ray 06/08/22 17:37 XR chest 1V not portable HISTORY: 81 years-old Female Chest pain, nonspecific COMPARISON: 05/16/2022 TECHNIQUE: AP view of the chest FINDINGS: Cardiac silhouette is enlarged. Hiatal hernia. Atherosclerosis of the aorta. Skin folds project over the chest. No pneumothorax, pleural effusion, airspace consolidation or pulmonary edema. No chronic fracture of the anterior right third rib. Degenerative changes of the shoulders and spine. IMPRESSION: 1. Cardiomegaly without acute process. 2. Hiatal hernia. ACT 112: Negative or not required by law. The above report was generated using voice recognition software. It may contain grammatical, syntax or spelling errors. Electronically signed by: Robin Gamino M.D. 06/08/2022 6:25 PM ECG Additional Comments: Per my interpretation - EKG shows ST at 106bpm, LAFB, no acute ischemic changes Code Status & VTE Plan VTE Prophylaxis Plan VTE Prophylaxis will be ordered: Yes PG Care Time/CCT Total # of Minutes Spent Total Time Spent with Patient: Total time spent is greater than 50% in coordination of care (as documented) at patient's floor/unit and/or counseling patient: Coding Level of Care Code 42093 INT INP/OBS CARE 2/55MIN Diagnoses COPD with acute exacerbation J44.1 COVID-19 U07.1 Controlled type 2 diabetes with neuropathy E11.40 Hypertension I10
[2022-06-09] MEDS ORDERED: ALBUTEROL 0.083% NEBU SOLN 3 ML VIAL NEB PRN (01:21)
[2022-06-09] MEDS: ALBUT/IPRATROP 3MG/0.5MG NEB 3 ML VIAL NEB SCH ×6 (03:30→23:17)
[2022-06-09 07:00] LABS: Basophils # (auto) 0.01 K/uL (0-0.2); Basophils % (auto) 0.2 %; Hematocrit (blood only) 43.3 % (37.0-47.0); Hemoglobin 14.8 g/dl (12.0-16.0); Immature Granulocytes # (auto) 0.01 K/uL (0.01-0.20); Immature Granulocytes % (auto) 0.2 %; Lymphocytes # (auto) 1.05 K/uL (1.2-3.4); Lymphocytes % (auto) 17.7 %; Mean Corpuscular Hemoglobin 30.3 pg (25.0-34.0); Mean Corpuscular Hgb Conc 34.2 g/dL (32.0-36.0); Mean Corpuscular Volume 88.7 fL (80.0-100.0); Mean Platelet Volume 10.6 fL (9.4-12.4); Monocytes # (auto) 0.06 K/uL (0.11-0.59); Neutrophils # (auto) 4.81 K/uL (1.40-6.50); Neutrophils % (auto) 80.9 %; Platelet Count 250 K/uL (130-400); RDW Coefficient of Variation 13.8 % (11.5-14.5); RDW Standard Deviation 44.8 fL (36.4-46.3); Red Blood Count 4.88 M/uL (4.20-5.40); White Blood Count 5.94 K/ul (4.8-10.8)
[2022-06-09 07:23] LABS: Prothrombin Time 11.4 Seconds (9.0-12.0)
[2022-06-09 07:30] LABS: BUN Creatinine Ratio 26.9 (10-20); Calcium 9.1 mg/dl (8.6-10.3); Est GFR (African American) 82.6 ml/min; Est GFR (Non-African American) 71.3 ml/min; Potassium 3.8 mmol/L (3.5-5.1)
[2022-06-09] MEDS: INSULIN ASPART PER UNIT CHARGE SC SCH ×4 (08:30→21:41)
[2022-06-09] MEDS: LANTUS PER UNIT CHARGE SQ SCH ×2 (08:32→21:41)
[2022-06-09] MEDS: methylPREDNISolone 40 MG in SYRINGE 0 ML IV SCH ×2 (08:40→21:42)
[2022-06-09] MEDS: AZITHROMYCIN 500 MG in DEXTROSE 5% 250 ML IV SCH (08:42)
[2022-06-09] MEDS: ENALAPRIL MALEATE 10 MG TAB PO SCH (08:49)
[2022-06-09] MEDS: UMECLIDINIUM/VILANTEROL 62.5/25MCG 7 PUFFS/INHALER INH SCH (08:51)
[2022-06-09] MEDS ORDERED: FLUTICASONE FUROATE 100MCG 14 PUFFS/INHALER INH SCH (09:00)
--- NOTE | 2022-06-09 12:41 | Electrocardiogram Report ---
Test Reason : Blood Pressure : / mmHG Vent. 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 rate has increased BY 38 BPM QRS axis Shifted left Confirmed by Trevin Mohr ([id number]) on 06/09/2022 12:40:53 PM Referred By: REFERRED SELF Confirmed By:Trevin Mohr
--- NOTE | 2022-06-09 14:05 | Hospitalist Progress Note ---
Date of Service June 09, 2022 Assessment & Plan (1) COPD with acute exacerbation: Plan: 81yo female with mild COPD, recent Covid-19 infection s/p Remdesivir and Dexamethasone treatment presenting with 3 days of progressive cough and dyspnea. Diffuse wheezing noted on exam. No infiltrate on CXR. Patient is POSITIVE for Covid-19 on PCR testing. Also tested POSITIVE on 05/11/22. Likely continued positive on PCR testing rather than true ongoing Covid-19 infection Improving now with IV steroids and azithro With acute respiratory failure with hypoxia now resolving--> weaned to room air at rest -ok to dc isolation precautions as per my d/w IC -continue DuoNeb q 4 hours -Albuterol q 2 hours PRN -Continue Anoro Ellipta -continue Azithromycin -continue Solumedrol 40mg IV BID -Guaifenasin PRN -Chest PT (2) COVID-19: Plan: as above (3) Controlled type 2 diabetes with neuropathy: Plan: Overall well controlled. Last IpqW2W=1.7 on 05/12/22. Patient is on Glipizide and Metformin outpatient -Hold oral agents With hyperglycemia here from steroids -increase Lantus to 10u BID and tighten down Novolog to 35 CF and 12 CR -Continue to monitor (4) Hypertension: Plan: Chronic. BPs controlled -Continue Enalapril -Continue Metoprolol Plan Dispo-improving, stay one more day and if continues to improve, dc to home tomorrow, 2 step walk test prior to discharge DVT proph-Lovenox Admission and Anticipated Discharge Date Admission Date: June 08, 2022 Subjective Feeling better, not much cough, no CP. Has been ambulating round the room without difficulty or dyspnea.. Took her O2 off on her own nd POx 92% on R when I spot checked her. No further nausea, is eating, had a normal BM today. Physical Exam Constitutional: WD/WN, vitals as above Neck: trachea midline, no thyromegaly Respiratory: normal respiratory effort, lungs clear to auscultation Cardiovascular: RRR, no murmur, no edema Chest (Breasts): Chest: normal inspection of chest Gastrointestinal (Abdomen): normal bowel sounds, soft, nontender, no hepatosplenomegaly Musculoskeletal: Extremities: extremities normal to inspection; no cyanosis and no clubbing Skin: no rashes, warm and dry Neurologic: moves all extremities and awake; no focal motor deficits Psychiatric: A+Ox3, euthymic affect Lymphatic: no lymphedema Results & Data Results & Data Vital Signs (Past 12 Hours) Vital Signs Temp Pulse Resp BP Pulse Ox O2 Del Method 06/09/22 10:43 79 20 91 Room Air 06/09/22 07:53 78 18 90 Room Air 06/09/22 07:28 Room Air 06/09/22 07:25 36.6 C 79 18 127/74 94 Room Air Laboratory Results CBC, BMP reviewed PG Care Time/CCT Total # of Minutes Spent Total Time Spent with Patient: Total time spent is greater than 50% in coordination of care (as documented) at patient's floor/unit and/or counseling patient: Coding Level of Care Code 36608 SUB INP/OBS CARE 2/35MIN Diagnoses COPD with acute exacerbation J44.1 COVID-19 U07.1 Controlled type 2 diabetes with neuropathy E11.40 Hypertension I10
[2022-06-09] MEDS: METOPROLOL SUCC 50MG EXT REL TAB PO SCH (21:46)
[2022-06-09] MEDS: ENOXAPARIN INJ 40 MG/0.4 ML SYR SQ SCH (22:44)
[2022-06-10] MEDS: ALBUT/IPRATROP 3MG/0.5MG NEB 3 ML VIAL NEB SCH ×3 (03:30→11:31)
[2022-06-10] MEDS: AZITHROMYCIN 500 MG in DEXTROSE 5% 250 ML IV SCH (08:09)
[2022-06-10] MEDS: UMECLIDINIUM/VILANTEROL 62.5/25MCG 7 PUFFS/INHALER INH SCH (08:13)
[2022-06-10] MEDS: INSULIN ASPART PER UNIT CHARGE SC SCH ×2 (08:14→12:23)
[2022-06-10] MEDS: LANTUS PER UNIT CHARGE SQ SCH (08:17)
[2022-06-10] MEDS: ENALAPRIL MALEATE 10 MG TAB PO SCH (08:23)
[2022-06-10] MEDS: methylPREDNISolone 40 MG in SYRINGE 0 ML IV SCH (08:36)
--- NOTE | 2022-06-10 13:50 | Discharge Summary ---
Date of Service June 10, 2022 Admission HPI Per Admitting Provider Deisy Back is a pleasant 81yo female with history of DM, COPD (mild airflow obstruction on Spirometry 06/03/22) presenting with cough productive for clear sputum, wheeze and SOB. Patient was admitted to [facility] from 05/09/22 - 05/17/22 with Covid-19, hypoxemia and bronchitis. She was treated with Remdesivir and Dexamethasone. Patient was discharged home on 05/17/22 with a Dexamethasone taper, Albuterol Nebs and Breo. No home oxygen required. She was seen by Pulmonary on 06/03/22 with complaint of hoarseness. Breo was discontinued and she was started on Anoro. Patient presents today with 3 days of cough, SOB and ongoing hoarseness. Her cough is productive for clear sputum. She denies fever, chills chest pain. She does feel short of breath and has some wheezing as well. She endorses some mild allergy symptoms as well like itchy eyes and rhinorrhea. In the ER she is afebrile, hypoxic with saturation of 87% on room air. She was placed on supplemental O2 by NC 2L with adequate oxygenation - now 96%. ER Course: NSS x 500mL Solumedrol 40mg Tessalon 100mg Albuterol 2.5mg neb Principal Diagnosis COPD exacerbation Recent COVID-19 infection Discharge Exam Constitutional WD/WN, vitals as above Neck trachea midline, no thyromegaly Respiratory normal respiratory effort and + cough Auscultation: + wheezes (end expiratory, occasional); no crackles and no rhonchi Cardiovascular RRR, no murmur, no edema Chest (Breasts) Chest: normal inspection of chest Gastrointestinal (Abdomen) normal bowel sounds, soft, nontender, no hepatosplenomegaly Musculoskeletal Extremities: extremities normal to inspection; no cyanosis and no clubbing Skin no rashes, warm and dry Neurologic moves all extremities and awake; no focal motor deficits Psychiatric A+Ox3, euthymic affect Lymphatic no lymphedema Discharge Data Allergies Allergy/AdvReac Type Severity Reaction Status Date / Time gabapentin AdvReac Unknown Confusion Verified 06/08/22 18:01 morphine AdvReac Unknown Unknown Verified 06/08/22 18:01 Consultations 06/08/22 20:15 ED Decision to Admit Stat Hospital Course (1) COPD with acute exacerbation: 81yo female with mild COPD, recent Covid-19 infection s/p Remdesivir and Dexamethasone treatment presenting with 3 days of progressive cough and dyspnea. Diffuse wheezing noted on exam. No infiltrate on CXR. Patient is POSITIVE for Covid-19 on PCR testing. Also tested POSITIVE on 05/11/22. Likely continued positive on PCR testing rather than true ongoing Covid-19 infection Improving now with IV steroids and azithro With acute respiratory failure with hypoxia now resolved--> weaned to room air at rest and with exertion on 2 step walk test -Albuterol q 2 hours PRN and Rxd refill of Duonebs for at home use -Continue Anoro Ellipta -continue Azithromycin to finish out 5 day course after discharge -convert to po dexamethasone for 5 more days after discharge -Guaifenesin PRN (2) COVID-19: as above (3) Controlled type 2 diabetes with neuropathy: Overall well controlled. Last AunT3X=4.7 on 05/12/22. Patient is on Glipizide and Metformin outpatient With hyperglycemia here from steroids received insulin here but not needed at home as steroids are temporary restart home glipizide and metformin on discharge call PCP if glucose> 300 and could increase glipizide to bid if needed (4) Hypertension: Chronic. BPs controlled -Continue Enalapril -Continue Metoprolol Plan Dispo-much improved, stable for dc to home DVT proph-Lovenox Total Time Total Time Spent Total Time Spent (In Minutes): 35 min Discharge Plan Discharge Items Patient Disposition: Home - Self-Care Reason For Visit: SOB, COUGH Discharge Diagnosis: COPD exacerbation Recent COVID-19 infection Condition on Discharge: Good Activity: As commented below Bathing: No limitations Exercise/Sports: Gradually increase as tolerated Non-emergency contact: Primary Care Provider Call non-emergency contact if: you have any medication questions and your symptoms worsen Follow-up/Referrals: Balbir Lira MD [Primary Care Provider] - 06/17/22 4:00 pm (APPOINTMENT WITH Steph NAQVI MD) Diet: Carb Consistent or DM2 Addtl Attending Provider Instructions: Please finish out 5 more days of the steroid pill called dexamethasone once daily for your wheezing and cough. You can continue to use your nebulizer machine four times a day as well. You will need 2 more days of the antibiotic pill called azithromycin. Your blood sugars will be elevated while on the steroid pill but should improve after the course is complete. If your blood sugar goes over 300, please call your doctor for advice on what to do. You do not need insulin at home at this point. Pending Studies at Discharge: No Stand-Alone Forms: My [facility], Smoking Cessation Medications and DC Order Prescriptions: New azithromycin 250 mg tablet 250 mg PO DAILY Qty: 2 0RF dexamethasone 6 mg tablet 6 mg PO DAILY Qty: 5 0RF Continued glipizide 5 mg tablet extended release 24hr 5 mg PO DAILY Qty: 90 3RF Hold Instructions: low A1C Rx Instructions: before dinner (DME) OneTouch Verio test strips Strip See Rx Instructions .ROUTE .MEDSUPPLY Qty: 100 3RF Rx Instructions: Test twice daily. metformin 1,000 mg tablet 1,000 mg PO BID Qty: 180 1RF benazepril 20 mg tablet 20 mg PO DAILY Qty: 90 1RF cyanocobalamin (vitamin B-12) 100 mcg tablet 200 mcg PO BID Qty: 30 cholecalciferol (vitamin D3) 1,000 unit capsule 1,000 units PO DAILY Qty: 30 0RF Anoro Ellipta 62.5-25 mcg/actuation blister with device 1 inh inhalation DAILY Qty: 60 3RF metoprolol succinate 100 mg tablet extended release 24 hr 100 mg PO HS (DME) nebulizers Misc See Rx Instructions .Route Qty: 1 0RF Rx Instructions: As directed benzonatate 100 mg Capsule 100 mg PO TID PRN (Reason: cough) Qty: 20 0RF albuterol sulfate 90 mcg/actuation HFA aerosol inhaler 2 puffs inhalation Q6H PRN (Reason: cough/wheeze/shortness of breath) Qty: 1 0RF Rx Instructions: use with spacer device ipratropium-albuterol 0.5 mg-3 mg(2.5 mg base)/3 mL Solution For Nebulization 3 ml NEB Q6H PRN (Reason: cough/wheezing/shortness of breath) Qty: 1 0RF Discharge Orders: Discharge Order (Routine); Ordered 06/10/22 Ordered By: Alla June Admission Data Admit Date/Time: 06/08/22 20:25 Attending Provider: Alla June Admit Provider: Christopher Potter Primary Care Provider: Balbir Lira V. Other Providers: Skye Kline Coding Level of Care Code 18915 INP/OBS DISCH >30 MIN Diagnoses COPD with acute exacerbation J44.1 COVID-19 U07.1 Controlled type 2 diabetes with neuropathy E11.40 Hypertension I10
== END 2022-06-10 14:14 | disposition home or self-care (01) | DRG 190 ==
LOC: ED 17:30 → SUATTDRO 20:25 → 3E 20:25

== ENCOUNTER 2023-02-01 11:34 | Inpatient (IN) ==
[2023-02-01 12:54] LABS: Hematocrit (blood only) 48.9 % (37.0-47.0); Hemoglobin 16.4 g/dl (12.0-16.0); Mean Corpuscular Hemoglobin 30.5 pg (25.0-34.0); Mean Corpuscular Hgb Conc 33.5 g/dL (32.0-36.0); Mean Corpuscular Volume 90.9 fL (80.0-100.0); Platelet Count 249 K/uL (130-400); RDW Coefficient of Variation 13.2 % (11.5-14.5); RDW Standard Deviation 43.2 fL (36.4-46.3); Red Blood Count 5.38 M/uL (4.20-5.40); White Blood Count 23.28 K/ul (4.8-10.8)
[2023-02-01] MEDS ORDERED: ALBUTEROL 0.083% NEBU SOLN 3 ML VIAL NEB STA (13:03)
--- NOTE | 2023-02-01 13:03 | Emergency Department Note ---
Impression & Plan Hypoxic, COVID-19, Shortness of breath ED Provider Note NAME: TABATHA SIM AGE: 82 SEX: F : 1940 ARRIVES VIA: Walk-In INFORMANT: Patient ED PROVIDER(S): Cooper Canas DO CHIEF COMPLAINT: shortness of breath HPI: Patient is an 82-year-old female who presents ER for cough and congestion. She notes her symptoms have been present since Thanks. They have been getting worse. She notes that she now has pain on the left upper chest which has been present for the past week. It is worse when you push on it. She notes that she has been bringing up yellow phlegm with her cough. Does have congestion. No fevers. No other exacerbating or remitting factors. ADDITIONAL HISTORY OBTAINED: Per HPI Chronic Medical/Social Conditions Affecting Care: Per HPI PAST MEDICAL HISTORY:See Below PAST SURGICAL HISTORY:See Below FAMILY HISTORY:See Below SOCIAL HISTORY:See Below HOME MEDICATIONS:See Below ALLERGIES:See Below VITALS:See Below PHYSICAL EXAMINATION: GENERAL: Sitting up in bed, alert, with intermittent cough, slightly congested EYE EXAM: normal conjunctiva. OROPHARYNX: no exudate, no erythema, lips, buccal mucosa, and tongue normal and mucous membranes are moist NECK: supple, no nuchal rigidity, no adenopathy, non-tender LUNGS: Wheezing bilaterally. Normal chest wall mechanics HEART: no murmurs, S1 normal and S2 normal ABDOMEN: abdomen soft, non-tender, normo-active bowel sounds, no masses, no rebound or guarding. UPPER EXTREMITIES: upper extremities are grossly normal. LOWER EXTREMITIES: No pitting edema. NEURO EXAM: Normal sensorium, cranial nerves II-XII grossly intact, normal speech, no gross weakness of arms, no gross weakness of legs. MEDICAL DECISION MAKING: Patient is an 82-year-old female who presents ER for above-stated complaint. IV was established labs obtained. Labs show leukocytosis of 23,000. No significant anemia. INR unremarkable. BMP with elevated BSG 418. Patient was given IV fluids and 5 units of IV insulin. This trended down to 220. Troponin was negative. Pro-Pedro was normal. UA was clean. Patient was COVID-positive. Chest x-ray was unremarkable. Was covered with IV Rocephin. Updated bedside given neb treatments. She is not on any steroids. She did intermittently drop her pulse ox down to 88% but was not consistent. Do feel this warrants observation and discussed with the hospitalist. Patient was given Decadron. Consults/Care Managements Discussions: Per MDM Triage Nursing notes reviewed. Limited review of prior medical records performed Vital Signs: reviewed and remarkable for tachypneic Differential diagnosis: Differential diagnoses includes but is not limited to pneumonia, bronchitis, COPD/Asthma exacerbation, pneumothorax, pulmonary embolism, congestive heart failure, acute coronary syndrome ER treatment provided: See below Diagnostics interpreted by me include EKG and cardiac monitoring as listed below: -Cardiac Monitoring: An order was placed for continuous cardiac monitoring. The monitor shows a rate of 80 with sinus rhythm. -ECG: Sinus rhythm rate 86 Normal axis No PVCs QTc 428 -Laboratory studies:Interpreted by me as stated above in MDM and shown below. Imaging studies: Xrays: As interpreted by me: Portable AP upright 1 view of the chest shows no focal infiltrate CTs show: none Procedures:none Critical Care: None Past Med/Surg History Medical History (Updated 02/01/23 @ 18:14 by Cooper Canas DO) COVID-19 Skin lesion of foot Right calf pain Right leg swelling Right foot pain Wound of right foot Foot lesion Medication side effects Cellulitis of right foot Cough Post viral with associated hoarseness Hospital discharge follow-up Acute bronchitis Acute respiratory failure with hypoxia Degenerative arthritis of lumbar spine URI (upper respiratory infection) Hip fracture Chronic obstructive pulmonary disease Mild obstructive disease - Sprirometry 06/03/22 Controlled type 2 diabetes with neuropathy Diabetic nephropathy Diabetic peripheral neuropathy associated with type 2 diabetes mellitus Essential hypertriglyceridemia Fall, accidental Internal hemorrhoids Low back pain Osteopenia Seborrheic dermatitis Sensorineural hearing loss (SNHL) of both ears Stress incontinence in female Surgical History History of removal of cyst History of back surgery Hx of tonsillectomy S/P appendectomy Family History Father Emphysema of lung Sister Breast cancer Denies family history of Ovarian cancer Prostate cancer Myocardial infarction Colorectal cancer Social History Smoking Status: Never smoker Tobacco Type: Cigarettes Age Started Using Tobacco: 17; Age Quit Using Tobacco: 71; packs per day: 0.5; Second Hand Exposure: No; Do You Dip or Chew Tobacco: No; Hx Alcohol Use: No Hx Substance Use: No Preferred Language: Kazakh Communication Ability: Effective Shellfish Manager Required: No Beliefs That Will Affect Care: None marital status: Current Living Situation: Family Current Living Situation Comment: patient, and son 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 Feels Safe at Home: Yes Childhood Exposure to Second-Hand Smoke: Yes Diet: regular Dental Care, Regularly: Yes Physical Activity Frequency: 1-2 Times per Week Seatbelt Use: always Sunscreen Use: Yes Do you think of yourself as: straight/heterosexual Gender Identity: Female Assistive Devices: Cane, Nebulizer and Walker Allergies Allergies Allergy/AdvReac Type Severity Reaction Status Date / Time gabapentin AdvReac Unknown Confusion Verified 02/01/23 14:43 morphine AdvReac Unknown Unknown Verified 02/01/23 14:43 Home Meds Home Medications Medication Instructions Recorded Confirmed cyanocobalamin (vitamin B-12) 100 100 mcg PO BID #30 tabs 09/07/18 02/01/23 mcg tablet glipizide 5 mg tablet, extended 5 mg PO HS 08/30/22 02/01/23 release 24 hr amlodipine 10 mg tablet 10 mg PO QAM 02/01/23 02/01/23 atorvastatin 10 mg tablet 10 mg PO PM 02/01/23 02/01/23 benazepril 20 mg tablet 20 mg PO QAM 02/01/23 02/01/23 cholecalciferol (vitamin D3) 25 1,000 units PO QAM 02/01/23 02/01/23 mcg (1,000 unit) capsule furosemide 20 mg tablet (Lasix) 20 mg PO QAM 02/01/23 02/01/23 metoprolol succinate 100 mg 100 mg PO PM 02/01/23 02/01/23 tablet,extended release 24 hr Previous Rx's Medication Instructions Recorded blood sugar diagnostic (OneTouch #100 ea 04/29/22 Verio test strips) nebulizers #1 ea 05/15/22 ipratropium 0.5 mg-albuterol 3 mg 3 ml NEB Q6H PRN 06/10/22 (2.5 mg base)/3 mL nebulization cough/wheezing/shortness of breath soln #1 box albuterol sulfate 90 mcg/actuation 2 puff inhalation Q6H PRN 08/04/22 aerosol inhaler cough/wheeze/shortness of breath #1 inhaler metformin 1,000 mg tablet 1,000 mg PO BID #180 tabs 11/19/22 Results & Data (ED) Vital Signs Vital Signs - 24 hr 02/01/23 11:47 02/01/23 11:50 02/01/23 13:17 Temperature 36.9 C Temperature Source Temporal Artery Scan Pulse Rate 87 83 Pulse Rate from SpO2 Sensor 83 Respiratory Rate 24 16 Respiratory Effort / Characteristics Non-Labored Respiratory Depth Normal Blood Pressure 128/66 139/78 Blood Pressure Mean 86 98 Pulse Oximetry 95 100 Oxygen Delivery Method Room Air Room Air Oxygen Flow Rate Sepsis Recent Fever Within 48 Hours No Sepsis New/Unexplained Change in Mental Status No Sepsis Action Taken by Nursing No Action Required 02/01/23 13:19 02/01/23 13:30 02/01/23 14:01 Temperature Temperature Source Pulse Rate 79 79 93 H Pulse Rate from SpO2 Sensor 80 93 H Respiratory Rate 30 H 19 Respiratory Effort / Characteristics Respiratory Depth Blood Pressure 148/76 H 142/78 H Blood Pressure Mean 100 99 Pulse Oximetry 100 92 Oxygen Delivery Method Oxygen Flow Rate Sepsis Recent Fever Within 48 Hours Sepsis New/Unexplained Change in Mental Status Sepsis Action Taken by Nursing 02/01/23 14:30 02/01/23 15:00 02/01/23 16:03 Temperature Temperature Source Pulse Rate 86 81 84 Pulse Rate from SpO2 Sensor 84 Respiratory Rate 25 H 24 20 Respiratory Effort / Characteristics Respiratory Depth Blood Pressure 140/71 111/69 118/71 Blood Pressure Mean 94 83 86 Pulse Oximetry 92 94 95 Oxygen Delivery Method Room Air Room Air Oxygen Flow Rate Sepsis Recent Fever Within 48 Hours Sepsis New/Unexplained Change in Mental Status Sepsis Action Taken by Nursing 02/01/23 16:30 02/01/23 17:00 02/01/23 17:06 Temperature Temperature Source Pulse Rate 83 77 78 Pulse Rate from SpO2 Sensor Respiratory Rate 15 24 Respiratory Effort / Characteristics Respiratory Depth Blood Pressure 140/75 133/77 Blood Pressure Mean 96 95 Pulse Oximetry 93 92 Oxygen Delivery Method Room Air Room Air Oxygen Flow Rate Sepsis Recent Fever Within 48 Hours Sepsis New/Unexplained Change in Mental Status Sepsis Action Taken by Nursing 02/01/23 17:30 02/01/23 17:40 Temperature Temperature Source Pulse Rate 76 76 Pulse Rate from SpO2 Sensor Respiratory Rate 28 H 31 H Respiratory Effort / Characteristics Respiratory Depth Blood Pressure 125/73 Blood Pressure Mean 90 Pulse Oximetry 87 L 94 Oxygen Delivery Method Room Air Nasal Cannula Oxygen Flow Rate 2 Sepsis Recent Fever Within 48 Hours Sepsis New/Unexplained Change in Mental Status Sepsis Action Taken by Nursing Laboratory Data 02/01/23 12:02/01/23 12:29 Lab Results 02/01/23 02/01/23 02/01/23 Range/Units 12: 12: 15:05 WBC 23.28 H (4.8-10.8) K/ul RBC 5.38 (4.20-5.40) M/uL Hgb 16.4 H (12.0-16.0) g/dl Hct 48.9 H (37.0-47.0) % MCV 90.9 (80.0-100.0) fL MCH 30.5 (25.0-34.0) pg MCHC 33.5 (32.0-36.0) g/dL RDW Std Deviation 43.2 (36.4-46.3) fL RDW Coeff of Latasha 13.2 (11.5-14.5) % Plt Count 249 (130-400) K/uL MPV 11.0 (9.4-12.4) fL Immature Gran % (Auto) 0.7 % Neut % (Auto) 88.3 % Lymph % (Auto) 6.6 % [place] % (Auto) 4.1 % Eos % (Auto) 0.0 % Baso % (Auto) 0.3 % Neut # (Auto) 20.54 H (1.40-6.50) K/uL Lymph # (Auto) 1.53 (1.20-3.40) K/uL [place] # (Auto) 0.95 H (0.11-0.59) K/uL Eos # (Auto) 0.01 (0.00-0.50) K/uL Baso # (Auto) 0.08 (0.00-0.20) K/uL Immature Gran # (Auto) 0.17 (0.01-0.20) K/uL Toxic Vacuolation 1+ PT 11.7 (9.0-12.0) Seconds INR 1.1 (0.9-1.1) APTT 29 (21-31) Seconds PTT Ratio 1.0 Sodium 136 (136-145) mmol/L Potassium 4.2 (3.5-5.1) mmol/L Chloride 97 L (98-107) mmol/L Carbon Dioxide 30 (21-32) mmol/L Anion Gap 9 (3-11) BUN 17 (6-23) mg/dl Creatinine 0.93 (0.6-1.2) mg/dl Est Cr Clr Drug Dosing Not Reportable Est GFR ( Amer) 66.3 ml/min Est GFR (Non-Af Amer) 57.2 ml/min BUN/Creatinine Ratio 18.3 (10-20) Glucose 418 H* (70-99(Fasting)) mg/dl POC Glucose 229 H (70-99) mg/dl Calcium 9.3 (8.6-10.3) mg/dl Total Bilirubin 1.2 H (0.2-1.0) mg/dl AST 15 (13-39) U/L ALT 13 (7-52) U/L Alkaline Phosphatase 79 (34-104) U/L Troponin I High Sens 5.9 (0-14) pg/ml C-Reactive Protein 9.43 H (0-0.5) mg/dl Total Protein 7.2 (6.0-8.3) gm/dl Albumin 4.4 (3.4-5.0) gm/dl Globulin 2.8 (2.5-4.0) gm/dl Albumin/Globulin Ratio 1.6 (0.9-2) Procalcitonin 0.34 (0-0.5) ng/ml Urine Color Urine Appearance (Clear) Urine pH (4.5-7.5) Ur Specific [place] (1.000-1.030) Urine Protein (Negative) Urine Glucose (UA) (Negative) Urine Ketones (Negative) Urine Blood (Negative) Urine Nitrite (Negative) Urine Bilirubin (Negative) Urine Urobilinogen (Negative) Ur Leukocyte Esterase (Negative) SARS-CoV-2 (PCR) POSITIVE A* (Negative) Influenza Type A (PCR) Negative (Neg) Influenza Type B (PCR) Negative (Neg) RSV (RT-PCR) Negative (Neg) 02/01/23 Range/Units 16:00 WBC (4.8-10.8) K/ul RBC (4.20-5.40) M/uL Hgb (12.0-16.0) g/dl Hct (37.0-47.0) % MCV (80.0-100.0) fL MCH (25.0-34.0) pg MCHC (32.0-36.0) g/dL RDW Std Deviation (36.4-46.3) fL RDW Coeff of Latasha (11.5-14.5) % Plt Count (130-400) K/uL MPV (9.4-12.4) fL Immature Gran % (Auto) % Neut % (Auto) % Lymph % (Auto) % [place] % (Auto) % Eos % (Auto) % Baso % (Auto) % Neut # (Auto) (1.40-6.50) K/uL Lymph # (Auto) (1.20-3.40) K/uL [place] # (Auto) (0.11-0.59) K/uL Eos # (Auto) (0.00-0.50) K/uL Baso # (Auto) (0.00-0.20) K/uL Immature Gran # (Auto) (0.01-0.20) K/uL Toxic Vacuolation PT (9.0-12.0) Seconds INR (0.9-1.1) APTT (21-31) Seconds PTT Ratio Sodium (136-145) mmol/L Potassium (3.5-5.1) mmol/L Chloride (98-107) mmol/L Carbon Dioxide (21-32) mmol/L Anion Gap (3-11) BUN (6-23) mg/dl Creatinine (0.6-1.2) mg/dl Est Cr Clr Drug Dosing Est GFR ( Amer) ml/min Est GFR (Non-Af Amer) ml/min BUN/Creatinine Ratio (10-20) Glucose (70-99(Fasting)) mg/dl POC Glucose (70-99) mg/dl Calcium (8.6-10.3) mg/dl Total Bilirubin (0.2-1.0) mg/dl AST (13-39) U/L ALT (7-52) U/L Alkaline Phosphatase (34-104) U/L Troponin I High Sens (0-14) pg/ml C-Reactive Protein (0-0.5) mg/dl Total Protein (6.0-8.3) gm/dl Albumin (3.4-5.0) gm/dl Globulin (2.5-4.0) gm/dl Albumin/Globulin Ratio (0.9-2) Procalcitonin (0-0.5) ng/ml Urine Color Yellow Urine Appearance Clear (Clear) Urine pH 6.5 (4.5-7.5) Ur Specific [place] 1.010 (1.000-1.030) Urine Protein Negative (Negative) Urine Glucose (UA) 3+ H (Negative) Urine Ketones Negative (Negative) Urine Blood Negative (Negative) Urine Nitrite Negative (Negative) Urine Bilirubin Negative (Negative) Urine Urobilinogen Negative (Negative) Ur Leukocyte Esterase Negative (Negative) SARS-CoV-2 (PCR) (Negative) Influenza Type A (PCR) (Neg) Influenza Type B (PCR) (Neg) RSV (RT-PCR) (Neg) Administered Medications Discontinued Medications Albuterol (Albuterol 0.083% Nebu Soln 3 Ml Vial) 5 mg NEB NOW STA; Protocol Stop: 02/01/23 13:04 Last Admin: 02/01/23 13:14 Dose: 5 mg Documented By: JANELLE Dexamethasone Sodium Phosphate (DexamethasonePf 10 Mg/Ml Vial) 6 mg IV NOW ONE Stop: 02/01/23 14:20 Last Admin: 02/01/23 14:29 Dose: 6 mg Documented By: JANELLE Sodium Chloride (Nss) 1,000 mls @ 999 mls/hr IV .Q1H1M ONE Stop: 02/01/23 14:10 Last Infusion: 02/01/23 14:17 Dose: Infused Documented By: Admin: 02/01/23 13:16 Dose: 999 mls/hr Documented By: JANELLE Ceftriaxone Sodium (Rocephin) 2,000 mg in 50 mls @ 100 mls/hr IV NOW STA Stop: 02/01/23 14:48 Last Infusion: 02/01/23 15:07 Dose: Infused Documented By: Admin: 02/01/23 14:29 Dose: 100 mls/hr Documented By: JANELLE Insulin Human Regular (Novolin-R Insulin Per Unit Charge) 6 units IV NOW STA Stop: 02/01/23 14:20 Last Admin: 02/01/23 14:28 Dose: 6 units Documented By: JANELLE Co-signed By: CPB Methylprednisolone (Methylprednisolone 40 Mg/Ml Vial) 40 mg IV NOW STA Stop: 02/01/23 13:04 Last Admin: 02/01/23 13:14 Dose: Not Given Documented By: JANELLE Miscellaneous (Patient's Height &/Or Weight Needed) 1 each N/A Q2H MIGUEL A Stop: 03/03/23 15:59 Last Admin: 02/01/23 15:58 Dose: Not Given Documented By: [facility] Imaging Data Radiologist's Impression: Chest X-Ray 02/01/23 11:50 SINGLE VIEW CHEST CLINICAL HISTORY: Atypical chest pain. Cough FINDINGS: A PA chest radiograph is compared to study dated 01/17/2023. Correlation is made with chest CT dated 07/14/2019. There is a moderate to large hiatal hernia. The cardiomediastinal silhouette is unremarkable. Chronic interstitial thickening is similar to previous. There is bibasilar scarring/atelectasis. No airspace consolidation or pleural effusion is identified. No pneumothorax is seen. The skeletal structures are osteopenic. The bony thorax is grossly intact. Lumbar fusion hardware is partially imaged. IMPRESSION: 1. No active disease in the chest. 2. Hiatal hernia. ACT 112: Negative or not required by law. Electronically signed by: Josse Martinez M.D. 02/01/2023 1:08 PM Discharge Plan Visit Data Chief Complaint: Cough Stated Complaint: COUGH,SOB,DIZZY ED Provider: Cooper Canas Discharge Problem: Hypoxic, COVID-19, Shortness of breath Forms Stand Alone Forms: My [facility] [place] Online Prescriptions Prescriptions: No Action (DME) OneTouch Verio test strips Strip See Rx Instructions .ROUTE .MEDSUPPLY Qty: 100 3RF Rx Instructions: Test twice daily. metformin 1,000 mg tablet 1,000 mg PO BID Qty: 180 1RF cyanocobalamin (vitamin B-12) 100 mcg tablet 100 mcg PO BID Qty: 30 albuterol sulfate 90 mcg/actuation HFA aerosol inhaler 2 puff inhalation Q6H PRN (Reason: cough/wheeze/shortness of breath) Qty: 1 3RF Rx Instructions: use with spacer device (DME) nebulizers Misc See Rx Instructions .Route Qty: 1 0RF Rx Instructions: As directed ipratropium-albuterol 0.5 mg-3 mg(2.5 mg base)/3 mL Solution For Nebulization 3 ml NEB Q6H PRN (Reason: cough/wheezing/shortness of breath) Qty: 1 0RF glipizide 5 mg tablet extended release 24hr 5 mg PO HS Rx Instructions: before dinner atorvastatin 10 mg tablet 10 mg PO PM metoprolol succinate 100 mg tablet extended release 24 hr 100 mg PO PM amlodipine 10 mg tablet 10 mg PO QAM benazepril 20 mg tablet 20 mg PO QAM furosemide [Lasix] 20 mg tablet 20 mg PO QAM cholecalciferol (vitamin D3) 1,000 unit capsule 1,000 units PO QAM Referrals Referrals: Balbir Lira MD [Primary Care Provider] -
[2023-02-01 13:06] LABS: Alanine Aminotransferase 13 U/L (7-52); Albumin Globulin Ratio 1.6 (0.9-2); Albumin Level 4.4 gm/dl (3.4-5.0); Alkaline Phosphatase 79 U/L (34-104); Anion Gap 9 (3-11); Aspartate Aminotransferase 15 U/L (13-39); BUN Creatinine Ratio 18.3 (10-20); Bilirubin,Total 1.2 mg/dl (0.2-1.0); Blood Urea Nitrogen 17 mg/dl (6-23); Calcium 9.3 mg/dl (8.6-10.3); Carbon Dioxide 30 mmol/L (21-32); Chloride 97 mmol/L (98-107); Est GFR (African American) 66.3 ml/min; Est GFR (Non-African American) 57.2 ml/min; Globulin 2.8 gm/dl (2.5-4.0); Glucose 418 mg/dl (70-99(Fasting)); Potassium 4.2 mmol/L (3.5-5.1); Sodium 136 mmol/L (136-145); Total Protein 7.2 gm/dl (6.0-8.3)
[2023-02-01] MEDS ORDERED: SODIUM CHLORIDE 0.9% 1,000 ML IV ONE (13:10)
--- NOTE | 2023-02-01 13:10 | XRay Report ---
SINGLE VIEW CHEST CLINICAL HISTORY: Atypical chest pain. Cough FINDINGS: A PA chest radiograph is compared to study dated 01/17/2023. Correlation is made with chest CT dated 07/14/2019. There is a moderate to large hiatal hernia. The cardiomediastinal silhouette is u nremarkable. Chronic interstitial thickening is similar to previous. There is bibasilar scarring/atel ectasis. No airspace consolidation or pleural effusion is identified. No pneumothorax is seen. The sk eletal structures are osteopenic. The bony thorax is grossly intact. Lumbar fusion hardware is partia lly imaged. IMPRESSION: 1. No active disease in the chest. 2. Hiatal hernia. ACT 112: Negative or not required by law. Electronically signed by: Josse Martinez M.D. 02/01/2023 1:08 PM
[2023-02-01 13:13] LABS: Basophils # (auto) 0.08 K/uL (0.00-0.20); Basophils % (auto) 0.3 %; Eosinophils # (auto) 0.01 K/uL (0.00-0.50); Immature Granulocytes # (auto) 0.17 K/uL (0.01-0.20); Immature Granulocytes % (auto) 0.7 %; Lymphocytes # (auto) 1.53 K/uL (1.20-3.40); Lymphocytes % (auto) 6.6 %; Monocytes # (auto) 0.95 K/uL (0.11-0.59); Monocytes % (auto) 4.1 %; Neutrophils # (auto) 20.54 K/uL (1.40-6.50); Neutrophils % (auto) 88.3 %; Toxic Vacuolation 1+
[2023-02-01 13:14] LABS: INR 1.1 (0.9-1.1); Partial Thromboplastin Time 29 Seconds (21-31); Prothrombin Time 11.7 Seconds (9.0-12.0)
[2023-02-01 13:21] LABS: Influenza A virus by PCR Negative (Neg); Influenza B virus by PCR Negative (Neg); RSV by PCR Negative (Neg)
[2023-02-01 13:44] LABS: Troponin I High Sensitivity 5.9 pg/ml (0-14)
[2023-02-01 13:48] LABS: SARS CoV2 RNA(COVID-19) Ceph POSITIVE (Negative)
[2023-02-01] MEDS ORDERED: NovoLIN-R INSULIN PER UNIT CHARGE IV STA (14:19)
[2023-02-01] MEDS ORDERED: cefTRIAXone SODIUM 2,000 MG/50 ML BAG IV STA (14:19)
[2023-02-01] MEDS ORDERED: dexAMETHasone**PF** 10 MG/ML VIAL IV ONE (14:19)
--- NOTE | 2023-02-01 14:55 | History & Physical Report ---
Date of Service February 01, 2023 Assessment & Plan (1) COPD exacerbation: Plan: Mild wheezing on exam, main symptom of cough which improves with nebulizers DuoNebs QID Formoterol/budesonide nebs BID Dexamethasone 6 mg IV given in the ER, will continue Solu-Medrol at 40 mg IV daily (2) Left otitis media: Plan: Ceftriaxone given in the emergency room Start Augmentin tomorrow BID for 9 further days (3) COVID-19: Plan: Unclear how long she has had this illness therefore antivirals deferred Prior COVID infection in April 2022, vaccinated and boosted Guaifenesin BID She desires to hold off codeine cough syrup due to concerns for confusion with opiates therefore we will start with dextromethorphan as needed for cough (4) Controlled type 2 diabetes with neuropathy: Plan: HbA1c 6.8 in November. Hold home meds (glipizide, metformin) Consult pharmacy for glycemic control in setting of steroid use and hyperglycemia on admission (5) Hypoxic: Plan: In the setting of COPD recommend aiming O2 sats between 88 to 92% (6) Leukocytosis: Plan: With associated hyperglycemia resume the patient had recent steroids however she took the prednisone as prescribed right out her emergency room visit therefore would have finished the course on January 21 and she denies any further steroids. Procalcitonin negative however CRP elevated at 9.43 - this is consistent with COVID-19 however an elevated neutrophilia is not consistent with this diagnosis Follow-up blood cultures Urinalysis is unremarkable She has a left otitis media however doubtful this is driving her white blood count up to 23 Plan VTE prophylaxis - Lovenox 40 mg subcu daily Diet - type 2 diabetes Disposition - admit to med/surg Admission and Anticipated Discharge Date Admission Date: February 01, 2023 History of Present Illness Chief Complaint: Cough, shortness of breath, hypoxia Primary Care Provider: Balbir Lira MD Deisy Back is an 82-year-old female who presents to the ER with cough, dizziness, chest pain, shortness of breath. She was recently seen in the emergency room on January 17 with the same complaints. Cepheid PCR was negative for SARS-COV-2, RSV and influenza at that time. She was diagnosed with COPD exacerbation and treated with DuoNeb, Solu-Medrol 125 mg IV, azithromycin and Toradol. She was sent home with a prednisone dose of 40 mg p.o. daily for 4 days. She feels like she improved for the first few days but finds it difficult to give me a good timeline. She returns today as the coughing getting worse, she has chest pain while coughing and now her left ear aches. She reports no further steroids in the last week. She feels she has been getting progressively worse since 2 weeks ago. In the ER her SARS-COV-2 test is now positive, O2 sats dropped to 87% on room air at rest and this gets worse on exertion therefore her case was discussed with medicine for admission and ongoing management. Allergies Allergy/AdvReac Type Severity Reaction Status Date / Time gabapentin AdvReac Unknown Confusion Verified 02/01/23 14:43 morphine AdvReac Unknown Unknown Verified 02/01/23 14:43 Home Medications Medication Instructions Recorded Confirmed Type cyanocobalamin (vitamin B-12) 100 100 mcg PO BID #30 tabs 09/07/18 02/01/23 History mcg tablet blood sugar diagnostic (OneTouch #100 ea 04/29/22 12/09/22 Rx Verio test strips) nebulizers #1 ea 05/15/22 12/09/22 Rx ipratropium 0.5 mg-albuterol 3 mg 3 ml NEB Q6H PRN 06/10/22 02/01/23 Rx (2.5 mg base)/3 mL nebulization cough/wheezing/shortness of breath soln #1 box albuterol sulfate 90 mcg/actuation 2 puff inhalation Q6H PRN 08/04/22 02/01/23 Rx aerosol inhaler cough/wheeze/shortness of breath #1 inhaler glipizide 5 mg tablet, extended 5 mg PO HS 08/30/22 02/01/23 History release 24 hr metformin 1,000 mg tablet 1,000 mg PO BID #180 tabs 11/19/22 02/01/23 Rx amlodipine 10 mg tablet 10 mg PO QAM 02/01/23 02/01/23 History atorvastatin 10 mg tablet 10 mg PO PM 02/01/23 02/01/23 History benazepril 20 mg tablet 20 mg PO QAM 02/01/23 02/01/23 History cholecalciferol (vitamin D3) 25 1,000 units PO QAM 02/01/23 02/01/23 History mcg (1,000 unit) capsule furosemide 20 mg tablet (Lasix) 20 mg PO QAM 02/01/23 02/01/23 History metoprolol succinate 100 mg 100 mg PO PM 02/01/23 02/01/23 History tablet,extended release 24 hr Past Med/Surg History Medical History (Updated 02/02/23 @ 00:02 by Christopher Potter MD) COVID-19 Skin lesion of foot Right calf pain Right leg swelling Right foot pain Wound of right foot Foot lesion Medication side effects Cellulitis of right foot Cough Post viral with associated hoarseness Hospital discharge follow-up Acute bronchitis Acute respiratory failure with hypoxia Degenerative arthritis of lumbar spine URI (upper respiratory infection) Hip fracture Chronic obstructive pulmonary disease Mild obstructive disease - Sprirometry 06/03/22 Controlled type 2 diabetes with neuropathy Diabetic nephropathy Diabetic peripheral neuropathy associated with type 2 diabetes mellitus Essential hypertriglyceridemia Fall, accidental Internal hemorrhoids Low back pain Osteopenia Seborrheic dermatitis Sensorineural hearing loss (SNHL) of both ears Stress incontinence in female Surgical History History of removal of cyst History of back surgery Hx of tonsillectomy S/P appendectomy Family History Father Emphysema of lung Sister Breast cancer Denies family history of Ovarian cancer Prostate cancer Myocardial infarction Colorectal cancer Social History Smoking Status: Former smoker Tobacco Type: Cigarettes Age Started Using Tobacco: 17; Age Quit Using Tobacco: 71; packs per day: 0.5; Second Hand Exposure: No; Do You Dip or Chew Tobacco: No; Tobacco Cessation Education Requested by Patient: No Hx Alcohol Use: No Hx Substance Use: No Preferred Language: Greek Communication Ability: Effective [employer] Required: No Beliefs That Will Affect Care: None marital status: Current Living Situation: Spouse Current Living Situation Comment: patient, and son 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 Other Information That Helps Us Care for You: No Feels Safe at Home: Yes Safety Concerns: Feels Safe At This Time Childhood Exposure to Second-Hand Smoke: Yes Diet: regular Dental Care, Regularly: Yes Physical Activity Frequency: 1-2 Times per Week Seatbelt Use: always Sunscreen Use: Yes Do you think of yourself as: straight/heterosexual Gender Identity: Female Assistive Devices: Oxygen - Continuous and Walker Review of Systems Review of Systems: All systems reviewed & are unremarkable except as noted in HPI & below Physical Exam Constitutional: WD/WN, vitals as above Eyes: + anicteric sclerae; normal pupil size ENMT: external ear and nose normal, oropharynx normal Neck: trachea midline, no thyromegaly Respiratory: normal respiratory effort; no respiratory distress Auscultation: + crackles (fine bibasal) and + wheezes (mild expiratory); breath sounds present, no diminished lung sounds, no rales and no rhonchi Cardiovascular: RRR, no murmur, no edema Gastrointestinal (Abdomen): normal bowel sounds, soft, nontender, no hepatosplenomegaly Musculoskeletal: no cyanosis or clubbing, extremities motor strength 5/5 Skin: no rashes, warm and dry Neurologic: moves all extremities and awake; not confused Psychiatric: A+Ox3, euthymic affect Genitourinary: no CVA tenderness Lymphatic: no cervical lymphadenopathy Results & Data Results & Data Vital Signs (Past 12 Hours) Vital Signs Temp Pulse Resp BP Pulse Ox O2 Del Method 02/01/23 13:19 79 02/01/23 13:17 83 16 139/78 100 02/01/23 11:50 Room Air 02/01/23 11:47 36.9 C 87 24 128/66 95 Room Air Laboratory Results Abnormal lab results 02/01/23 02/01/23 Range/Units 12:29 12:31 WBC 23.28 H (4.8-10.8) K/ul Hgb 16.4 H (12.0-16.0) g/dl Hct 48.9 H (37.0-47.0) % Neut # (Auto) 20.54 H (1.40-6.50) K/uL [place] # (Auto) 0.95 H (0.11-0.59) K/uL [place] 97 L (98-107) mmol/L Glucose 418 H* (70-99(Fasting)) mg/dl Total Bilirubin 1.2 H (0.2-1.0) mg/dl SARS-CoV-2 (PCR) POSITIVE A* (Negative) Diagnostic Findings SINGLE VIEW CHEST CLINICAL HISTORY: Atypical chest pain. Cough FINDINGS: A PA chest radiograph is compared to study dated 01/17/2023. Correlation is made with chest CT dated 07/14/2019. There is a moderate to large hiatal hernia. The cardiomediastinal silhouette is unremarkable. Chronic interstitial thickening is similar to previous. There is bibasilar scarring/atelectasis. No airspace consolidation or pleural effusion is identified. No pneumothorax is seen. The skeletal structures are osteopenic. The bony thorax is grossly intact. Lumbar fusion hardware is partially imaged. IMPRESSION: 1. No active disease in the chest. 2. Hiatal hernia. Medications Administered ER medications given: DuoNeb 5 mg neb Dexamethasone 6 mg IV Normal saline 1 L bolus Insulin 6 units IV Ceftriaxone 2 g IV ECG Rate (beats per minute): 86 Rhythm: normal sinus Findings: no acute ischemic change Comparison ECG Date: from (January 17, 2023) Change: no significant change Code Status & VTE Plan Code Status All treatment outside of the cardiac arrest, trial of intubation in setting of respiratory VTE Prophylaxis Plan VTE Prophylaxis will be ordered: Yes PG Care Time/CCT Total # of Minutes Spent Total Time Spent with Patient: Total time spent is greater than 50% in coordination of care (as documented) at patient's floor/unit and/or counseling patient: Coding Level of Care Code 39823 INT INP/OBS CARE MIN Diagnoses COPD exacerbation J44.1 Acute suppurative otitis media of left ear without spontaneous rupture of tympanic membrane, recurrence not specified H66.002 Chronicity: acute Otitis media type: suppurative Recurrence: not specified as recurrent Spontaneous tympanic membrane rupture: without spontaneous rupture COVID-19 U07.1 Controlled type 2 diabetes with neuropathy E11.40 Hypoxic R09.02 Leukocytosis D72.829 (2) Left otitis media Chronicity: acute Otitis media type: suppurative Recurrence: not specified as recurrent Spontaneous tympanic membrane rupture: without spontaneous rupture Qualified Code(s): H66.002 - Acute suppurative otitis media without spontaneous rupture of ear drum, left ear
[2023-02-01 15:22] LABS: C Reactive Protein 9.43 mg/dl (0-0.5)
[2023-02-01] MEDS ORDERED: PHARMACY GLYCEMIC MGMT CONSULT PRN (15:32)
[2023-02-01] MEDS ORDERED: Patient's HEIGHT &/or WEIGHT Needed SCH (16:00)
[2023-02-01 16:17] LABS: Appearance Urine Clear (Clear); Bilirubin Urine Negative (Negative); Blood Urine Negative (Negative); Color Urine Yellow; Glucose Urine UA 3+ (Negative); Ketones Urine Negative (Negative); Leukocyte Esterase Urine Negative (Negative); Nitrite Urine Negative (Negative); Protein Urine Negative (Negative); Urobilinogen Urine Negative (Negative); pH Urine 6.5 (4.5-7.5)
[2023-02-01] MEDS ORDERED: LANTUS PER UNIT CHARGE SC SCH (17:00)
[2023-02-01] MEDS ORDERED: ALBUT/IPRATROP 3MG/0.5MG NEB 3 ML VIAL NEB SCH (19:00)
[2023-02-01] MEDS: FORMOTEROL 20 MCG/2 ML VIAL NEB SCH (19:14)
[2023-02-01] MEDS: BUDESONIDE 0.5 MG/2 ML VIAL (PULMICORT) NEB SCH (19:14)
[2023-02-01] MEDS: INSULIN ASPART PER UNIT CHARGE SC SCH ×2 (19:27→22:51)
[2023-02-01] MEDS ORDERED: ALBUT/IPRATROP 3MG/0.5MG NEB 3 ML VIAL NEB PRN (20:30)
[2023-02-01] MEDS: ATORVASTATIN 10 MG TAB PO SCH (20:32)
[2023-02-01] MEDS: METOPROLOL SUCC 50MG EXT REL TAB PO SCH (20:32)
[2023-02-01] MEDS: guaiFENesin 600 MG TABCR PO SCH (20:32)
[2023-02-01] MEDS: ENOXAPARIN INJ 40 MG/0.4 ML SYR SQ SCH (22:54)
[2023-02-02] MEDS ORDERED: ALBUT/IPRATROP 3MG/0.5MG NEB 3 ML VIAL NEB SCH (07:00)
[2023-02-02] MEDS: FORMOTEROL 20 MCG/2 ML VIAL NEB SCH ×2 (07:12→19:13)
[2023-02-02] MEDS: BUDESONIDE 0.5 MG/2 ML VIAL (PULMICORT) NEB SCH ×2 (07:12→19:13)
[2023-02-02 07:31] LABS: Basophils # (auto) 0.03 K/uL (0.00-0.20); Basophils % (auto) 0.2 %; Hematocrit (blood only) 40.6 % (37.0-47.0); Hemoglobin 13.9 g/dl (12.0-16.0); Immature Granulocytes # (auto) 0.08 K/uL (0.01-0.20); Immature Granulocytes % (auto) 0.5 %; Lymphocytes # (auto) 1.68 K/uL (1.20-3.40); Lymphocytes % (auto) 11.1 %; Mean Corpuscular Hemoglobin 30.8 pg (25.0-34.0); Mean Corpuscular Hgb Conc 34.2 g/dL (32.0-36.0); Mean Corpuscular Volume 89.8 fL (80.0-100.0); Mean Platelet Volume 11.2 fL (9.4-12.4); Monocytes # (auto) 0.44 K/uL (0.11-0.59); Monocytes % (auto) 2.9 %; Neutrophils # (auto) 12.94 K/uL (1.40-6.50); Neutrophils % (auto) 85.3 %; Platelet Count 198 K/uL (130-400); RDW Standard Deviation 42.5 fL (36.4-46.3); Red Blood Count 4.52 M/uL (4.20-5.40); White Blood Count 15.17 K/ul (4.8-10.8)
[2023-02-02 07:48] LABS: BUN Creatinine Ratio 23.5 (10-20); Calcium 8.5 mg/dl (8.6-10.3); Creatinine Clr Calc Pharmacy 59.3 ml/min; Est GFR (African American) 94.4 ml/min; Est GFR (Non-African American) 81.5 ml/min; Magnesium 1.5 mg/dl (1.7-2.4); Potassium 4.1 mmol/L (3.5-5.1)
[2023-02-02] MEDS: AMOXICILLIN/CLAVULANATE 875 MG TAB PO SCH ×2 (08:30→17:38)
[2023-02-02] MEDS: FUROSEMIDE 20 MG TAB PO SCH (08:31)
[2023-02-02] MEDS: ENALAPRIL MALEATE 10 MG TAB PO SCH (08:31)
[2023-02-02] MEDS: guaiFENesin 600 MG TABCR PO SCH ×2 (08:32→20:16)
[2023-02-02] MEDS: amLODIPine BESYLATE 5 MG TAB PO SCH (08:32)
[2023-02-02] MEDS: INSULIN ASPART PER UNIT CHARGE SC SCH ×4 (08:33→21:29)
[2023-02-02] MEDS: methylPREDNISolone 40 MG in SYRINGE 0 ML IV SCH (08:34)
[2023-02-02] MEDS: LANTUS PER UNIT CHARGE SC SCH (08:34)
--- NOTE | 2023-02-02 10:44 | Pharmacy Report ---
Pharmacy Glycemic Short Note 2 - Date of Service February 02, 2023 - Glycemic Short BSG Results (Last 24 hours): 02/01/23 02/01/23 02/01/23 12:29 15:05 18:54 Glucose 418 H* POC Glucose 229 H 213 H 02/01/23 02/02/23 02/02/23 20:15 06:58 08:14 Glucose 180 H POC Glucose 278 H 154 H OUTPATIENT ANTIDIABETIC REGIMEN: * metformin, glipizide ASSESSMENT: * 82 year old admitted for COPD exacerbation/hypoxia. Pharmacy consulted for glycemic management. Patient ordered ongoing steroids, therefore anticipate steroid induced hyperglycemia. * Fasting BSG 180 mg/dL - ordered solumedrol 40 mg daily, will order basal 0.2 units/kg once daily to help cover steroid effects PLAN FOR INPATIENT GLYCEMIC CONTROL: * Hold outpatient oral diabetes medications * Basal insulin * Lantus 15 units once daily (give with solumedrol) * Bolus insulin * NovoLog per scale ACHS or Q6hrs while NPO * Goal Range: Low 110 mg/dL - High 140 mg/dL * Correction Factor: 35 mg/dL/unit * Nutritional / Prandial insulin per carb ratio of 1 unit per 11 grams CHO consumed
--- NOTE | 2023-02-02 13:03 | Hospitalist Progress Note ---
Date of Service February 02, 2023 Assessment & Plan (1) COPD exacerbation: Plan: Still with mild wheezing on exam Continue DuoNebs QID Formoterol/budesonide nebs BID continue Solu-Medrol at 40 mg IV daily (2) Left otitis media: Plan: Continue Augmentin BID (3) COVID-19: Plan: Unclear how long she has had this illness therefore antivirals deferred Prior COVID infection in April 2022, vaccinated and boosted Guaifenesin BID She desires to hold off codeine cough syrup due to concerns for confusion with opiates therefore we will start with dextromethorphan as needed for cough (4) Controlled type 2 diabetes with neuropathy: Plan: HbA1c 6.8 in November. Hold home meds (glipizide, metformin) Consult pharmacy for glycemic control in setting of steroid use and hyperglycemia on admission (5) Leukocytosis: Plan: With associated hyperglycemia resume the patient had recent steroids however she took the prednisone as prescribed right out her emergency room visit therefore would have finished the course on January 21 and she denies any further steroids. Procalcitonin negative however CRP elevated at 9.43 - this is consistent with COVID-19 however an elevated neutrophilia is not consistent with this diagnosis Follow-up blood cultures Urinalysis is unremarkable She has a left otitis media however doubtful this is driving her white blood count up to 23 (6) Acute respiratory failure with hypoxia: Plan: Respiratory rate was 30 on presentation, now improved Not tachypneic anymore But still requiring oxygen Most likely secondary to COPD exacerbation Plan VTE prophylaxis - Lovenox 40 mg subcu daily Diet - type 2 diabetes Disposition - admit to med/surg Admission and Anticipated Discharge Date Admission Date: February 01, 2023 Subjective Patient is still complaining of cough. Less short of breath though. She is still on 2 L of oxygen which is new for her. She does not normally use oxygen at home. Review of Systems Review of Systems: All systems reviewed & are unremarkable except as noted in Subjective Physical Exam Physical Exam: General: Awake, conversant Heart: S1, S2/regular rate and rhythm, no murmur rubs or gallops Lungs: Bilateral wheezes. Normal effort Abdomen: Soft/nontender/nondistended. No hepatosplenomegaly Extremities: No clubbing/cyanosis. No edema Behavior: Appropriate, cooperative Results & Data Results & Data Vital Signs (Past 12 Hours) Vital Signs Temp Pulse Resp BP Pulse Ox O2 Del Method O2 Flow Rate 02/02/23 10:56 36.7 C 71 18 104/69 95 Nasal Cannula 2 02/02/23 08:58 Nasal Cannula 2 02/02/23 08:16 36.5 C 60 18 144/69 H 97 Nasal Cannula 2 02/02/23 07:13 63 18 100 Nasal Cannula 4 Laboratory Results Abnormal lab results 02/01/23 02/01/23 02/01/23 Range/Units 12:29 12:31 15:05 WBC (4.8-10.8) K/ul Neut # (Auto) 20.54 H (1.40-6.50) K/uL [place] # (Auto) 0.95 H (0.11-0.59) K/uL BUN/Creatinine Ratio (10-20) Glucose (70-99(Fasting)) mg/dl POC Glucose 229 H (70-99) mg/dl Calcium (8.6-10.3) mg/dl Magnesium (1.7-2.4) mg/dl C-Reactive Protein 9.43 H (0-0.5) mg/dl Urine Glucose (UA) (Negative) SARS-CoV-2 (PCR) POSITIVE A* (Negative) 02/01/23 02/01/23 02/01/23 Range/Units 16:00 18:54 20:15 WBC (4.8-10.8) K/ul Neut # (Auto) (1.40-6.50) K/uL [place] # (Auto) (0.11-0.59) K/uL BUN/Creatinine Ratio (10-20) Glucose (70-99(Fasting)) mg/dl POC Glucose 213 H 278 H (70-99) mg/dl Calcium (8.6-10.3) mg/dl Magnesium (1.7-2.4) mg/dl C-Reactive Protein (0-0.5) mg/dl Urine Glucose (UA) 3+ H (Negative) SARS-CoV-2 (PCR) (Negative) 02/02/23 02/02/23 02/02/23 Range/Units 06:58 08:14 12:02 WBC 15.17 H (4.8-10.8) K/ul Neut # (Auto) 12.94 H (1.40-6.50) K/uL [place] # (Auto) (0.11-0.59) K/uL BUN/Creatinine Ratio 23.5 H (10-20) Glucose 180 H (70-99(Fasting)) mg/dl POC Glucose 154 H 197 H (70-99) mg/dl Calcium 8.5 L (8.6-10.3) mg/dl Magnesium 1.5 L (1.7-2.4) mg/dl C-Reactive Protein (0-0.5) mg/dl Urine Glucose (UA) (Negative) SARS-CoV-2 (PCR) (Negative) Diagnostic Findings Chest X-Ray 02/01/23 11:50 SINGLE VIEW CHEST CLINICAL HISTORY: Atypical chest pain. Cough FINDINGS: A PA chest radiograph is compared to study dated 01/17/2023. Correlation is made with chest CT dated 07/14/2019. There is a moderate to large hiatal hernia. The cardiomediastinal silhouette is unremarkable. Chronic interstitial thickening is similar to previous. There is bibasilar scarring/atelectasis. No airspace consolidation or pleural effusion is identified. No pneumothorax is seen. The skeletal structures are osteopenic. The bony thorax is grossly intact. Lumbar fusion hardware is partially imaged. IMPRESSION: 1. No active disease in the chest. 2. Hiatal hernia. ACT 112: Negative or not required by law. Electronically signed by: Josse Martinez M.D. 02/01/2023 1:08 PM PG Care Time/CCT Total # of Minutes Spent Total Time Spent with Patient: Total time spent is greater than 50% in coordination of care (as documented) at patient's floor/unit and/or counseling patient: Coding Level of Care Code 30710 SUB INP/OBS CARE 2/35MIN Diagnoses COPD exacerbation J44.1 Acute suppurative otitis media of left ear without spontaneous rupture of tympanic membrane, recurrence not specified H66.002 Otitis media type: suppurative Chronicity: acute Recurrence: not specified as recurrent Spontaneous tympanic membrane rupture: without spontaneous rupture COVID-19 U07.1 Controlled type 2 diabetes with neuropathy E11.40 Leukocytosis D72.829 Acute respiratory failure with hypoxia J96.01 (2) Left otitis media Otitis media type: suppurative Chronicity: acute Recurrence: not specified as recurrent Spontaneous tympanic membrane rupture: without spontaneous rupture Qualified Code(s): H66.002 - Acute suppurative otitis media without spontaneous rupture of ear drum, left ear
[2023-02-02] MEDS: ENOXAPARIN INJ 40 MG/0.4 ML SYR SQ SCH (20:15)
[2023-02-02] MEDS: ATORVASTATIN 10 MG TAB PO SCH (20:16)
[2023-02-02] MEDS: METOPROLOL SUCC 50MG EXT REL TAB PO SCH (20:17)
--- NOTE | 2023-02-03 05:48 | Electrocardiogram Report ---
Test Reason : Blood Pressure : / mmHG Vent. Rate : 086 BPM Atrial Rate : 086 BPM P-R Int : 196 ms QRS Dur : 074 ms QT Int : 358 ms P-R-T Axes : 082 031 057 degrees QTc Int : 428 ms Normal sinus rhythm Cannot rule out Anterior infarct (cited on or before 12-JUN-2001) Abnormal ECG When compared with ECG of 17-JAN-2023 16:46, No significant change Confirmed by Stephon Meza ([id number]) on 02/03/2023 5:47:31 AM Referred By: Confirmed By:Stephon Meza
[2023-02-03] MEDS: FORMOTEROL 20 MCG/2 ML VIAL NEB SCH ×2 (06:55→19:40)
[2023-02-03] MEDS: BUDESONIDE 0.5 MG/2 ML VIAL (PULMICORT) NEB SCH ×2 (06:55→19:40)
[2023-02-03 08:35] LABS: Hematocrit (blood only) 44.7 % (37.0-47.0); Hemoglobin 15.2 g/dl (12.0-16.0); Mean Corpuscular Hemoglobin 30.9 pg (25.0-34.0); Mean Corpuscular Volume 90.9 fL (80.0-100.0); Mean Platelet Volume 11.1 fL (9.4-12.4); Platelet Count 229 K/uL (130-400); RDW Coefficient of Variation 13.1 % (11.5-14.5); RDW Standard Deviation 42.6 fL (36.4-46.3); Red Blood Count 4.92 M/uL (4.20-5.40); White Blood Count 14.64 K/ul (4.8-10.8)
[2023-02-03] MEDS: INSULIN ASPART PER UNIT CHARGE SC SCH ×4 (09:00→21:45)
[2023-02-03] MEDS: LANTUS PER UNIT CHARGE SC SCH (09:00)
[2023-02-03] MEDS: DEXTROMETHORPHAN POLYMR COMPLX 30 MG/5 ML UDP PO PRN (09:07)
[2023-02-03] MEDS: guaiFENesin 600 MG TABCR PO SCH ×2 (09:08→21:47)
[2023-02-03] MEDS: ENALAPRIL MALEATE 10 MG TAB PO SCH (09:08)
[2023-02-03] MEDS: methylPREDNISolone 40 MG in SYRINGE 0 ML IV SCH ×2 (09:08→21:46)
[2023-02-03] MEDS: amLODIPine BESYLATE 5 MG TAB PO SCH (09:08)
[2023-02-03] MEDS: FUROSEMIDE 20 MG TAB PO SCH (09:08)
[2023-02-03] MEDS: AMOXICILLIN/CLAVULANATE 875 MG TAB PO SCH ×2 (09:08→18:26)
--- NOTE | 2023-02-03 17:07 | Hospitalist Progress Note ---
Date of Service February 03, 2023 Assessment & Plan (1) COPD exacerbation: Plan: Less wheezing Continue DuoNebs QID Formoterol/budesonide nebs BID Increase Solu-Medrol to 40 mg IV twice daily dosing since she is still coughing vigorously. (2) Left otitis media: Plan: Continue Augmentin BID (3) COVID-19: Plan: Unclear how long she has had this illness therefore antivirals deferred Prior COVID infection in April 2022, vaccinated and boosted Guaifenesin BID She desires to hold off codeine cough syrup due to concerns for confusion with opiates therefore we will start with dextromethorphan as needed for cough (4) Controlled type 2 diabetes with neuropathy: Plan: HbA1c 6.8 in November. Hold home meds (glipizide, metformin) Consult pharmacy for glycemic control in setting of steroid use and hyperglycemia on admission (5) Leukocytosis: Plan: With associated hyperglycemia resume the patient had recent steroids however she took the prednisone as prescribed right out her emergency room visit therefore would have finished the course on January 21 and she denies any further steroids. Procalcitonin negative however CRP elevated at 9.43 - this is consistent with COVID-19 however an elevated neutrophilia is not consistent with this diagnosis Follow-up blood cultures Urinalysis is unremarkable She has a left otitis media however doubtful this is driving her white blood count up to 23 Leukocytosis is improving. (6) Acute respiratory failure with hypoxia: Plan: Respiratory rate was 30 on presentation, now improved Not tachypneic anymore But still requiring oxygen Most likely secondary to COPD exacerbation Plan VTE prophylaxis - Lovenox 40 mg subcu daily Diet - type 2 diabetes Disposition - admit to med/surg Admission and Anticipated Discharge Date Admission Date: February 01, 2023 Subjective Patient says that she is feeling better overall. Still coughing quite a bit. Now off of oxygen but still gets winded on exertion. Review of Systems Review of Systems: All systems reviewed & are unremarkable except as noted in Subjective Physical Exam Physical Exam: General: Awake, conversant Heart: S1, S2/regular rate and rhythm, no murmur rubs or gallops Lungs: Bilateral wheezes. Normal effort Abdomen: Soft/nontender/nondistended. No hepatosplenomegaly Extremities: No clubbing/cyanosis. No edema Behavior: Appropriate, cooperative Results & Data Results & Data Vital Signs (Past 12 Hours) Vital Signs Temp Pulse Resp BP Pulse Ox O2 Del Method O2 Flow Rate 02/03/23 16:51 Room Air 02/03/23 15:04 36.8 C 65 16 112/66 96 Room Air 02/03/23 11:54 36.5 C 77 16 167/81 H 97 Room Air 02/03/23 09:00 Room Air 02/03/23 07:51 36.5 C 56 L 16 137/73 98 Nasal Cannula 2 02/03/23 06:55 64 16 97 Nasal Cannula 1 Laboratory Results Abnormal lab results 02/02/23 02/02/23 02/03/23 Range/Units 17:10 20:08 08:07 WBC 14.64 H (4.8-10.8) K/ul POC Glucose 266 H 234 H (70-99) mg/dl 02/03/23 02/03/23 02/03/23 Range/Units 08:13 12:07 17:02 WBC (4.8-10.8) K/ul POC Glucose 131 H 154 H 245 H (70-99) mg/dl PG Care Time/CCT Total # of Minutes Spent Total Time Spent with Patient: Total time spent is greater than 50% in coordination of care (as documented) at patient's floor/unit and/or counseling patient: Coding Level of Care Code 98223 SUB INP/OBS CARE 2MIN Diagnoses COPD exacerbation J44.1 Acute suppurative otitis media of left ear without spontaneous rupture of tympanic membrane, recurrence not specified H66.002 Otitis media type: suppurative Chronicity: acute Recurrence: not specified as recurrent Spontaneous tympanic membrane rupture: without spontaneous rupture COVID-19 U07.1 Controlled type 2 diabetes with neuropathy E11.40 Leukocytosis D72.829 Acute respiratory failure with hypoxia J96.01 (2) Left otitis media Otitis media type: suppurative Chronicity: acute Recurrence: not specified as recurrent Spontaneous tympanic membrane rupture: without spontaneous rupture Qualified Code(s): H66.002 - Acute suppurative otitis media without spontaneous rupture of ear drum, left ear
[2023-02-03] MEDS ORDERED: LANTUS PER UNIT CHARGE SC SCH (21:00)
[2023-02-03] MEDS: METOPROLOL SUCC 50MG EXT REL TAB PO SCH (21:48)
[2023-02-03] MEDS: ENOXAPARIN INJ 40 MG/0.4 ML SYR SQ SCH (21:48)
[2023-02-03] MEDS: ATORVASTATIN 10 MG TAB PO SCH (21:48)
[2023-02-04] MEDS: INSULIN ASPART PER UNIT CHARGE SC SCH ×6 (00:44→20:51)
[2023-02-04] MEDS: FORMOTEROL 20 MCG/2 ML VIAL NEB SCH ×2 (07:06→19:44)
[2023-02-04] MEDS: BUDESONIDE 0.5 MG/2 ML VIAL (PULMICORT) NEB SCH ×2 (07:06→19:44)
[2023-02-04] MEDS: amLODIPine BESYLATE 5 MG TAB PO SCH (08:50)
[2023-02-04] MEDS: FUROSEMIDE 20 MG TAB PO SCH (08:50)
[2023-02-04] MEDS: guaiFENesin 600 MG TABCR PO SCH ×2 (08:50→20:55)
[2023-02-04] MEDS: AMOXICILLIN/CLAVULANATE 875 MG TAB PO SCH ×2 (08:50→18:10)
[2023-02-04] MEDS: methylPREDNISolone 40 MG in SYRINGE 0 ML IV SCH (08:50)
[2023-02-04] MEDS: ENALAPRIL MALEATE 10 MG TAB PO SCH (08:51)
[2023-02-04] MEDS ORDERED: LANTUS PER UNIT CHARGE SC SCH (09:00)
--- NOTE | 2023-02-04 14:26 | Hospitalist Progress Note ---
Date of Service February 04, 2023 Assessment & Plan (1) COPD exacerbation: Plan: Less wheezing, still coughing with deep inspiration Continue DuoNebs QID Formoterol/budesonide nebs BID Discontinue IV Solu-Medrol. She got a dose this morning. Consider switching her to p.o. prednisone tomorrow and discharge tomorrow. (2) Left otitis media: Plan: Continue Augmentin BID (3) COVID-19: Plan: Unclear how long she has had this illness therefore antivirals deferred Prior COVID infection in April 2022, vaccinated and boosted Guaifenesin BID She desires to hold off codeine cough syrup due to concerns for confusion with opiates therefore we will start with dextromethorphan as needed for cough (4) Controlled type 2 diabetes with neuropathy: Plan: HbA1c 6.8 in November. Hold home meds (glipizide, metformin) Consult pharmacy for glycemic control in setting of steroid use and hyperglycemia on admission (5) Leukocytosis: Plan: With associated hyperglycemia resume the patient had recent steroids however she took the prednisone as prescribed right out her emergency room visit therefore would have finished the course on January 21 and she denies any further steroids. Procalcitonin negative however CRP elevated at 9.43 - this is consistent with COVID-19 however an elevated neutrophilia is not consistent with this diagnosis Blood cultures negative Urinalysis is unremarkable She has a left otitis media however doubtful this is driving her white blood count up to 23 Leukocytosis is improving. (6) Acute respiratory failure with hypoxia: Plan: Respiratory rate was 30 on presentation, now improved Not tachypneic anymore But still requiring oxygen Most likely secondary to COPD exacerbation Plan VTE prophylaxis - Lovenox 40 mg subcu daily Diet - type 2 diabetes Disposition - admit to med/surg Admission and Anticipated Discharge Date Admission Date: February 01, 2023 Subjective Patient says she is feeling better but still coughing quite a bit. Says that her cough is improved compared to yesterday. She is able to talk longer without going into a coughing spell. she still feels slightly short of breath with ambulation. Review of Systems Review of Systems: All systems reviewed & are unremarkable except as noted in Subjective Physical Exam Physical Exam: General: Awake, conversant Heart: S1, S2/regular rate and rhythm, no murmur rubs or gallops Lungs: Bilateral wheezes. Normal effort. Deep inspiration triggers a coughing spell Abdomen: Soft/nontender/nondistended. No hepatosplenomegaly Extremities: No clubbing/cyanosis. No edema Behavior: Appropriate, cooperative Results & Data Results & Data Vital Signs (Past 12 Hours) Vital Signs Temp Pulse Resp BP Pulse Ox O2 Del Method 02/04/23 10:13 Room Air 02/04/23 07:45 36.3 C L 61 16 146/81 H 97 Room Air 02/04/23 07:07 62 16 98 Room Air Laboratory Results Abnormal lab results 02/03/23 02/03/23 02/04/23 Range/Units 17:02 20:13 00:38 POC Glucose 245 H 251 H 110 H (70-99) mg/dl 02/04/23 02/04/23 02/04/23 Range/Units 03:54 08:20 12:21 POC Glucose 141 H 208 H 261 H (70-99) mg/dl PG Care Time/CCT Total # of Minutes Spent Total Time Spent with Patient: Total time spent is greater than 50% in coordination of care (as documented) at patient's floor/unit and/or counseling patient: Coding Level of Care Code 54757 SUB INP/OBS CARE 2/35MIN Diagnoses COPD exacerbation J44.1 Acute suppurative otitis media of left ear without spontaneous rupture of tympanic membrane, recurrence not specified H66.002 Otitis media type: suppurative Chronicity: acute Recurrence: not specified as recurrent Spontaneous tympanic membrane rupture: without spontaneous rupture COVID-19 U07.1 Controlled type 2 diabetes with neuropathy E11.40 Leukocytosis D72.829 Acute respiratory failure with hypoxia J96.01 (2) Left otitis media Otitis media type: suppurative Chronicity: acute Recurrence: not specified as recurrent Spontaneous tympanic membrane rupture: without spontaneous rupture Qualified Code(s): H66.002 - Acute suppurative otitis media without spontaneous rupture of ear drum, left ear
--- NOTE | 2023-02-04 15:12 | Pharmacy Report ---
Pharmacy Glycemic Short Note 2 - Date of Service February 04, 2023 - Glycemic Short BSG Results (Last 24 hours): 02/03/23 02/03/23 02/04/23 17:02 20:13 00:38 POC Glucose 245 H 251 H 110 H 02/04/23 02/04/23 02/04/23 03:54 08:20 12:21 POC Glucose 141 H 208 H 261 H OUTPATIENT ANTIDIABETIC REGIMEN: * metformin, glipizide ASSESSMENT: 02/04 * Patient received total of 38 units of insulin yesterday, of which 15 units were basal insulin * Fasting BSG 208 mg/dL - steroids dose increased last evening to solm 40 mg bid * Increased basal dose this AM to 20 units daily * Steroids now changing and d/c this afternoon. Patient did get a dose of the solm 40 this AM 02/02 * 82 year old admitted for COPD exacerbation/hypoxia. Pharmacy consulted for glycemic management. Patient ordered ongoing steroids, therefore anticipate steroid induced hyperglycemia. * Fasting BSG 180 mg/dL - ordered solumedrol 40 mg daily, will order basal 0.2 units/kg once daily to help cover steroid effects PLAN FOR INPATIENT GLYCEMIC CONTROL: * Hold outpatient oral diabetes medications * Basal insulin * Lantus - 20 units this AM / d/c order after today - will reevaluate tomorrow since steroids stopped * Bolus insulin * NovoLog per scale ACHS or Q6hrs while NPO * Goal Range: Low 110 mg/dL - High 140 mg/dL * Correction Factor: 20 mg/dL/unit * Nutritional / Prandial insulin per carb ratio of 1 unit per 5 grams CHO consumed
[2023-02-04] MEDS ORDERED: DEXTROSE 50% 50 ML SYRINGE IV PRN (15:15)
[2023-02-04] MEDS ORDERED: GLUCOSE 40% GEL 15 GM TUBE PO PRN (15:15)
[2023-02-04] MEDS ORDERED: CARBOHYDRATES FOR HYPOGLYCEMIA PO PRN (15:15)
[2023-02-04] MEDS ORDERED: GLUCOSE 10 TAB/TUBE PO PRN (15:15)
[2023-02-04] MEDS ORDERED: GLUCAGON FOR INJ 1 MG VIAL IM PRN (15:15)
[2023-02-04] MEDS: ENOXAPARIN INJ 40 MG/0.4 ML SYR SQ SCH (20:55)
[2023-02-04] MEDS: ATORVASTATIN 10 MG TAB PO SCH (20:55)
[2023-02-04] MEDS: METOPROLOL SUCC 50MG EXT REL TAB PO SCH (20:56)
[2023-02-04] MEDS: DEXTROMETHORPHAN POLYMR COMPLX 30 MG/5 ML UDP PO PRN (20:57)
[2023-02-05] MEDS: BUDESONIDE 0.5 MG/2 ML VIAL (PULMICORT) NEB SCH (06:54)
[2023-02-05] MEDS: FORMOTEROL 20 MCG/2 ML VIAL NEB SCH (06:55)
[2023-02-05] MEDS: guaiFENesin 600 MG TABCR PO SCH (08:57)
[2023-02-05] MEDS: FUROSEMIDE 20 MG TAB PO SCH (08:57)
[2023-02-05] MEDS: amLODIPine BESYLATE 5 MG TAB PO SCH (08:57)
[2023-02-05] MEDS: ENALAPRIL MALEATE 10 MG TAB PO SCH (08:57)
[2023-02-05] MEDS: AMOXICILLIN/CLAVULANATE 875 MG TAB PO SCH (08:57)
[2023-02-05] MEDS: DEXTROMETHORPHAN POLYMR COMPLX 30 MG/5 ML UDP PO PRN (08:58)
[2023-02-05] MEDS: INSULIN ASPART PER UNIT CHARGE SC SCH ×2 (09:02→12:51)
[2023-02-05] MEDS ORDERED: dexAMETHasone 4 MG TAB PO SCH (09:30)
[2023-02-05 09:55] LABS: Basophils # (auto) 0.02 K/uL (0.00-0.20); Basophils % (auto) 0.2 %; Eosinophils # (auto) 0.01 K/uL (0.00-0.50); Eosinophils % (auto) 0.1 %; Hematocrit (blood only) 47.9 % (37.0-47.0); Hemoglobin 16.3 g/dl (12.0-16.0); Immature Granulocytes # (auto) 0.07 K/uL (0.01-0.20); Immature Granulocytes % (auto) 0.7 %; Lymphocytes # (auto) 3.67 K/uL (1.20-3.40); Lymphocytes % (auto) 38.1 %; Mean Corpuscular Hemoglobin 30.5 pg (25.0-34.0); Mean Corpuscular Volume 89.5 fL (80.0-100.0); Mean Platelet Volume 10.8 fL (9.4-12.4); Monocytes # (auto) 0.65 K/uL (0.11-0.59); Monocytes % (auto) 6.8 %; Neutrophils % (auto) 54.1 %; Platelet Count 267 K/uL (130-400); Red Blood Count 5.35 M/uL (4.20-5.40); White Blood Count 9.62 K/ul (4.8-10.8)
[2023-02-05 09:56] LABS: BUN Creatinine Ratio 34.1 (10-20); Calcium 9.1 mg/dl (8.6-10.3); Creatinine Clr Calc Pharmacy 44.3 ml/min; Est GFR (African American) 68.1 ml/min; Est GFR (Non-African American) 58.8 ml/min; Magnesium 1.6 mg/dl (1.7-2.4); Potassium 4.1 mmol/L (3.5-5.1)
[2023-02-05] MEDS ORDERED: LANTUS PER UNIT CHARGE SC SCH (10:00)
[2023-02-05] MEDS ORDERED: MAGNESIUM OXIDE 400 MG TAB PO ONE (12:03)
--- NOTE | 2023-02-05 12:30 | Discharge Summary ---
Discharge Summary Date of Service February 05, 2023 Notes For Next Care Provider Medication Changes From Visit Dexamethasone 6mg po qAM x 5 more days Augmentin 875/125mg po bid x 5 more days Tessalon perles 200mg po tid prn cough Admission HPI Per Admitting Provider Deisy Back is an 82-year-old female who presents to the ER with cough, dizziness, chest pain, shortness of breath. She was recently seen in the emergency room on January 17 with the same complaints. Cepheid PCR was negative for SARS-COV-2, RSV and influenza at that time. She was diagnosed with COPD exacerbation and treated with DuoNeb, Solu-Medrol 125 mg IV, azithromycin and Toradol. She was sent home with a prednisone dose of 40 mg p.o. daily for 4 days. She feels like she improved for the first few days but finds it difficult to give me a good timeline. She returns today as the coughing getting worse, she has chest pain while coughing and now her left ear aches. She reports no further steroids in the last week. She feels she has been getting progressively worse since 2 weeks ago. In the ER her SARS-COV-2 test is now positive, O2 sats dropped to 87% on room air at rest and this gets worse on exertion therefore her case was discussed with medicine for admission and ongoing management. Principal Dx & Hospital Course #1 = Principal Diagnosis (1) COPD exacerbation: With wheezing, barking cough from bronchitis, and initially hypoxic which is now resolved 2/2 COVID-19 bronchitis CXR no PNA Improved with steroids, nebs, antitussives, barking cough remains bu feels better. No fevers, no leukocytosis Continue DuoNebs prn at home Finish out course of dexamethasone 6mg daily x 5more days after discharge (2) Left otitis media: Continue Augmentin BID x 10 day course, improving, leukocytosis and pain resolved (3) COVID-19: Unclear how long she has had this illness therefore antivirals deferred Prior COVID infection in April 2022, vaccinated and boosted decadron tx as above supportive care (4) Controlled type 2 diabetes with neuropathy: HbA1c 6.8 in November. resume home meds (glipizide, metformin) on discharge, treated with insulin here while on high doses of steroids (5) Leukocytosis: had steroids prior to admission and also with AOM contributing now resolved with treatment with Augmentin Procalcitonin negative however CRP elevated at 9.43 - this is consistent with COVID-19 Blood cultures negative Urinalysis is unremarkable (6) Acute respiratory failure with hypoxia: Respiratory rate was 30 on presentation, now improved no longer hypoxic, not requiring supplemental O2, POX 97% on room air prior to dsicahrge Most likely secondary to COPD exacerbation Plan VTE prophylaxis - Lovenox 40 mg subcu daily Disposition - dc to home Discharge Exam Constitutional WD/WN, vitals as above Respiratory normal respiratory effort and + cough Auscultation: no crackles, no rales and no rhonchi Cardiovascular RRR, no murmur, no edema Updated Medication List Medication Instructions Recorded Confirmed Type cyanocobalamin (vitamin B-12) 100 100 mcg PO BID #30 tabs 09/07/18 02/01/23 History mcg tablet blood sugar diagnostic (OneTouch #100 ea 04/29/22 12/09/22 Rx Verio test strips) nebulizers #1 ea 05/15/22 12/09/22 Rx glipizide 5 mg tablet, extended 5 mg PO HS 08/30/22 02/01/23 History release 24 hr metformin 1,000 mg tablet 1,000 mg PO BID #180 tabs 11/19/22 02/01/23 Rx amlodipine 10 mg tablet 10 mg PO QAM 02/01/23 02/01/23 History atorvastatin 10 mg tablet 10 mg PO PM 02/01/23 02/01/23 History benazepril 20 mg tablet 20 mg PO QAM 02/01/23 02/01/23 History cholecalciferol (vitamin D3) 25 1,000 units PO QAM 02/01/23 02/01/23 History mcg (1,000 unit) capsule furosemide 20 mg tablet (Lasix) 20 mg PO QAM 02/01/23 02/01/23 History metoprolol succinate 100 mg 100 mg PO PM 02/01/23 02/01/23 History tablet,extended release 24 hr albuterol sulfate 90 mcg/actuation 2 puff inhalation Q6H PRN 02/05/23 Rx aerosol inhaler cough/wheeze/shortness of breath #1 inhaler amoxicillin 875 mg-potassium 1 tab PO BIDM #11 tabs 02/05/23 Rx clavulanate 125 mg tablet benzonatate 200 mg capsule 200 mg PO TID PRN cough #20 caps 02/05/23 Rx dexamethasone 6 mg tablet 6 mg PO DAILY #5 tabs 02/05/23 Rx ipratropium 0.5 mg-albuterol 3 mg 3 ml NEB Q6H PRN 02/05/23 Rx (2.5 mg base)/3 mL nebulization cough/wheezing/shortness of breath soln #1 box Hospital Stay Data Consultations 02/01/23 14:24 ED Decision to Admit Stat Pending Results Patient Have Any Pending Studies at Discharge: Yes (Final blood cultures-no growth to date) Discharge Instructions Given to Patient (Per Discharging Provider) Please take 5 more days of the Augmentin for your ear infection. You will need 5 more days of the dexamethasone as a steroid to reduce inflammation in the lungs and help with wheezing and cough. You can take Tessalon Perles as needed for cough along with OTC dextromethorphan cough syrup. Continue to use your nebulizers as before and albuterol as needed for cough. Total Time Total Time Spent Total Time Spent (In Minutes): 35 min Coding Level of Care Code 36349 INP/OBS DISCH >30 MIN Diagnoses COPD exacerbation J44.1 Acute suppurative otitis media of left ear without spontaneous rupture of tympanic membrane, recurrence not specified H66.002 Otitis media type: suppurative Chronicity: acute Recurrence: not specified as recurrent Spontaneous tympanic membrane rupture: without spontaneous rupture COVID-19 U07.1 Controlled type 2 diabetes with neuropathy E11.40 Leukocytosis D72.829 Acute respiratory failure with hypoxia J96.01
== END 2023-02-05 13:18 | disposition home or self-care (01) | DRG 190 ==
LOC: ED 11:34 → 2N 15:34 → SUATTDRO 15:34 → 2N 18:10

== ENCOUNTER 2024-10-24 13:10 | Observation (INO) ==
--- NOTE | 2024-10-24 14:32 | Emergency Department Note ---
Impression & Plan Pneumonia, SIRS (systemic inflammatory response syndrome), Cough, Acute dyspnea, Elevated lactic acid level ED Provider Note HISTORY OF PRESENT ILLNESS: Patient is an 84-year-old female presenting with a cough and shortness of breath. Patient reports symptoms started yesterday and gotten progressively worse. She states that she has been having a cough productive of green-colored sputum since yesterday. She complains of diffuse bodyaches. She states she feels very short of breath, most notably with any sort of exertion. She denies any chest pain. Reports that she also is currently having a headache, which she states is from all of her coughing. Denies any recent sick contact exposures or recent travel. Denies any recent antibiotic or steroid use. Denies any abdominal pain, nausea or vomiting. Denies any DVT or PE history. Denies any history of cardiac stents. She is not on any anticoagulation or antiplatelet therapies. ROS: as above PHYSICAL EXAM: Constitutional: Patient appears in no acute distress. HENT: Head: Normocephalic and atraumatic. Eyes: EOMI, PERRL Mouth/Throat: Mucous membranes moist. Neck: Trachea midline. Neck supple. Cardiovascular: Tachycardic with regular rhythm. No murmurs, rubs or gallops. Intact distal pulses. Pulmonary/Chest: No respiratory distress. Breath sounds clear and equal bilaterally. Coarse breath sounds in bilateral posterior lung bases. Expiratory wheezes in bilateral upper lung elaine. Abdominal: Abdomen soft, no tenderness, rebound or guarding. Musculoskeletal: No edema, tenderness or deformity noted. Skin: Warm and dry. No rash, erythema, pallor or cyanosis Psychiatric: Appropriate mood and affect for situation. Neurological: Alert and keenly responsive. CN II-XII grossly intact, moving all extremities equally and fully. MDM: - Vitals signs showed fever, tachycardia and tachypnea. Patient was initially evaluated in a triage room secondary to ER overcrowding. - History obtained via patient. History as above. - Chronic conditions affecting care: HTN; DM-2; HLD; COPD - Differential diagnoses include, but are not limited to: Congestive heart failure; acute coronary syndrome; COPD/asthma exacerbation; pulmonary edema; pulmonary embolism; pneumonia; pneumothorax; viral syndrome - Order placed for continuous cardiac monitoring. At this time, monitor showed rate of 103 bpm with normal sinus rhythm, per my interpretation. - External medical records reviewed. Wellness visit note dated 05/12/2024 was reviewed. Patient was seen for her routine health maintenance exam and annual wellness exam. Labs were ordered at that visit. - EKG image interpreted by myself showed normal sinus rhythm. Rate tachycardic at 100 bpm. QT 300. No acute ischemic changes. - Laboratory workup interpreted by myself showed leukocytosis (WBC 11.33); elevated hemoglobin (17.4); normal PT/INR; stable electrolytes; elevated lactate (2.6); normal procalcitonin; normal troponin - CXR image reviewed by myself was negative for obvious pneumonia, per my interpretation - COVID/flu/RSV negative - Patient given a duoneb treatment in ER. - Blood cultures obtained - Given 500 cc NS and 1g IV tylenol. Given 2g IV rocephin and 500 mg oral azithromycin for pneumonia treatment. - Given an additional duoneb in ER. - Patient has a curb 65 score of 2 points, making her a moderate risk group with a 30-day mortality of 6.8%. Her curb 65 is positive for an elevated BUN and an elevated age. - Patient technically SIRS criteria at this point with an elevated heart rate and tachypnea. I do have concern about a potential developing pneumonia, given her productive cough, fever and shortness of breath complaints. Will admit to hospitalist service. - Discussion was had with case sealer about patient's case and need for admission - Hospitalist consulted for admission - Patient admitted to [facility] hospitalist service for further evaluation and management. 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 finger Squamous cell skin cancer Arm skin lesion, left TSH elevation Gait disturbance Paraesophageal hernia Former tobacco use Neural foraminal stenosis of lumbar spine Central stenosis of spinal canal Encounter for health maintenance examination Constipation Allergy Chronic obstructive pulmonary disease (Acute) Mild obstructive disease - Sprirometry 06/03/22 Controlled type 2 diabetes with neuropathy (Acute) NIDDM Diabetic peripheral neuropathy associated with type 2 diabetes mellitus (Chronic) Essential hypertriglyceridemia (Acute) Internal hemorrhoids (Acute) Low back pain (Acute) Osteopenia (Acute) Seborrheic dermatitis (Acute) Sensorineural hearing loss (SNHL) of both ears (Acute) B/L hearing aides Stress incontinence in female (Acute) Non-insulin dependent type 2 diabetes mellitus (Chronic) Hypertension (Chronic) Medical History (Updated 10/24/24 @ 17:14 by Andreina Snyder MD) Cellulitis of small toe of left foot Right hip pain Lumbar radiculopathy Cerumen impaction Stress incontinence Hypertriglyceridemia Seasonal allergies has not needed inhaler for a long time Diabetes mellitus, type 2 Hypertension History of edema BLE - takes lasix History of COVID-19 hospitalized x 3 at [facility], most recent 12/2022 History of cellulitis rt foot Hx of bronchitis Degenerative arthritis of lumbar spine Diabetic nephropathy Surgical History History of cataract surgery left History of open reduction and internal fixation (ORIF) procedure right hip History of removal of cyst under neck area History of back surgery Hx of tonsillectomy S/P appendectomy Family History Father Emphysema of lung Sister Breast cancer Denies family history of Ovarian cancer Prostate cancer Myocardial infarction Colorectal cancer Social History Smoking Status: Former smoker Tobacco Type: Cigarettes Age Started Using Tobacco: 17; Age Quit Using Tobacco: 71; packs per day: 0.5; Second Hand Exposure: No; Do You Dip or Chew Tobacco: No; Hx Alcohol Use: No Hx Substance Use: No Preferred Language: Sammarinese Communication Ability: Effective Visual Impairment: No Limitations Hearing Ability: Use of Hearing Aid School Age Teacher Required: No Beliefs That Will Affect Care: None marital status: Current Living Situation: Spouse Current Living Situation Comment: patient, and son 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 Feels Safe at Home: Yes Childhood Exposure to Second-Hand Smoke: Yes Diet: regular Dental Care, Regularly: Yes Physical Activity Frequency: 1-2 Times per Week Seatbelt Use: always Sunscreen Use: Yes Do you think of yourself as: straight/heterosexual Gender Identity: Female Assistive Devices: Glasses and Hearing Aid - Bilateral Allergies Allergies Allergy/AdvReac Type Severity Reaction Status Date / Time gabapentin AdvReac Intermediate Confusion Verified 10/24/24 16:27 morphine AdvReac Mild sick to Verified 10/24/24 16:27 stomach Home Meds Home Medications Medication Instructions Recorded Confirmed cyanocobalamin (vitamin B-12) 100 100 mcg PO BID #30 tabs 09/07/18 10/24/24 mcg tablet atorvastatin 10 mg tablet 10 mg PO PM 02/01/23 10/24/24 cholecalciferol (vitamin D3) 25 1,000 units PO QAM 02/01/23 10/24/24 mcg (1,000 unit) capsule metoprolol succinate 100 mg 100 mg PO QPM 10/24/24 10/24/24 tablet,extended release 24 hr Previous Rx's Medication Instructions Recorded nebulizers #1 ea 05/15/22 albuterol sulfate 90 mcg/actuation 2 puff inhalation Q6H PRN 02/05/23 aerosol inhaler cough/wheeze/shortness of breath #1 inhaler ipratropium 0.5 mg-albuterol 3 mg 3 ml NEB Q6H PRN 02/05/23 (2.5 mg base)/3 mL nebulization cough/wheezing/shortness of breath soln #1 box glipizide 5 mg tablet, extended 5 mg PO QAM #90 tabs 11/17/23 release 24 hr fluticasone fur. 100 mcg-umeclid 1 inh inhalation DAILY #60 ea 05/13/24 62.5 mcg-vilant 25 mcg inhalat.powder (Trelegy Ellipta) benazepril 20 mg tablet 20 mg PO QAM #90 tabs 07/01/24 amlodipine 10 mg tablet 10 mg PO QAM #90 tabs 07/12/24 hydrochlorothiazide 25 mg tablet 25 mg PO Q OTHER DAY PRN swelling 07/13/24 #30 tabs blood sugar diagnostic (OneTouch #100 ea 09/28/24 Verio test strips) metformin 1,000 mg tablet 1,000 mg PO BID #180 tabs 09/28/24 Results & Data (ED) Vital Signs Vital Signs - 24 hr 10/24/24 13:49 10/24/24 15:35 10/24/24 15:40 Temperature 37.7 C H 37.5 C Temperature Source Oral Oral Pulse Rate 106 H Pulse Rate [Right Finger] Pulse Rhythm Regular Pulse Strength Normal Respiratory Rate 26 H Respiratory Effort / Characteristics Non-Labored Spontaneous Respiratory Depth Normal Respiratory Pattern Regular Blood Pressure 126/63 Blood Pressure [Right Arm] Blood Pressure Mean 84 Blood Pressure Mean [Right Arm] Blood Pressure Position Sitting Pulse Oximetry 95 Oxygen Delivery Method Room Air Room Air Sepsis Recent Fever Within 48 Hours No Sepsis New/Unexplained Change in Mental Status N/A Sepsis Action Taken by Nursing No Action Required 10/24/24 15:40 10/24/24 15:40 10/24/24 16:17 Temperature 37.5 C Temperature Source Oral Pulse Rate 102 H Pulse Rate [Right Finger] 104 H Pulse Rhythm Pulse Strength Respiratory Rate 20 Respiratory Effort / Characteristics Non-Labored Spontaneous Respiratory Depth Normal Respiratory Pattern Regular Blood Pressure Blood Pressure [Right Arm] 123/66 Blood Pressure Mean Blood Pressure Mean [Right Arm] 85 Blood Pressure Position Pulse Oximetry 95 95 Oxygen Delivery Method Room Air Room Air Sepsis Recent Fever Within 48 Hours Sepsis New/Unexplained Change in Mental Status Sepsis Action Taken by Nursing 10/24/24 17:12 Temperature Temperature Source Pulse Rate Pulse Rate [Right Finger] Pulse Rhythm Pulse Strength Respiratory Rate 19 Respiratory Effort / Characteristics Non-Labored Spontaneous Respiratory Depth Respiratory Pattern Blood Pressure Blood Pressure [Right Arm] Blood Pressure Mean Blood Pressure Mean [Right Arm] Blood Pressure Position Pulse Oximetry 92 Oxygen Delivery Method Room Air Sepsis Recent Fever Within 48 Hours Sepsis New/Unexplained Change in Mental Status Sepsis Action Taken by Nursing Laboratory Data 10/24/24 14:30 10/24/24 14:30 Lab Results 10/24/24 10/24/24 Range/Units 14:30 14:39 WBC 11.33 H (4.8-10.8) K/ul RBC 5.47 H (4.20-5.40) M/uL Hgb 17.4 H (12.0-16.0) g/dl Hct 49.4 H (37.0-47.0) % MCV 90.3 (80.0-100.0) fL MCH 31.8 (25.0-34.0) pg MCHC 35.2 (32.0-36.0) g/dL RDW Std Deviation 46.8 H (36.4-46.3) fL RDW Coeff of Latasha 14.5 (11.5-14.5) % Plt Count 346 (130-400) K/uL MPV 10.8 (9.4-12.4) fL Immature Gran % (Auto) 0.4 % Neut % (Auto) 75.9 % Lymph % (Auto) 14.7 % Faulkner % (Auto) 7.0 % Eos % (Auto) 1.6 % Baso % (Auto) 0.4 % Neut # (Auto) 8.60 H (1.40-6.50) K/uL Lymph # (Auto) 1.67 (1.20-3.40) K/uL Faulkner # (Auto) 0.79 H (0.11-0.59) K/uL Eos # (Auto) 0.18 (0.00-0.50) K/uL Baso # (Auto) 0.05 (0.00-0.20) K/uL Immature Gran # (Auto) 0.04 (0.01-0.20) K/uL PT 11.4 (9.0-12.0) Seconds INR 1.1 (0.9-1.1) APTT 29 (21-31) Seconds PTT Ratio 1.1 Sodium 139 (136-145) mmol/L Potassium 3.9 (3.5-5.1) mmol/L Chloride 99 (98-107) mmol/L Carbon Dioxide 31 (21-32) mmol/L Anion Gap 9 (3-11) BUN 16 (6-23) mg/dl Creatinine 0.83 (0.6-1.2) mg/dl Est Cr Clr Drug Dosing 46.4 ml/min eGFR 69.47 BUN/Creatinine Ratio 19.3 (10-20) Glucose 192 H (70-99(Fasting)) mg/dl Lactate 2.6 H* (0.4-2.0) mmol/L Calcium 9.9 (8.6-10.3) mg/dl Total Bilirubin 0.8 (0.2-1.0) mg/dl AST 18 (13-39) U/L ALT 13 (7-52) U/L Alkaline Phosphatase 79 (34-104) U/L Troponin I High Sens 8.3 (0-14) pg/ml Total Protein 7.5 (6.0-8.3) gm/dl Albumin 4.5 (3.4-5.0) gm/dl Globulin 3.0 (2.5-4.0) gm/dl Albumin/Globulin Ratio 1.5 (0.9-2) Procalcitonin 0.05 (0-0.5) ng/ml SARS-CoV-2 (PCR) NEGATIVE (Negative) Influenza Type A (PCR) Negative (Neg) Influenza Type B (PCR) Negative (Neg) RSV (RT-PCR) Negative (Neg) Administered Medications Discontinued Medications Albuterol (Albut/Ipratrop 3mg/0.5mg Neb 3 Ml Vial) 3 ml NEB NOW STA; Protocol Stop: 10/24/24 14:31 Last Admin: 10/24/24 15:09 Dose: 3 ml Documented By: SHAUN Azithromycin (Azithromycin 250 Mg Tab) 500 mg PO NOW ONE Stop: 10/24/24 15:57 Last Admin: 10/24/24 16:06 Dose: 500 mg Documented By: RO Sodium Chloride (Nss) 500 mls @ 999 mls/hr IV .Q31M ONE Stop: 10/24/24 15:00 Last Infusion: 10/24/24 16:29 Dose: Infused Documented By: Admin: 10/24/24 15:10 Dose: 999 mls/hr Documented By: SHAUN Acetaminophen (Ofirmev) 1,000 mg in 100 mls @ 400 mls/hr IV NOW STA Stop: 10/24/24 14:44 Last Infusion: 10/24/24 15:26 Dose: Infused Documented By: Admin: 10/24/24 15:09 Dose: 400 mls/hr Documented By: SHAUN Ceftriaxone Sodium (Rocephin) 2,000 mg in 50 mls @ 100 mls/hr IV NOW STA Stop: 10/24/24 16:25 Last Admin: 10/24/24 16:24 Dose: 100 mls/hr Documented By: RO Imaging Data Radiologist's Impression: Chest X-Ray 10/24/24 13:55 XR chest 1V not portable CLINICAL HISTORY: Chest pain, nonspecific COMPARISON STUDY: 06/08/2024 FINDINGS: Stable moderate hiatal hernia. Heart size and pulmonary vasculature are normal. No consolidation or pleural effusion. No pneumothorax. IMPRESSION: No acute findings. ACT 112: Negative or not required by law. Electronically signed by: Billy Juan M.D. 10/24/2024 3:16 PM Discharge Plan Visit Data Chief Complaint: Shortness of Breath/Dyspnea Stated Complaint: COUGHING,SOB ED Provider: Andreina Snyder Discharge Problem: Pneumonia, SIRS (systemic inflammatory response syndrome), Cough, Acute dyspnea, Elevated lactic acid level Condition: Fair Forms Stand Alone Forms: My [facility] [employer] Prescriptions Prescriptions: No Action glipizide 5 mg tablet extended release 24hr 5 mg PO QAM Qty: 90 3RF Rx Instructions: with meal benazepril 20 mg tablet 20 mg PO QAM Qty: 90 3RF amlodipine 10 mg tablet 10 mg PO QAM Qty: 90 3RF hydrochlorothiazide 25 mg tablet 25 mg PO Q OTHER DAY PRN (Reason: swelling) Qty: 30 1RF (DME) OneTouch Verio test strips Strip See Rx Instructions .ROUTE .MEDSUPPLY Qty: 100 3RF Rx Instructions: Test twice daily. metformin 1,000 mg tablet 1,000 mg PO BID Qty: 180 1RF cyanocobalamin (vitamin B-12) 100 mcg tablet 100 mcg PO BID Qty: 30 Trelegy Ellipta 100-62.5-25 mcg blister with device 1 inh inhalation DAILY Qty: 60 1RF Rx Instructions: UNABLE TO VERIFY THIS MED. (DME) nebulizers Misc See Rx Instructions .Route Qty: 1 0RF Rx Instructions: As directed atorvastatin 10 mg tablet 10 mg PO PM Rx Instructions: UNABLE TO VERIFY THIS MED. cholecalciferol (vitamin D3) 1,000 unit capsule 1,000 units PO QAM ipratropium-albuterol 0.5 mg-3 mg(2.5 mg base)/3 mL Solution For Nebulization 3 ml NEB Q6H PRN (Reason: cough/wheezing/shortness of breath) Qty: 1 0RF albuterol sulfate 90 mcg/actuation HFA aerosol inhaler 2 puff inhalation Q6H PRN (Reason: cough/wheeze/shortness of breath) Qty: 1 3RF Rx Instructions: use with spacer device metoprolol succinate 100 mg tablet extended release 24 hr 100 mg PO QPM Rx Instructions: Take 1 tablet by mouth in the evening Referrals Referrals: Balbir Lira MD [Primary Care Provider] -
[2024-10-24 14:47] LABS: Hematocrit (blood only) 49.4 % (37.0-47.0); Hemoglobin 17.4 g/dl (12.0-16.0); Immature Granulocytes # (auto) 0.04 K/uL (0.01-0.20); Immature Granulocytes % (auto) 0.4 %; Mean Corpuscular Hemoglobin 31.8 pg (25.0-34.0); Mean Corpuscular Volume 90.3 fL (80.0-100.0); Platelet Count 346 K/uL (130-400); RDW Standard Deviation 46.8 fL (36.4-46.3); Red Blood Count 5.47 M/uL (4.20-5.40); White Blood Count 11.33 K/ul (4.8-10.8)
[2024-10-24 15:02] LABS: Alanine Aminotransferase 13.0 U/L (7-52); Albumin Globulin Ratio 1.5 (0.9-2); Alkaline Phosphatase 79.0 U/L (34-104); Anion Gap 9.0 (3-11); Bilirubin,Total 0.8 mg/dl (0.2-1.0); Blood Urea Nitrogen 16.0 mg/dl (6-23); Calcium 9.9 mg/dl (8.6-10.3); Carbon Dioxide 31.0 mmol/L (21-32); Chloride 99.0 mmol/L (98-107); Creatinine Clr Calc Pharmacy 46.4 ml/min; Globulin 3.0 gm/dl (2.5-4.0); Glucose 192.0 mg/dl (70-99(Fasting)); Potassium 3.9 mmol/L (3.5-5.1); Sodium 139.0 mmol/L (136-145); Total Protein 7.5 gm/dl (6.0-8.3)
[2024-10-24] MEDS: ACETAMINOPHEN 1,000 MG/100 ML VIAL IV STA (15:09)
[2024-10-24] MEDS: ALBUT/IPRATROP 3MG/0.5MG NEB 3 ML VIAL NEB STA ×2 (15:09→17:15)
[2024-10-24] MEDS: SODIUM CHLORIDE 0.9% 500 ML IV ONE (15:10)
[2024-10-24 15:13] LABS: INR 1.1 (0.9-1.1); Partial Thromboplastin Time 29 Seconds (21-31); Prothrombin Time 11.4 Seconds (9.0-12.0)
--- NOTE | 2024-10-24 15:17 | XRay Report ---
XR chest 1V not portable CLINICAL HISTORY: Chest pain, nonspecific COMPARISON STUDY: 06/08/2024 FINDINGS: Stable moderate hiatal hernia. Heart size and pulmonary vasculature are normal. No consolid ation or pleural effusion. No pneumothorax. IMPRESSION: No acute findings. ACT 112: Negative or not required by law. Electronically signed by: Billy Juan M.D. 10/24/2024 3:16 PM
[2024-10-24 15:30] LABS: Influenza A virus by PCR Negative (Neg); Influenza B virus by PCR Negative (Neg); SARS CoV2 RNA(COVID-19) Ceph NEGATIVE (Negative)
[2024-10-24] MEDS: AZITHROMYCIN 250 MG TAB PO ONE (16:06)
[2024-10-24] MEDS: cefTRIAXone SODIUM 2,000 MG/50 ML BAG IV STA (16:24)
--- NOTE | 2024-10-24 16:54 | History & Physical Report ---
Date of Service October 24, 2024 Assessment & Plan (1) Pneumonia: (2) Sepsis: (3) Chronic obstructive pulmonary disease: (4) Controlled type 2 diabetes with neuropathy: Plan This patient is an 84-year-old female with a history of DM2 with neuropathy, COPD, HTN, lumbar spinal stenosis, and seasonal allergies who presents to the ED with cough and shortness of breath worsening over the last 1-2 days. Her cough is productive of green sputum and she has also been having diffuse bodyaches and a headache from coughing. In the ED, she was noted to have an elevated temperature but not quite a fever, a mild leukocytosis, tachypnea and tachycardia. She was not hypoxemic. CXR radiographically negative for pneumonia but clinically found to have pneumonia and auscultation. Her lactate was mildly elevated at 2.6 and a procalcitonin was negative. She tested negative for COVID/flu A and B/RSV, but a BioFire was ordered on admission and was positive for rhino/enterovirus. She felt better after being given an albuterol nebulizer. She was given ceftriaxone and azithromycin for community- acquired pneumonia. She will be admitted for community-acquired pneumonia and a COPD exacerbation secondary to rhino/enterovirus. #Sepsis/community-acquired pneumonia/Rhino/enterovirus/COPD exacerbation- presented with increasing shortness of breath, productive cough, low-grade fever, mild leukocytosis, tachypnea, tachycardia, and elevated lactate. With mild hypoxemia with sleep to 89% on room air. BP normal consistent with sepsis but not severe sepsis. CXR negative for pneumonia at this point but likely early in the course. 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 Tachypnea and tachycardia improved with nebulizer treatment. Received IV fluid bolus of 1 L in the ED and lactate remained similar at 2.3 but could be elevated from mild hypoxemia - Admit to medical floor with telemetry - Continue IV Solu-Medrol, scheduled nebulizers, and add guaifenesin with dextromethorphan for cough - Collect sputum culture and follow blood cultures - Continue ceftriaxone and azithromycin - Repeat CXR in the a.m. to see if pneumonia fluffs out - Isolation precautions for rhino/enterovirus - Supplemental O2 as needed to keep pulse ox greater than 90% - Follow CBC, BMP, magnesium in the morning #DM2 with neuropathy-typically fairly well-controlled with recent HgbA1c 6.9% in 04/2024. Only on metformin and glipizide at home - May develop hyperglycemia with IV steroids - Give NovoLog with correction factor 35, carb ratio 15 for now and may need to add Lantus by tomorrow - Check HbA1c in the morning - BSGs before every meal and at bedtime, diabetic diet #HTN/HLD-BP is controlled - Continue home metoprolol, benazepril, amlodipine DVT prophylaxis-Lovenox SQ, SCDs Disposition-admit to medical floor with telemetry History of Present Illness Chief Complaint: Shortness of breath Primary Care Provider: Balbir Lira MD This patient is an 84-year-old female with a history of DM2 with neuropathy, COPD, HTN, lumbar spinal stenosis, and seasonal allergies who presents to the ED with cough and shortness of breath worsening over the last 1-2 days. Her cough is productive of green sputum and she has also been having diffuse bodyaches and a headache from coughing. In the ED, she was noted to have an elevated temperature but not quite a fever, a mild leukocytosis, tachypnea and tachycardia. She was not hypoxemic. CXR radiographically negative for pneumonia but clinically found to have pneumonia and auscultation. Her lactate was mildly elevated at 2.6 and a procalcitonin was negative. She tested negative for COVID/flu A and B/RSV, but a BioFire was ordered on admission and was positive for rhino/enterovirus. She felt better after being given an albuterol nebulizer. She was given ceftriaxone and azithromycin for community- acquired pneumonia. She will be admitted for community-acquired pneumonia and a COPD exacerbation secondary to rhino/enterovirus. Allergies Allergy/AdvReac Type Severity Reaction Status Date / Time gabapentin AdvReac Intermediate Confusion Verified 10/24/24 16:27 morphine AdvReac Mild sick to Verified 10/24/24 16:27 stomach Home Medications Medication Instructions Recorded Confirmed Type cyanocobalamin (vitamin B-12) 100 100 mcg PO BID #30 tabs 09/07/18 10/24/24 History mcg tablet nebulizers #1 ea 05/15/22 05/27/24 Rx atorvastatin 10 mg tablet 10 mg PO PM 02/01/23 10/24/24 History cholecalciferol (vitamin D3) 25 1,000 units PO QAM 02/01/23 10/24/24 History mcg (1,000 unit) capsule albuterol sulfate 90 mcg/actuation 2 puff inhalation Q6H PRN 02/05/23 10/24/24 Rx aerosol inhaler cough/wheeze/shortness of breath #1 inhaler ipratropium 0.5 mg-albuterol 3 mg 3 ml NEB Q6H PRN 02/05/23 10/24/24 Rx (2.5 mg base)/3 mL nebulization cough/wheezing/shortness of breath soln #1 box glipizide 5 mg tablet, extended 5 mg PO QAM #90 tabs 11/17/23 10/24/24 Rx release 24 hr fluticasone fur. 100 mcg-umeclid 1 inh inhalation DAILY #60 ea 05/13/24 10/24/24 Rx 62.5 mcg-vilant 25 mcg inhalat.powder (Trelegy Ellipta) benazepril 20 mg tablet 20 mg PO QAM #90 tabs 07/01/24 10/24/24 Rx amlodipine 10 mg tablet 10 mg PO QAM #90 tabs 07/12/24 10/24/24 Rx hydrochlorothiazide 25 mg tablet 25 mg PO Q OTHER DAY PRN swelling 07/13/24 10/24/24 Rx #30 tabs blood sugar diagnostic (OneTouch #100 ea 09/28/24 Rx Verio test strips) metformin 1,000 mg tablet 1,000 mg PO BID #180 tabs 09/28/24 10/24/24 Rx metoprolol succinate 100 mg 100 mg PO QPM 10/24/24 10/24/24 History tablet,extended release 24 hr Past Med/Surg History Problem List (Updated 10/24/24 @ 17:46 by Alla June MD) Sepsis Elevated lactic acid level (Acute) Acute dyspnea (Acute) Cough (Acute) SIRS (systemic inflammatory response syndrome) (Acute) Pneumonia (Acute) Squamous cell carcinoma of skin of right middle finger Squamous cell skin cancer Arm skin lesion, left TSH elevation Gait disturbance Paraesophageal hernia Former tobacco use Neural foraminal stenosis of lumbar spine Central stenosis of spinal canal Encounter for health maintenance examination Constipation Allergy Chronic obstructive pulmonary disease (Acute) Mild obstructive disease - Sprirometry 4/18/23 Controlled type 2 diabetes with neuropathy (Acute) NIDDM Diabetic peripheral neuropathy associated with type 2 diabetes mellitus (Chronic) Essential hypertriglyceridemia (Acute) Internal hemorrhoids (Acute) Low back pain (Acute) Osteopenia (Acute) Seborrheic dermatitis (Acute) Sensorineural hearing loss (SNHL) of both ears (Acute) B/L hearing aides Stress incontinence in female (Acute) Non-insulin dependent type 2 diabetes mellitus (Chronic) Hypertension (Chronic) Medical History Cellulitis of small toe of left foot Right hip pain Lumbar radiculopathy Cerumen impaction Stress incontinence Hypertriglyceridemia Seasonal allergies has not needed inhaler for a long time Diabetes mellitus, type 2 Hypertension History of edema BLE - takes lasix History of COVID-19 hospitalized x 3 at [facility], most recent 12/2022 History of cellulitis rt foot Hx of bronchitis Degenerative arthritis of lumbar spine Diabetic nephropathy Surgical History History of cataract surgery left History of open reduction and internal fixation (ORIF) procedure right hip History of removal of cyst under neck area History of back surgery Hx of tonsillectomy S/P appendectomy Family History Father Emphysema of lung Sister Breast cancer Denies family history of Ovarian cancer Prostate cancer Myocardial infarction Colorectal cancer Social History Smoking Status: Former smoker Tobacco Type: Cigarettes Age Started Using Tobacco: 17; Age Quit Using Tobacco: 71; packs per day: 0.5; Second Hand Exposure: No; Do You Dip or Chew Tobacco: No; Hx Alcohol Use: No Hx Substance Use: No Preferred Language: Indonesian Communication Ability: Effective Visual Impairment: No Limitations Hearing Ability: Use of Hearing Aid Wearing Apparel Presser Required: No Beliefs That Will Affect Care: None marital status: Current Living Situation: Spouse Current Living Situation Comment: patient, and son 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 With mild pain in the left upper chest wall x 2 days. Physical Exam Constitutional: WD/WN, vitals as above Eyes: PERRL, conjunctivae normal, anicteric sclerae ENMT: external ear and nose normal, oropharynx normal Neck: trachea midline, no thyromegaly Respiratory: normal respiratory effort and + cough Auscultation: + rhonchi (Diffusely); no crackles and no wheezes Cardiovascular: Rate/Rhythm: regular rhythm and + tachycardic Heart Sounds: no murmur Extremities: no edema Chest (Breasts): Chest: normal inspection of chest Gastrointestinal (Abdomen): normal bowel sounds, soft, nontender, no hepatosplenomegaly Musculoskeletal: Extremities: extremities normal to inspection; no cyanosis and no clubbing Skin: no rashes, warm and dry Neurologic: moves all extremities and awake; no focal motor deficits Psychiatric: A+Ox3, euthymic affect Lymphatic: no lymphedema Results & Data Results & Data Vital Signs (Past 12 Hours) Vital Signs Temp Pulse Pulse Resp BP BP Pulse Ox 10/24/24 16:17 102 H 10/24/24 15:40 95 10/24/24 15:40 37.5 C 104 H 20 123/66 95 10/24/24 15:40 37.5 C 10/24/24 15:35 10/24/24 13:49 37.7 C H 106 H 26 H 126/63 95 O2 Del Method 10/24/24 16:17 10/24/24 15:40 Room Air 10/24/24 15:40 Room Air 10/24/24 15:40 10/24/24 15:35 Room Air 10/24/24 13:49 Room Air Laboratory Results CBC, PT/PTT/INR, CMP, lactate, troponin, procalcitonin, COVID/flu/RSV, and respiratory bio fire reviewed Diagnostic Findings CXR image personally reviewed by me and agree with the following report: Chest X-Ray 10/24/24 13:55 XR chest 1V not portable CLINICAL HISTORY: Chest pain, nonspecific COMPARISON STUDY: 06/08/2024 FINDINGS: Stable moderate hiatal hernia. Heart size and pulmonary vasculature are normal. No consolidation or pleural effusion. No pneumothorax. IMPRESSION: No acute findings. ECG Additional Comments: ECG on 10/24/2024 at 1443 with normal sinus rhythm, rate 100, no acute ischemic changes Code Status & VTE Plan Code Status DNR/DNI VTE Prophylaxis Plan VTE Prophylaxis will be ordered: Yes PG Care Time/CCT Total # of Minutes Spent Total Time Spent with Patient: Total time spent is greater than 50% in coordination of care (as documented) at patient's floor/unit and/or counseling patient: Coding Level of Care Code 60064 INT INP/OBS CARE 375MIN Diagnoses Pneumonia J18.9 Sepsis A41.9 Chronic obstructive pulmonary disease J44.9 Controlled type 2 diabetes with neuropathy E11.40
[2024-10-24 18:17] LABS: Chlamydia pneumoniae PCR Not Detected (NotDetected); Coronavirus 229E PCR Not Detected (NotDetected); Coronavirus CoV-2 (COVID19)PCR Not Detected (NotDetected); Coronavirus HKU1 PCR Not Detected (NotDetected); Coronavirus NL63 PCR Not Detected (NotDetected); Coronavirus OC43PCR Not Detected (NotDetected); Human Metapneumovirus PCR Not Detected (NotDetected); Parainfluenza Virus 1 PCR Not Detected (NotDetected); Parainfluenza Virus 2 PCR Not Detected (NotDetected); Parainfluenza Virus 3 PCR Not Detected (NotDetected); Parainfluenza Virus 4 PCR Not Detected (NotDetected); Respiratory Syncytial VirusPCR Not Detected (NotDetected); Rhinovirus/Enterovirus PCR DETECTED (NotDetected)
[2024-10-24] MEDS ORDERED: GLUCOSE 40% GEL 15 GM TUBE PO PRN (19:55)
[2024-10-24] MEDS ORDERED: POLYETHYLENE (MIRALAX) 17 GM PACK PO PRN (19:55)
[2024-10-24] MEDS ORDERED: GLUCAGON FOR INJ 1 MG VIAL SQ PRN (19:55)
[2024-10-24] MEDS ORDERED: ONDANSETRON INJ 2 MG/ML 2 ML VIAL IV PRN (19:55)
[2024-10-24] MEDS ORDERED: DEXTROSE 50% 50 ML SYRINGE IV PRN (19:55)
[2024-10-24] MEDS ORDERED: CARBOHYDRATES FOR HYPOGLYCEMIA PO PRN (19:55)
[2024-10-24] MEDS ORDERED: GLUCOSE 10 TAB/TUBE PO PRN (19:55)
[2024-10-24] MEDS: INSULIN ASPART PER UNIT CHARGE SC SCH (21:58)
[2024-10-24] MEDS: ENOXAPARIN INJ 40 MG/0.4 ML SYR SQ SCH (22:00)
[2024-10-24] MEDS: METOPROLOL SUCC 50MG EXT REL TAB PO SCH (22:01)
[2024-10-24] MEDS: CYANOCOBALAMIN (B-12) 100 MCG TABLET PO SCH (22:01)
[2024-10-24] MEDS: ATORVASTATIN 10 MG TAB PO SCH (22:02)
[2024-10-24] MEDS: ALBUT/IPRATROP 3MG/0.5MG NEB 3 ML VIAL NEB SCH (22:23)
[2024-10-25 07:45] LABS: Hematocrit (blood only) 41.6 % (37.0-47.0); Hemoglobin 13.9 g/dl (12.0-16.0); Immature Granulocytes # (auto) 0.02 K/uL (0.01-0.20); Immature Granulocytes % (auto) 0.2 %; Mean Corpuscular Hemoglobin 30.1 pg (25.0-34.0); Mean Corpuscular Volume 90.0 fL (80.0-100.0); Platelet Count 278 K/uL (130-400); RDW Standard Deviation 47.4 fL (36.4-46.3); Red Blood Count 4.62 M/uL (4.20-5.40); White Blood Count 8.46 K/ul (4.8-10.8)
[2024-10-25 07:53] LABS: Hemoglobin A1C 7.2 % (4.5-5.6)
[2024-10-25 08:10] LABS: Anion Gap 10.0 (3-11); Blood Urea Nitrogen 17.0 mg/dl (6-23); Calcium 9.1 mg/dl (8.6-10.3); Carbon Dioxide 27.0 mmol/L (21-32); Chloride 103.0 mmol/L (98-107); Creatinine Clr Calc Pharmacy 51.5 ml/min; Glucose 145.0 mg/dl (70-99(Fasting)); Magnesium 1.4 mg/dl (1.7-2.4); Potassium 3.8 mmol/L (3.5-5.1); Sodium 140.0 mmol/L (136-145)
--- NOTE | 2024-10-25 08:13 | XRay Report ---
EXAM: XR chest 1V portable CLINICAL HISTORY: f/u pneumonia TECHNIQUE: An X-ray image of the chest is obtained in AP projection. COMPARISON: Comparison is made with the prior examination dated 06/08/2024. FINDINGS: Pulmonary Parenchyma: No evidence of consolidation, collapse, or focal opacities. No pulmonary nodules are identified. No evidence of pleural effusion or pleural thickening. Heart and Mediastinum: Heart size and shape are normal. No mediastinal widening or masses. No hilar or mediastinal lymphadenopathy. Aortic calcific atheromatous changes Retrocardiac ovoid-shaped lucency is likely a hiatal hernia (unchanged). Bony Thorax: Bony thorax appears intact without fractures or deformities. Soft Tissues: Soft tissues overlying the chest wall are unremarkable. IMPRESSION: 1. No evidence of consolidation, collapse, or focal opacities. 2. Retrocardiac ovoid-shaped lucency is likely a hiatal hernia (unchanged). 3. No interval changes. Electronically signed by Anatoliy Bhatt 10-25-2024 08:12 AM
[2024-10-25] MEDS ORDERED: NON-FORMULARY MEDICATION (Fluticasone-Umeclidin-Vilanter [Trelegy Ellipta] 100-62.5-25 mcg INH SCH (09:00)
[2024-10-25] MEDS: FLUTICASONE FUROATE 100MCG 14 PUFFS/INHALER INH SCH (09:24)
[2024-10-25] MEDS: UMECLIDINIUM/VILANTEROL 62.5/25MCG 7 PUFFS/INHALER INH SCH (09:24)
[2024-10-25] MEDS: CHOLECALCIFEROL 25 MCG (1000 UNITS) TAB PO SCH (09:25)
[2024-10-25] MEDS: ENALAPRIL MALEATE 10 MG TAB PO SCH (09:25)
[2024-10-25] MEDS: AZITHROMYCIN 250 MG TAB PO SCH (09:26)
--- NOTE | 2024-10-25 09:41 | Electrocardiogram Report ---
Test Reason : Blood Pressure : */* mmHG Vent. Rate : 100 BPM Atrial Rate : 100 BPM P-R Int : 172 ms QRS Dur : 74 ms QT Int : 330 ms P-R-T Axes : -22 4 15 degrees QTcB Int : 425 ms Normal sinus rhythm Possible Inferior infarct , age undetermined Poor R wave progression, consider anterior ID vs. lead placement vs. LVH Abnormal ECG When compared with ECG of 08-Jun-2024 17:06, No significant change was found Confirmed by Trevin Mohr ([id number]) on 10/25/2024 9:40:30 AM Referred By: REFERRED SELF Confirmed By: Trevin Mhor
[2024-10-25] MEDS: MAGNESIUM SULFATE / D5W 1 GM/100 ML BAG IV SCH (09:46)
[2024-10-25] MEDS: ACETAMINOPHEN 325 MG TAB PO PRN (10:56)
--- NOTE | 2024-10-25 11:35 | Hospitalist Progress Note ---
Date of Service October 25, 2024 Assessment & Plan (1) Rhinovirus infection: (2) Acute bronchitis: (3) Sepsis: (4) Chronic obstructive pulmonary disease: Plan This patient is an 84-year-old female with a history of DM2 with neuropathy, COPD, HTN, lumbar spinal stenosis, and seasonal allergies who is admitted with an acute COPD exacerbation secondary to rhino/enterovirus. #Sepsis/Rhino/enterovirus/COPD exacerbation-presented with increasing shortness of breath, productive cough, low-grade fever, mild leukocytosis, tachypnea, tachycardia, and elevated lactate. With mild hypoxemia with sleep to 89% on room air. BP normal consistent with sepsis but not severe sepsis. CXR negative for pneumonia x 2 and antibiotics subsequently discontinued. 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 Tachypnea and tachycardia improved with nebulizer treatment. Received IV fluid bolus of 1 L in the ED and lactate remained similar at 2.3 but could be elevated from mild hypoxemia. Remains with significant cough and rhonchi. Leukocytosis, tachycardia, and tachypnea now resolved. Remains afebrile - Add Tessalon Perles 200 mg p.o. 3 times daily scheduled, continue guaifenesin DM scheduled for cough - Continue IV Solu-Medrol, scheduled nebulizers - Collect sputum culture and follow blood cultures-no growth to date - Continue azithromycin for COPD exacerbation, but given lack of pneumonia and negative procalcitonin, will discontinue ceftriaxone - Isolation precautions for rhino/enterovirus - Supplemental O2 as needed to keep pulse ox greater than 90%-none needed - Follow BMP, magnesium in the morning #Hypomagnesemia-magnesium low at 1.4 -Replace magnesium with magnesium sulfate 2 g IV - Follow BMP and magnesium in the morning #Headache-likely due to hypomagnesemia and severe cough - Tylenol as needed #DM2 with neuropathy-typically fairly well-controlled with recent HgbA1c 6.9% in 04/2024 and remains controlled at 7.2% here. Only on metformin and glipizide at home - May develop hyperglycemia with IV steroids although seems to be doing well thus far - Continue NovoLog with correction factor 35, carb ratio 15 for now and adjust as needed - BSGs before every meal and at bedtime, diabetic diet #HTN/HLD-BP is controlled - Continue home metoprolol, benazepril, amlodipine DVT prophylaxis-Lovenox SQ, SCDs Disposition-continued stay but can downgrade to medical/surgical unit Admission and Anticipated Discharge Date Admission Date: October 24, 2024 Subjective Patient still coughing quite a bit but feels like she is not coughing up as much sputum and the cough is slightly less frequent. Has a bad headache from all the coughing and took Tylenol. Is moving her bowels, eating, out of bed to chair, otherwise no complaints. Telemetry with normal sinus rhythm, PACs, PVCs, rates in the 70s-90s Physical Exam Constitutional: WD/WN, vitals as above Neck: trachea midline, no thyromegaly Respiratory: normal respiratory effort and + cough Auscultation: + rhonchi (Diffusely); no crackles and no wheezes Cardiovascular: RRR, no murmur, no edema Chest (Breasts): Chest: normal inspection of chest Gastrointestinal (Abdomen): normal bowel sounds, soft, nontender, no hepatosplenomegaly Musculoskeletal: Extremities: extremities normal to inspection; no cyanosis and no clubbing Skin: no rashes, warm and dry Neurologic: moves all extremities and awake; no focal motor deficits Psychiatric: A+Ox3, euthymic affect Lymphatic: no lymphedema Results & Data Results & Data Vital Signs (Past 12 Hours) Vital Signs Temp Pulse Pulse Resp BP Pulse Ox O2 Del Method 10/25/24 11:20 36.8 C 75 20 108/67 92 Room Air 10/25/24 08:01 36.8 C 76 20 104/66 91 Room Air 10/25/24 07:12 73 16 93 Room Air 10/25/24 03:46 36.6 C 69 18 128/69 92 Room Air 10/25/24 00:56 73 10/25/24 00:51 85 Laboratory Results CBC, BMP, magnesium, HgbA1c, blood cultures reviewed Diagnostic Findings CXR image personally reviewed by me and agree with the following report: Chest X-Ray 10/25/24 07:00 EXAM: XR chest 1V portable CLINICAL HISTORY: f/u pneumonia TECHNIQUE: An X-ray image of the chest is obtained in AP projection. COMPARISON: Comparison is made with the prior examination dated 06/08/2024. FINDINGS: Pulmonary Parenchyma: No evidence of consolidation, collapse, or focal opacities. No pulmonary nodules are identified. No evidence of pleural effusion or pleural thickening. Heart and Mediastinum: Heart size and shape are normal. No mediastinal widening or masses. No hilar or mediastinal lymphadenopathy. Aortic calcific atheromatous changes Retrocardiac ovoid-shaped lucency is likely a hiatal hernia (unchanged). Bony Thorax: Bony thorax appears intact without fractures or deformities. Soft Tissues: Soft tissues overlying the chest wall are unremarkable. IMPRESSION: 1. No evidence of consolidation, collapse, or focal opacities. 2. Retrocardiac ovoid-shaped lucency is likely a hiatal hernia (unchanged). 3. No interval changes. Electronically signed by Anatoliy Bhatt 10-25-2024 08:12 AM PG Care Time/CCT Total # of Minutes Spent Total Time Spent with Patient: Total time spent is greater than 50% in coordination of care (as documented) at patient's floor/unit and/or counseling patient: Coding Level of Care Code 51530 SUB INP/OBS CARE 2/35MIN Diagnoses Rhinovirus infection B34.8 Acute bronchitis J20.9 Sepsis A41.9 Chronic obstructive pulmonary disease J44.9
[2024-10-25] MEDS: BENZONATATE 100 MG CAPSULE PO SCH (13:39)
[2024-10-25] MEDS ORDERED: cefTRIAXone SODIUM 2,000 MG/50 ML BAG IV SCH (17:30)
[2024-10-26 07:16] VITALS: RESP 20
[2024-10-26 07:27] VITALS: BP 101/64; PULSE 70; TEMP 97.5
[2024-10-26 09:09] LABS: Anion Gap 8.0 (3-11); Blood Urea Nitrogen 26.0 mg/dl (6-23); Calcium 9.4 mg/dl (8.6-10.3); Carbon Dioxide 28.0 mmol/L (21-32); Chloride 102.0 mmol/L (98-107); Creatinine Clr Calc Pharmacy 41.1 ml/min; Glucose 191.0 mg/dl (70-99(Fasting)); Magnesium 1.8 mg/dl (1.7-2.4); Potassium 4.2 mmol/L (3.5-5.1); Sodium 138.0 mmol/L (136-145)
--- NOTE | 2024-10-26 10:56 | Discharge Summary ---
Discharge Summary Date of Service October 26, 2024 Principal Dx & Hospital Course #1 = Principal Diagnosis (1) Rhinovirus infection: (2) Acute bronchitis: (3) Sepsis: (4) Chronic obstructive pulmonary disease: Plan This patient is an 84-year-old female with a history of DM2 with neuropathy, COPD, HTN, lumbar spinal stenosis, and seasonal allergies who is admitted with an acute COPD exacerbation and sepsis secondary to rhino/enterovirus. #Sepsis/Rhino/enterovirus/COPD exacerbation-presented with increasing shortness of breath, productive cough, low-grade fever, mild leukocytosis, tachypnea, ta chycardia, and elevated lactate. With mild hypoxemia with sleep to 89% on room air which is now resolved. BP normal consistent with sepsis but not severe sepsis. CXR negative for pneumonia x 2, procalcitonin negative- ceftriaxone subsequently discontinued. 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 Tachypnea and tachycardia improved with nebulizer treatment. Received IV fluid bolus of 1 L in the ED and lactate remained similar at 2.3 but could be elevated from mild hypoxemia. Remains with significant cough and rhonchi but overall improving. Leukocytosis, tachycardia, and tachypnea now resolved. Remains afebrile -Continue Tessalon Perles 200 mg p.o. 3 times daily scheduled, continue guaifenesin DM scheduled for cough -Received IV Solu-Medrol and will convert to prednisone taper on discharge -Continue scheduled nebulizers and maintenance inhalers at home -Never collected sputum culture and blood cultures remained no growth to date at the time of discharge - Continue azithromycin for COPD exacerbation and finish out a 5-day course on discharge -Continue isolation at home due to rhino/enterovirus x 5 more days - Supplemental O2 as needed to keep pulse ox greater than 90%-none needed #Hypomagnesemia-magnesium low at 1.4 and normalized after replacement. Could be secondary to HCTZ use - Follow magnesium level as an outpatient #Headache-likely due to hypomagnesemia and severe cough - Tylenol as needed #DM2 with neuropathy-typically fairly well-controlled with recent HgbA1c 6.9% in 04/2024 and remains controlled at 7.2% here. Only on metformin and glipizide at home -Did not develop hyperglycemia with IV steroids -Received NovoLog with correction factor 35, carb ratio 15 -Can resume home glipizide and metformin on discharge #HTN/HLD-BP remained controlled - Continue home metoprolol, benazepril, amlodipine DVT prophylaxis-Lovenox SQ, SCDs Disposition-stable for discharge to home Notes For Next Care Provider Follow magnesium level as an outpatient Medication Changes From Visit Added prednisone taper, azithromycin 250 mg p.o. once daily x 2 more days Added Tessalon Perles for cough Admission HPI Per Admitting Provider This patient is an 84-year-old female with a history of DM2 with neuropathy, COPD, HTN, lumbar spinal stenosis, and seasonal allergies who presents to the ED with cough and shortness of breath worsening over the last 1-2 days. Her cough is productive of green sputum and she has also been having diffuse bodyaches and a headache from coughing. In the ED, she was noted to have an elevated temperature but not quite a fever, a mild leukocytosis, tachypnea and tachycardia. She was not hypoxemic. CXR radiographically negative for pneumonia but clinically found to have pneumonia and auscultation. Her lactate was mildly elevated at 2.6 and a procalcitonin was negative. She tested negative for COVID/flu A and B/RSV, but a BioFire was ordered on admission and was positive for rhino/enterovirus. She felt better after being given an albuterol nebulizer. She was given ceftriaxone and azithromycin for community- acquired pneumonia. She will be admitted for community-acquired pneumonia and a COPD exacerbation secondary to rhino/enterovirus. Discharge Exam Constitutional WD/WN, vitals as above Neck trachea midline, no thyromegaly Respiratory normal respiratory effort and + cough Auscultation: + rhonchi (Diffusely); no crackles and no wheezes Cardiovascular RRR, no murmur, no edema Chest (Breasts) Chest: normal inspection of chest Gastrointestinal (Abdomen) normal bowel sounds, soft, nontender, no hepatosplenomegaly Musculoskeletal Extremities: extremities normal to inspection; no cyanosis and no clubbing Skin no rashes, warm and dry Neurologic moves all extremities and awake; no focal motor deficits Psychiatric A+Ox3, euthymic affect Lymphatic no lymphedema Discharge Plan Discharge Items Patient Disposition: Home - Self-Care Reason For Visit: PNEUMONIA,SEPSIS Discharge Diagnosis: Rhino/enterovirus, acute bronchitis Sepsis-resolved COPD exacerbation Condition on Discharge: Fair Activity: As commented below Bathing: No limitations Exercise/Sports: Gradually increase as tolerated Non-emergency contact: Primary Care Provider Call non-emergency contact if: you have any medication questions, your symptoms worsen, you have a fever and your temperature is above 101 Follow-up/Referrals: Balbir Lira MD [Primary Care Provider] - 11/02/24 10:30 am (Full work within 1-2 weeks) Diet: Carb Consistent or DM2 Addtl Attending Provider Instructions: Please finish out the course of antibiotics with azithromycin for your bronchitis. Please finish out the tapering course of prednisone for the COPD with bronchitis as well. Otherwise, you can continue on the Tessalon Perles for cough and you can also buy guaifenesin with dextromethorphan [id number] for cough. It may take another 1-2 weeks to recover from this viral illness with bronchitis. You are still contagious and should refrain from being around others that are vulnerable to illness for another 5 days. Pending Studies at Discharge: Yes (Final blood culture results-no growth to date) Stand-Alone Forms: My [facility] Medications and DC Order Prescriptions: New azithromycin 250 mg Tablet 250 mg PO QAM Qty: 2 0RF benzonatate 200 mg capsule 200 mg PO TID Qty: 30 0RF dextromethorphan-guaifenesin [Robitussin Cough-Chest Pan DM] 5-100 mg/5 mL Liquid 10 ml PO Q6H PRN (Reason: cough) Qty: 400 0RF Rx Instructions: [id number] prednisone 10 mg tablet 10 mg PO DIRECTED Qty: 20 0RF Rx Instructions: Take 4 tablets daily x 2 days, then decrease by 10 mg every 2 days until gone acetaminophen 325 mg Tablet 650 mg PO Q4H PRN (Reason: Pain or headache) Qty: 30 0RF Continued glipizide 5 mg tablet extended release 24hr 5 mg PO QAM Qty: 90 3RF Rx Instructions: with meal benazepril 20 mg tablet 20 mg PO QAM Qty: 90 3RF amlodipine 10 mg tablet 10 mg PO QAM Qty: 90 3RF hydrochlorothiazide 25 mg tablet 25 mg PO Q OTHER DAY PRN (Reason: swelling) Qty: 30 1RF (DME) OneTouch Verio test strips Strip See Rx Instructions .ROUTE .MEDSUPPLY Qty: 100 3RF Rx Instructions: Test twice daily. metformin 1,000 mg tablet 1,000 mg PO BID Qty: 180 1RF cyanocobalamin (vitamin B-12) 100 mcg tablet 100 mcg PO BID Qty: 30 Trelegy Ellipta 100-62.5-25 mcg blister with device 1 inh inhalation DAILY Qty: 60 1RF Rx Instructions: UNABLE TO VERIFY THIS MED. (DME) nebulizers Misc See Rx Instructions .Route Qty: 1 0RF Rx Instructions: As directed atorvastatin 10 mg tablet 10 mg PO PM Rx Instructions: UNABLE TO VERIFY THIS MED. cholecalciferol (vitamin D3) 1,000 unit capsule 1,000 units PO QAM ipratropium-albuterol 0.5 mg-3 mg(2.5 mg base)/3 mL Solution For Nebulization 3 ml NEB Q6H PRN (Reason: cough/wheezing/shortness of breath) Qty: 1 0RF albuterol sulfate 90 mcg/actuation HFA aerosol inhaler 2 puff inhalation Q6H PRN (Reason: cough/wheeze/shortness of breath) Qty: 1 3RF Rx Instructions: use with spacer device metoprolol succinate 100 mg tablet extended release 24 hr 100 mg PO QPM Rx Instructions: Take 1 tablet by mouth in the evening Discharge Orders: Discharge Order (Routine); Ordered 10/26/24 Ordered By: Alla Guillaume/Other Patient Handouts: Managing Type 2 Diabetes Admission Data Admit Date/Time: 10/24/24 18:28 Attending Provider: Alla June Admit Provider: Alla June Primary Care Provider: Balbir Lira V. Other Providers: Alla June Hospital Stay Data Consultations 10/24/24 16:55 ED Decision to Admit Stat Pending Results Patient Have Any Pending Studies at Discharge: Yes (Final blood culture results- no growth to date) Discharge Instructions Given to Patient (Per Discharging Provider) Please finish out the course of antibiotics with azithromycin for your bronchitis. Please finish out the tapering course of prednisone for the COPD with bronchitis as well. Otherwise, you can continue on the Tessalon Perles for cough and you can also buy guaifenesin with dextromethorphan [id number] for cough. It may take another 1-2 weeks to recover from this viral illness with bronchitis. You are still contagious and should refrain from being around others that are vulnerable to illness for another 5 days. Total Time Total Time Spent Total Time Spent (In Minutes): 35 minutes Total Time Includes: Examination of the Patient, Discharge Planning and Medication Reconciliation Coding Level of Care Code 03919 INP/OBS DISCH >30 MIN Diagnoses Rhinovirus infection B34.8 Acute bronchitis J20.9 Sepsis A41.9 Chronic obstructive pulmonary disease J44.9
[2024-10-26 14:04] VITALS: O2SAT 94
== END 2024-10-26 13:41 | disposition home or self-care (01) ==
LOC: SUATTDRO → ED 13:10 → INTOOBSV 18:28 → EDINP 18:28 → 2N 19:55